=== PATIENT | female | born 1960 | race African-American/Black ===

== ENCOUNTER 2018-10-04 12:03 | Inpatient (IN) | payer OTHER ==
[2018-10-04 13:30] VITALS: BMI 24.4
--- NOTE | 2018-10-04 14:36 | HP ---
CIWA Score - CIWA Score Nausea/Vomitin Muscle Tremors: 2 Anxiety: 2 Agitation: 2 Paroxysmal Sweats: 1-Minimal Palms Moist Orientation: 0-Oriented Tacttile Disturbances: 1-Very Mild Itch/Numbness Auditory Disturbances: 1-Very Mild Visual Disturbances: 0-None Headache: 2-Mild CIWA-Ar Total Score: 13 CIWA Score Nausea/Vomitin Muscle Tremors: 2 Anxiety: 2 Agitation: 2 Paroxysmal Sweats: 1-Minimal Palms Moist Orientation: 0-Oriented Tacttile Disturbances: 1-Very Mild Itch/Numbness Auditory Disturbances: 1-Very Mild Visual Disturbances: 0-None Headache: 2-Mild CIWA-Ar Total Score: 13 - Admission Criteria Patient presents the following: CIWA greater than 12, Acute intervention needed for co-occurring med or psych disorder Admission Criteria Met: Admission criteria met Admission ROS BHS - HPI Chief Complaint: i need help to stop drinking alcohol,and cocaine Allergies/Adverse Reactions: Allergies Allergy/AdvReac Type Severity Reaction Status Date / Time No Known Allergies Allergy Verified 10/04/18 14:18 History of Present Illness: this 57 years old female with alcohol and cocaine dependence seeking detox, withdrawal symptom,last detox 2017 did not recall facility syncope alcohol related type 2 dm,asthma nicotine dependence bipolar disorder asthma fx of right knee 15 years ago longest period of sobriety 1 year Exam Limitations: No Limitations - Ebola screening Have you traveled outside of the country in the last 21 days: No Have you had contact with anyone from an Ebola affected area: No Have you been sick,other than usual withdrawal symptoms: No - Review of Systems Constitutional: Loss of Appetite, Malaise, Night Sweats, Changes in sleep, Weakness, Unintentional Wgt. Loss EENT: reports: Nose Congestion Respiratory: reports: No Symptoms reported Cardiac: reports: Palpitations GI: reports: Nausea, Poor Appetite, Abdominal cramping : reports: No Symptoms Reported Musculoskeletal: reports: Back Pain, Muscle Pain Integumentary: reports: Dryness Neuro: reports: Headache, Tremors Endocrine: reports: No Symptoms Reported Hematology: reports: No Symptoms Reported Psychiatric: reports: No Sypmtoms Reported, Judgement Intact, Mood/Affect Appropiate, Orientated x3 Patient History - Patient Medical History Hx Anemia: No Hx Asthma: Yes (Pt is on MDI.) Hx Chronic Obstructive Pulmonary Disease (COPD): No Hx Cancer: No Hx Cardiac Disorders: No Hx Hypertension: No Hx Hypercholesterolemia: No Hx Pacemaker: No HX Cerebrovascular Accident: No Hx Seizures: No Hx Dementia: No Hx Diabetes: Yes (type 2 dm on metformin) Hx Gastrointestinal Disorders: No Hx Liver Disease: No Hx Genitourinary Disorders: No Hx Sexually Transmitted Disorders: No Hx Renal Disease (ESRD): No Hx Thyroid Disease: No Hx Human Immunodeficiency Virus (HIV): No (last 08/17 negative) Hx Hepatitis C: No Hx Depression: Yes Hx Suicide Attempt: Yes (Tried to overdose 10 yrs ago.) Hx Bipolar Disorder: Yes Hx Schizophrenia: No Other Medical History: no suicidal,nohomicidal - Patient Surgical History Past Surgical History: Yes Hx Orthopedic Surgery: Yes (R knee sx for fx 15 yrs ago.) - PPD History Previous Implant?: Yes Documented Results: Negative w/o proof Implanted On Prior [facility] Admission?: No PPD to be Administered?: Yes - Reproductive History Patient is a Female of Child Bearing Age (11 -55 yrs old): No Patient : No - Smoking Cessation Smoking history: Current every day smoker Have you smoked in the past 12 months: Yes Aproximately how many cigarettes per day: 20 Hx Chewing Tobacco Use: No Initiated information on smoking cessation: Yes 'Breaking Loose' booklet given: 10/04/18 - Substance & Tx. History Hx Alcohol Use: Yes Hx Substance Use: Yes Substance Use Type: Alcohol, Cocaine Hx Substance Use Treatment: Yes (2017 didnot recall the facility) - Substances Abused Alcohol Route: Oral Frequency: Daily Amount used: 1 PINT VODKA Age of first use: 19 Date of Last Use: 10/03/18 Crack Route: Smoking Frequency: Daily Amount used: $100 Age of first use: 27 Date of Last Use: 10/03/18 Family Disease History - Family Disease History Family History: Denies Admission Physical Exam BHS - Vital Signs Vital Signs: Vital Signs - 24 hr 10/04/18 13:28 Temperature 98.7 F Pulse Rate 94 H Respiratory 20 Rate Blood Pressure 140/60 - Physical General Appearance: Yes: Moderate Distress, Tremorous, Irritable, Sweating, Anxious HEENTM: Yes: Normal ENT Inspection, ZACH, Pharynx Normal Respiratory: Yes: Lungs Clear, Normal Breath Sounds, No Respiratory Distress Neck: Yes: Within Normal Limits, Supple, Trachea in good position Breast: Yes: Breast Exam Deferred Cardiology: Yes: Within Normal Limits, Regular Rhythm, Regular Rate, S1, S2 Abdominal: Yes: Within Normal Limits, Normal Bowel Sounds, Non Tender, Soft Genitourinary: Yes: Within Normal Limits Back: Yes: Muscle Spasm Musculoskeletal: Yes: Back pain, Muscle Pain Extremities: Yes: Normal Range of Motion, Tremors, Other (painin the right knee s/p surgery) Neurological: Yes: special education paraprofessional II-XII NML intact, Fully Oriented, Alert, Motor Strength 5/5 Integumentary: Yes: Dry Lymphatic: Yes: Within Normal Limits - Diagnostic (1) Alcohol dependence with uncomplicated withdrawal Current Visit: Yes Status: Acute (2) Cocaine dependence Current Visit: Yes Status: Chronic (3) Syncope Current Visit: Yes Status: Acute (4) DM2 (diabetes mellitus, type 2) Current Visit: Yes Status: Acute (5) History of right knee surgery Current Visit: Yes Status: Acute (6) Bipolar disorder Current Visit: Yes Status: Acute (7) Asthma Current Visit: Yes Status: Acute Cleared for Admission [facility] - Detox or Rehab [facility] Level of Care: Medically Managed Detox Regimen/Protocol: Librium [facility] Breath Alcohol Content Breath Alcohol Content: 0 Urine Pregancy Test - Result Urine Test Results: Negative- NO Line Present Urine Drug Screen - Results Drug Screen Negative: No Urine Drug Screen Results: TUCKER-Cocaine, OXY-Oxycodone
[2018-10-04] MEDS ORDERED: chlordiazePOXIDE HCL 25 MG CAPSULE PO PRN (14:50)
[2018-10-04] MEDS ORDERED: ACETAMINOPHEN 325 MG TABLET (FP) PO PRN (14:50)
[2018-10-04] MEDS ORDERED: IBUPROFEN 400 MG TABLET (FP) PO PRN (14:50)
[2018-10-04] MEDS ORDERED: MAG HYDROX/AL HYDROX/SIMETH 30 ML UNIT-DOSE CUP PO PRN (14:50)
[2018-10-04] MEDS ORDERED: guaiFENesin/D-METHORPHAN HB 10 ML UNIT-DOSE CUPS PO PRN (14:50)
[2018-10-04] MEDS ORDERED: MAGNESIUM CITRATE 300 ML BOTTLE PO PRN (14:50)
[2018-10-04] MEDS ORDERED: P-EPHED 60MG/TRIPROLIDI 2.5MG TABLET PO PRN (14:50)
[2018-10-04] MEDS ORDERED: MENTHOL/PHENOL 1 EACH UD MM PRN (14:50)
[2018-10-04] MEDS ORDERED: LOPERAMIDE HCL 2 MG CAPSULE PO PRN (14:50)
[2018-10-04] MEDS ORDERED: MAGNESIUM HYDROX 2400MG/30ML ORAL SUSPENSION 30 ML CUP PO PRN (14:50)
[2018-10-04] MEDS: metFORMIN HCL 500 MG TABLET (FP) PO SCH (16:43)
[2018-10-04] MEDS: chlordiazePOXIDE HCL 25 MG CAPSULE PO SCH ×2 (16:43→22:08)
[2018-10-04] MEDS: NICOTINE 21 MG/24 HOURS TOPICAL PATCH TD SCH (16:43)
[2018-10-04] MEDS ORDERED: MELATONIN 5 MG TABLETS PO PRN (22:00)
[2018-10-04] MEDS: THIAMINE HCL 100 MG TABLET (FP) PO SCH (22:08)
[2018-10-05] MEDS: metFORMIN HCL 500 MG TABLET (FP) PO SCH ×2 (06:38→17:59)
[2018-10-05] MEDS: chlordiazePOXIDE HCL 25 MG CAPSULE PO SCH ×4 (06:38→22:39)
--- NOTE | 2018-10-05 09:25 | CONSULT ---
[facility] Psychiatric Consult - Data Date of interview: 10/05/18 Admission source: [facility] Identifying data: Patient is a 57 year old single female, without children, unemployed, homeless, and is supported by [facility]. This is one of multiple admissions for patient. Patient admitted to for alcohol and cocaine dependence. Substance Abuse History: Smoking Cessation. Smoking history: Current every day smoker. Have you smoked in the past 12 months: Yes. Aproximately how many cigarettes per day: 20. Hx Chewing Tobacco Use: No. Initiated information on smoking cessation: Yes. 'Breaking Loose' booklet given: 10/04/18. - Substance & Tx. History. Hx Alcohol Use: Yes. Hx Substance Use: Yes. Substance Use Type : Alcohol, Cocaine. Hx Substance Use Treatment: Yes (2017 didnot recall the facility). - Substances Abused. Alcohol. Route: Oral. Frequency: Daily. Amount used: 1 PINT VODKA. Age of first use: 19. Date of Last Use: 10/03/18. Crack. Route: Smoking. Frequency: Daily. Amount used: $100. Age of first use: 27. Date of Last Use: 10/03/18 Medical History: Asthma, diabetes, R knee sx for fx 15 yrs ago. Psychiatric History: Patient reports multiple psychiatric hospitalization, most recently last month at [facility] for depression and suicidal ideation. Patient is also known to [facility]. Patient unable to give a cohesive psychiatric histoy. Patient reports noncompliance to outpatient psychiatric care. Patient reports taking wellbutrin 150mg BID + and Remeron (unknown dose). Pharmacy claims reviewed and noted a prescription for wellbutrin 150mg SR BID + risperdal 1mg BID + Remeron 30mg qhs. Patient reports one suicide attempt in the past. Patient agreeable to restarting psychotropic medications. Physical/Sexual Abuse/Trauma History: denies. Mental Status Exam - Mental Status Exam Alert and Oriented to: Time, Place, Person Cognitive Function: Good Patient Appearance: Well Groomed Mood: Withdrawn, Euthymic Affect: Mood Congruent Patient Behavior: Fatigued Speech Pattern: Appropriate Voice Loudness: Moderately Soft/Quiet Thought Process: Intact, Goal Oriented Thought Disorder: Not Present Hallucinations: Denies Suicidal Ideation: Denies Homicidal Ideation: Denies Insight/Judgement: Poor Sleep: Poorly Appetite: Fair Muscle strength/Tone: Normal Gait/Station: Other (Patient ambulates with a cane.) Psychiatric Findings - Problem List ([place] 1, 2,3) (1) Substance induced mood disorder Current Visit: Yes Status: Acute (2) Alcohol dependence with uncomplicated withdrawal Current Visit: Yes Status: Acute (3) Cocaine dependence Current Visit: Yes Status: Acute (4) Mood disorder Current Visit: Yes Status: Suspected - Initial Treatment Plan Initial Treatment Plan: Psychoeducation provider. Detoxification in progress. Will order wellbutrin 150mg Xl + Risperdal 1mg BID + Mirtzapine 15mg qhs. Benefits and side effects discussed. Verbal consent given.
[2018-10-05] MEDS: PRENATAL VITAMINS W/ FOLIC ACID TABLET (FP) PO SCH (10:40)
[2018-10-05] MEDS: NICOTINE 21 MG/24 HOURS TOPICAL PATCH TD SCH (10:42)
--- NOTE | 2018-10-05 11:20 | PN ---
S CIWA - CIWA Score Nausea/Vomitin-No Nausea/No Vomiting Muscle Tremors: 3 Anxiety: 3 Agitation: 3 Paroxysmal Sweats: 3 Orientation: 0-Oriented Tacttile Disturbances: 0-None Auditory Disturbances: 0-None Visual Disturbances: 0-None Headache: 0-None Present CIWA-Ar Total Score: 12 BHS Progress Note (SOAP) Subjective: shakes sweats tired interrupted sleep irritable Objective: 10/05/18 11:19 Vital Signs Temperature 98.1 F 10/05/18 09:52 Pulse Rate 86 10/05/18 09:52 Respiratory Rate 18 10/05/18 09:52 Blood Pressure 136/72 10/05/18 09:52 O2 Sat by Pulse Oximetry (%) Laboratory Tests 10/04/18 10/04/18 10/05/18 14:29 16:00 06:34 POC Glucometer 132 105 HIV 1&2 Antibody Screen Negative HIV P24 Antigen Negative rest of labs pending aaox3 ambulating no acute distress Assessment: 10/05/18 11:19 withdrawal sx Plan: continue detox increase fluids labs pending
[2018-10-05 11:26] LABS: HEMATOCRIT 37.9 % (32.4-45.2); MCH 26.9 pg (25.7-33.7); MCHC 31.6 g/dl (32.0-36.0); MEAN CELL VOLUME 85.1 fl (80-96); MEAN PLT VOLUME 9.5 fl (7.5-11.1); PLATELET COUNT 265 K/MM3 (134-434); RBC 4.46 M/mm3 (3.60-5.2); RDW 15.9 % (11.6-15.6); WHITE BLOOD COUNT 4.6 K/mm3 (4.0-10.0)
[2018-10-05 11:42] LABS: ALBUMIN 3.4 g/dl (3.4-5.0); ALK PHOS 89 U/L (45-117); ANION GAP 8 MMOL/L (8-16); BILIRUBIN,TOTAL 0.2 mg/dL (0.2-1); BLOOD UREA NITROGEN 14 mg/dL (7-18); CALCIUM 9.1 mg/dL (8.5-10.1); CHLORIDE 104 mmol/L (98-107); CO2 28 mmol/L (21-32); CREATININE 0.7 mg/dL (0.55-1.3); GLUCOSE,RANDOM 106 mg/dL (74-106); POTASSIUM 4.2 mmol/L (3.5-5.1); SGOT/AST 15 U/L (15-37); SGPT/ALT 14 U/L (13-61); SODIUM 139 mmol/L (136-145); TOT PROT 7.1 g/dl (6.4-8.2)
--- NOTE | 2018-10-05 12:10 | EKG ---
Test Reason : Blood Pressure : / mmHG Vent. Rate : 087 BPM Atrial Rate : 087 BPM P-R Int : 188 ms QRS Dur : 082 ms QT Int : 364 ms P-R-T Axes : 049 034 062 degrees QTc Int : 438 ms NORMAL SINUS RHYTHM NORMAL ECG Confirmed by MD HAN GREGORY ([id number]) on 10/05/2018 12:10:14 PM Referred By: Confirmed By:UZMA HAN MD
--- NOTE | 2018-10-05 12:11 | EKG ---
Test Reason : Blood Pressure : / mmHG Vent. Rate : 091 BPM Atrial Rate : 091 BPM P-R Int : 186 ms QRS Dur : 090 ms QT Int : 356 ms P-R-T Axes : 065 038 068 degrees QTc Int : 437 ms NORMAL SINUS RHYTHM SEPTAL INFARCT , AGE UNDETERMINED ABNORMAL ECG NO PREVIOUS ECGS AVAILABLE Confirmed by MD EMELY, UZMA ([id number]) on 10/05/2018 12:10:52 PM Referred By: Confirmed By:UZMA HAN MD
[2018-10-05 20:43] LABS: URINE APPEARANCE CLOUDY; URINE BILIRUBIN NEGATIVE (<2.0 mg/dL); URINE COLOR YELLOW; URINE GLUCOSE (UA) NEGATIVE (NEGATIVE); URINE KETONE NEGATIVE (NEGATIVE); URINE LEUK ESTERASE TRACE (NEGATIVE); URINE NITRITE NEGATIVE (NEGATIVE); URINE PROTEIN NEGATIVE (NEGATIVE)
[2018-10-05 21:00] LABS: CALCIUM OXALATE CRYSTALS FEW /hpf (NONE SEEN); EPI CELLS RARE /HPF (FEW); URINE BACTERIA RARE /hpf (NONE SEEN); URINE MUCUS FEW
[2018-10-05] MEDS: MIRTAZAPINE 15 MG TABLET (FP) PO SCH (22:39)
[2018-10-05] MEDS: risperiDONE 1 MG TABLET (FP) PO SCH (22:39)
[2018-10-05] MEDS: THIAMINE HCL 100 MG TABLET (FP) PO SCH (22:39)
[2018-10-06] MEDS: chlordiazePOXIDE HCL 25 MG CAPSULE PO SCH ×2 (06:47→10:49)
[2018-10-06] MEDS: metFORMIN HCL 500 MG TABLET (FP) PO SCH ×2 (07:23→17:59)
[2018-10-06] MEDS: NICOTINE 21 MG/24 HOURS TOPICAL PATCH TD SCH (10:42)
[2018-10-06] MEDS: PRENATAL VITAMINS W/ FOLIC ACID TABLET (FP) PO SCH (10:42)
[2018-10-06] MEDS: risperiDONE 1 MG TABLET (FP) PO SCH ×2 (10:42→22:20)
--- NOTE | 2018-10-06 16:20 | PN ---
[facility] CIWA - CIWA Score Nausea/Vomitin-No Nausea/No Vomiting Muscle Tremors: 3 Anxiety: 1-Mildly Anxious Agitation: 2 Paroxysmal Sweats: 1-Minimal Palms Moist Orientation: 0-Oriented Tacttile Disturbances: 1-Very Mild Itch/Numbness Auditory Disturbances: 0-None Visual Disturbances: 0-None Headache: 1-Very Mild CIWA-Ar Total Score: 9 S Progress Note (SOAP) Subjective: tremor sweat anxiety restlessness ambulate with cane Objective: 10/06/18 16:19 Vital Signs Temperature 97.7 F 10/06/18 14:00 Pulse Rate 112 H 10/06/18 14:00 Respiratory Rate 16 10/06/18 14:00 Blood Pressure 135/76 10/06/18 14:00 O2 Sat by Pulse Oximetry (%) Laboratory Last Values WBC 4.6 K/mm3 (4.0-10.0) 10/05/18 06:00 RBC 4.46 M/mm3 (3.60-5.2) 10/05/18 06:00 Hgb 12.0 GM/dL (10.7-15.3) 10/05/18 06:00 Hct 37.9 % (32.4-45.2) 10/05/18 06:00 MCV 85.1 fl (80-96) 10/05/18 06:00 MCH 26.9 pg (25.7-33.7) 10/05/18 06:00 MCHC 31.6 g/dl (32.0-36.0) L 10/05/18 06:00 RDW 15.9 % (11.6-15.6) H 10/05/18 06:00 Plt Count 265 K/MM3 (134-434) 10/05/18 06:00 MPV 9.5 fl (7.5-11.1) 10/05/18 06:00 Sodium 139 mmol/L (136-145) 10/05/18 06:00 Potassium 4.2 mmol/L (3.5-5.1) 10/05/18 06:00 Chloride 104 mmol/L (98-107) 10/05/18 06:00 Carbon Dioxide 28 mmol/L (21-32) 10/05/18 06:00 Anion Gap 8 MMOL/L (8-16) 10/05/18 06:00 BUN 14 mg/dL (7-18) 10/05/18 06:00 Creatinine 0.7 mg/dL (0.55-1.3) 10/05/18 06:00 Creat Clearance w eGFR > 60 (>60) 10/05/18 06:00 POC Glucometer 85 UNITS (80-120) 10/06/18 06:49 Random Glucose 106 mg/dL (74-106) 10/05/18 06:00 Calcium 9.1 mg/dL (8.5-10.1) 10/05/18 06:00 Total Bilirubin 0.2 mg/dL (0.2-1) 10/05/18 06:00 AST 15 U/L (15-37) 10/05/18 06:00 ALT 14 U/L (13-61) 10/05/18 06:00 Alkaline Phosphatase 89 U/L (45-117) 10/05/18 06:00 Total Protein 7.1 g/dl (6.4-8.2) 10/05/18 06:00 Albumin 3.4 g/dl (3.4-5.0) 10/05/18 06:00 Urine Color Yellow 10/05/18 19:00 Urine Appearance Cloudy 10/05/18 19:00 Urine pH 7.0 (5.0-8.0) 10/05/18 19:00 Ur Specific [place] 1.017 (1.010-1.035) 10/05/18 19:00 Urine Protein Negative (NEGATIVE) 10/05/18 19:00 Urine Glucose (UA) Negative (NEGATIVE) 10/05/18 19:00 Urine Ketones Negative (NEGATIVE) 10/05/18 19:00 Urine Blood Negative (NEGATIVE) 10/05/18 19:00 Urine Nitrite Negative (NEGATIVE) 10/05/18 19:00 Urine Bilirubin Negative (<2.0 mg/dL) 10/05/18 19:00 Urine Urobilinogen 2.0 mg/dL (0.2-1.0) H 10/05/18 19:00 Ur Leukocyte Esterase Trace (NEGATIVE) 10/05/18 19:00 Urine WBC (Auto) 22 /hpf (3-5) 10/05/18 19:00 Urine RBC (Auto) None /hpf (0-3) 10/05/18 19:00 Ur Epithelial Cells Rare /HPF (FEW) 10/05/18 19:00 Calcium Oxalate Crystal Few /hpf (NONE SEEN) 10/05/18 19:00 Urine Bacteria Rare /hpf (NONE SEEN) 10/05/18 19:00 Urine Mucus Few 10/05/18 19:00 RPR Titer Nonreactive (NONREACTIVE) 10/05/18 06:00 HIV 1&2 Antibody Screen Negative 10/04/18 16:00 HIV P24 Antigen Negative 10/04/18 16:00 lab noted Assessment: 10/06/18 16:19 withdrawal sx Plan: continue detox
[2018-10-06] MEDS: chlordiazePOXIDE 5 MG CAPSULE PO SCH ×2 (18:01→22:20)
[2018-10-06] MEDS: THIAMINE HCL 100 MG TABLET (FP) PO SCH (22:20)
[2018-10-06] MEDS: MIRTAZAPINE 15 MG TABLET (FP) PO SCH (22:20)
[2018-10-07] MEDS: chlordiazePOXIDE 5 MG CAPSULE PO SCH ×2 (06:42→10:48)
[2018-10-07] MEDS: metFORMIN HCL 500 MG TABLET (FP) PO SCH ×2 (06:43→17:23)
[2018-10-07] MEDS: PRENATAL VITAMINS W/ FOLIC ACID TABLET (FP) PO SCH (10:47)
[2018-10-07] MEDS: NICOTINE 21 MG/24 HOURS TOPICAL PATCH TD SCH (10:48)
[2018-10-07] MEDS: risperiDONE 1 MG TABLET (FP) PO SCH ×2 (10:48→22:49)
--- NOTE | 2018-10-07 16:38 | PN ---
BHS Progress Note (SOAP) Subjective: feeling better no tremor less sweat sleep better at night discuss aftercare with counselor Objective: 10/07/18 16:41 Vital Signs Temperature 98.2 F 10/07/18 13:46 Pulse Rate 111 H 10/07/18 13:46 Respiratory Rate 17 10/07/18 13:46 Blood Pressure 132/73 10/07/18 13:46 O2 Sat by Pulse Oximetry (%) Laboratory Last Values WBC 4.6 K/mm3 (4.0-10.0) 10/05/18 06:00 RBC 4.46 M/mm3 (3.60-5.2) 10/05/18 06:00 Hgb 12.0 GM/dL (10.7-15.3) 10/05/18 06:00 Hct 37.9 % (32.4-45.2) 10/05/18 06:00 MCV 85.1 fl (80-96) 10/05/18 06:00 MCH 26.9 pg (25.7-33.7) 10/05/18 06:00 MCHC 31.6 g/dl (32.0-36.0) L 10/05/18 06:00 RDW 15.9 % (11.6-15.6) H 10/05/18 06:00 Plt Count 265 K/MM3 (134-434) 10/05/18 06:00 MPV 9.5 fl (7.5-11.1) 10/05/18 06:00 Sodium 139 mmol/L (136-145) 10/05/18 06:00 Potassium 4.2 mmol/L (3.5-5.1) 10/05/18 06:00 Chloride 104 mmol/L (98-107) 10/05/18 06:00 Carbon Dioxide 28 mmol/L (21-32) 10/05/18 06:00 Anion Gap 8 MMOL/L (8-16) 10/05/18 06:00 BUN 14 mg/dL (7-18) 10/05/18 06:00 Creatinine 0.7 mg/dL (0.55-1.3) 10/05/18 06:00 Creat Clearance w eGFR > 60 (>60) 10/05/18 06:00 POC Glucometer 113 UNITS (80-120) 10/07/18 06:40 Random Glucose 106 mg/dL (74-106) 10/05/18 06:00 Calcium 9.1 mg/dL (8.5-10.1) 10/05/18 06:00 Total Bilirubin 0.2 mg/dL (0.2-1) 10/05/18 06:00 AST 15 U/L (15-37) 10/05/18 06:00 ALT 14 U/L (13-61) 10/05/18 06:00 Alkaline Phosphatase 89 U/L (45-117) 10/05/18 06:00 Total Protein 7.1 g/dl (6.4-8.2) 10/05/18 06:00 Albumin 3.4 g/dl (3.4-5.0) 10/05/18 06:00 Urine Color Yellow 10/05/18 19:00 Urine Appearance Cloudy 10/05/18 19:00 Urine pH 7.0 (5.0-8.0) 10/05/18 19:00 Ur Specific [place] 1.017 (1.010-1.035) 10/05/18 19:00 Urine Protein Negative (NEGATIVE) 10/05/18 19:00 Urine Glucose (UA) Negative (NEGATIVE) 10/05/18 19:00 Urine Ketones Negative (NEGATIVE) 10/05/18 19:00 Urine Blood Negative (NEGATIVE) 10/05/18 19:00 Urine Nitrite Negative (NEGATIVE) 10/05/18 19:00 Urine Bilirubin Negative (<2.0 mg/dL) 10/05/18 19:00 Urine Urobilinogen 2.0 mg/dL (0.2-1.0) H 10/05/18 19:00 Ur Leukocyte Esterase Trace (NEGATIVE) 10/05/18 19:00 Urine WBC (Auto) 22 /hpf (3-5) 10/05/18 19:00 Urine RBC (Auto) None /hpf (0-3) 10/05/18 19:00 Ur Epithelial Cells Rare /HPF (FEW) 10/05/18 19:00 Calcium Oxalate Crystal Few /hpf (NONE SEEN) 10/05/18 19:00 Urine Bacteria Rare /hpf (NONE SEEN) 10/05/18 19:00 Urine Mucus Few 10/05/18 19:00 RPR Titer Nonreactive (NONREACTIVE) 10/05/18 06:00 HIV 1&2 Antibody Screen Negative 10/04/18 16:00 HIV P24 Antigen Negative 10/04/18 16:00 lab noted Assessment: 10/07/18 16:42 mild withdrawal sx Plan: medically supervised detox
[2018-10-07] MEDS: chlordiazePOXIDE HCL 10 MG CAPSULE PO SCH ×2 (17:23→22:49)
[2018-10-07] MEDS: THIAMINE HCL 100 MG TABLET (FP) PO SCH (22:49)
[2018-10-07] MEDS: MIRTAZAPINE 15 MG TABLET (FP) PO SCH (22:49)
[2018-10-08] MEDS: metFORMIN HCL 500 MG TABLET (FP) PO SCH (06:39)
[2018-10-08] MEDS: chlordiazePOXIDE HCL 10 MG CAPSULE PO SCH ×2 (06:39→10:59)
--- NOTE | 2018-10-08 09:23 | DS ---
[facility] Detox Discharge Summary Admission Date: 10/04/18 Discharge Date: 10/08/18 - History Present History: Alcohol Dependence - Physical Exam Results Vital Signs: Vital Signs Temperature 97.9 F 10/08/18 06:00 Pulse Rate 93 H 10/08/18 06:00 Respiratory Rate 18 10/08/18 06:00 Blood Pressure 98/63 10/08/18 06:00 O2 Sat by Pulse Oximetry (%) - Treatment Hospital Course: Detox Protocol Followed, Detoxed Safely, Responded well, Discharged Condition Good, Rehab Referral Accepted - Medication Discharge Medications: Ambulatory Orders Bupropion HCl [Wellbutrin Sr] 150 mg PO BID 10/04/18 Mirtazapine 15 mg PO HS 10/05/18 Risperidone [Risperdal] 1 mg PO BID 10/05/18 Metformin HCl [Glucophage] 500 mg PO BID #30 tablet 10/07/18 - Diagnosis (1) Alcohol dependence with uncomplicated withdrawal Current Visit: Yes Status: Chronic (2) Asthma Current Visit: Yes Status: Chronic Qualifiers: Asthma severity: mild Asthma persistence: intermittent (3) Bipolar disorder Current Visit: Yes Status: Acute (4) DM2 (diabetes mellitus, type 2) Current Visit: Yes Status: Acute (5) History of right knee surgery Current Visit: Yes Status: Acute (6) Substance induced mood disorder Current Visit: Yes Status: Acute (7) Syncope Current Visit: Yes Status: Acute (8) Cocaine dependence Current Visit: Yes Status: Chronic Qualifiers: Substance use status: uncomplicated Qualified Code(s): F14.20 - Cocaine dependence, uncomplicated (9) Mood disorder Current Visit: Yes Status: Suspected - AMA Did Patient Leave Against Medical Advice: No ([facility])
[2018-10-08 10:03] VITALS: BP 117/66; PULSE 107; TEMP 99.5
[2018-10-08] MEDS: risperiDONE 1 MG TABLET (FP) PO SCH (10:58)
[2018-10-08] MEDS: PRENATAL VITAMINS W/ FOLIC ACID TABLET (FP) PO SCH (10:58)
[2018-10-08] MEDS: NICOTINE 21 MG/24 HOURS TOPICAL PATCH TD SCH (10:59)
== END 2018-10-08 11:59 | disposition other institution (70) | DRG 774 ==
LOC: YASAS 12:03 → Y6N 14:37
PROC: HZ2ZZZZ Detoxification Services for Substance Abuse Treatment (ICD-10-PCS; principal; 2018-10-04)
DX: F10.230 Alcohol dependence with withdrawal, uncomplicated (principal); F14.20 Cocaine dependence, uncomplicated; F19.24 Other psychoactive substance dependence with psychoactive substance-induced mood disorder; F39 Unspecified mood [affective] disorder; F31.9 Bipolar disorder, unspecified; J45.20 Mild intermittent asthma, uncomplicated; E11.9 Type 2 diabetes mellitus without complications; Z79.84 Long term (current) use of oral hypoglycemic drugs; R55 Syncope and collapse; Z98.890 Other specified postprocedural states; Z91.5 Personal history of self-harm
CPT/HCPCS: 36415; 80053; 81003; 81015; 82962; 85027; 86593; 87389; 93005; 93010; J2794

== ENCOUNTER 2018-10-08 12:17 | Inpatient (IN) | payer OTHER ==
[2018-10-08 13:21] VITALS: BMI 24.4
[2018-10-08] MEDS ORDERED: ACETAMINOPHEN 325 MG TABLET (FP) PO PRN (14:26)
[2018-10-08] MEDS ORDERED: P-EPHED 60MG/TRIPROLIDI 2.5MG TABLET PO PRN (14:26)
[2018-10-08] MEDS ORDERED: MAGNESIUM HYDROX 2400MG/30ML ORAL SUSPENSION 30 ML CUP PO PRN (14:26)
[2018-10-08] MEDS ORDERED: LOPERAMIDE HCL 2 MG CAPSULE PO PRN (14:26)
[2018-10-08] MEDS ORDERED: MAGNESIUM CITRATE 300 ML BOTTLE PO PRN (14:26)
[2018-10-08] MEDS ORDERED: MAG HYDROX/AL HYDROX/SIMETH 30 ML UNIT-DOSE CUP PO PRN (14:26)
[2018-10-08] MEDS ORDERED: MENTHOL/PHENOL 1 EACH UD MM PRN (14:26)
[2018-10-08] MEDS ORDERED: IBUPROFEN 400 MG TABLET (FP) PO PRN (14:26)
[2018-10-08] MEDS ORDERED: guaiFENesin/D-METHORPHAN HB 10 ML UNIT-DOSE CUPS PO PRN (14:26)
--- NOTE | 2018-10-08 14:26 | HP ---
[facility] Rehab Assess/Revision - Admission History Admitted to Rehab [facility] - Vital signs Vital Signs: Vital Signs Period Temp Pulse Resp BP Sys/Coon Pulse Ox Last 24 Hr 97.2 F-97.2 F 105-105 18-18 109-109/78-78 - Findings Detox History & Physical reviewed: Yes Concur with findings: Yes
--- NOTE | 2018-10-08 14:59 | HP ---
Psychiatrist Admission - Data Date of interview: 10/08/18 Admission source: [address] [place] [address] Identifying data: This is the first admission to [address] [place] [address] rehsbilitao for this 57 years AA single childless female,homeless,supported by [facility]. Medical History: DM,BA,R knee surgery (metal plate insertion). Psychiatric History: First contact with psychiatrist was at 16 yo when she was admitted to [facility] due to severe depression,suicidal thoughts.Pt was dx with Depression,then with Bipolar disorder.She was placred on psychitropics medications adn d/c after a few daysl.Patient reports about 10 psychiatric hospitalizations,most recent was to [facility] last month for the same reason.Patient sees psychiatrist at [facility] .Current medications:Wellbutrin 150 mg po bid,Remeron 30 mg po hs and Risperdal 1 mg po bid.Reports one suicidal attempt in 2010(DOD). Physical/Sexual Abuse/Trauma History: denies Vital Signs: Vital Signs - 24 hr 10/08/18 10/08/18 12:58 13:21 Temperature 97.2 F L 97.2 F L Pulse Rate 105 H 105 H Respiratory 18 18 Rate Blood Pressure 109/78 109/78 Allergies/Adverse Reactions: Allergies Allergy/AdvReac Type Severity Reaction Status Date / Time No Known Allergies Allergy Verified 10/04/18 14:18 Date of last physical exam: 10/08/18 Concur with the findings of this exam: Yes - Substance Abuse/Tx History Hx Alcohol Use: Yes (reports drinking since 19 yo,about 1 pint ov vodka daily) Hx Substance Use: Yes (crack/cocaine since 27 yo,spending $100 daily) Substance Use Type: Alcohol, Cocaine Hx Substance Use Treatment: Yes (completed last inpatient rehab a few months ago ) Mental Status Exam - Mental Status Exam Alert and Oriented to: Time, Place, Person Cognitive Function: Grossly Intact Patient Appearance: Unkempt Mood: Sad Affect: Mood Congruent, Constricted Patient Behavior: Cooperative Speech Pattern: Clear Voice Loudness: Normal Thought Process: Goal Oriented Thought Disorder: Not Present Hallucinations: Denies Suicidal Ideation: Denies Homicidal Ideation: Denies Insight/Judgement: Fair Sleep: Fair Appetite: Fair Muscle strength/Tone: Normal Gait/Station: Normal Psychiatric Findings - Problem List ([place] 1, 2,3) (1) Bipolar disorder Current Visit: Yes Status: Chronic (2) DM2 (diabetes mellitus, type 2) Current Visit: Yes Status: Acute (3) History of right knee surgery Current Visit: No Status: Acute (4) Asthma Current Visit: No Status: Chronic (5) Cocaine dependence Current Visit: No Status: Chronic Qualifiers: (6) Alcohol dependence Current Visit: Yes Status: Chronic - Initial Treatment Plan Initial Treatment Plan: Remeron 30 mg po hs,Risperdal 1 mg po bid,Wellbutrin 150 mg po bid.
[2018-10-08] MEDS: buPROPion HCL 75 MG TABLET PO SCH (17:02)
[2018-10-08] MEDS: metFORMIN HCL 500 MG TABLET (FP) PO SCH (17:02)
[2018-10-08] MEDS ORDERED: MELATONIN 5 MG TABLETS PO PRN (22:00)
[2018-10-08] MEDS: risperiDONE 1 MG TABLET (FP) PO SCH (22:46)
[2018-10-08] MEDS: MIRTAZAPINE 30 MG TABLET (FP) PO SCH (22:46)
[2018-10-08] MEDS: THIAMINE HCL 100 MG TABLET (FP) PO SCH (22:46)
[2018-10-09] MEDS: metFORMIN HCL 500 MG TABLET (FP) PO SCH ×2 (06:56→17:35)
[2018-10-09] MEDS: buPROPion HCL 75 MG TABLET PO SCH ×2 (10:19→17:35)
[2018-10-09] MEDS: risperiDONE 1 MG TABLET (FP) PO SCH ×2 (10:20→21:49)
[2018-10-09] MEDS: PRENATAL VITAMINS W/ FOLIC ACID TABLET (FP) PO SCH (10:20)
[2018-10-09] MEDS: MIRTAZAPINE 30 MG TABLET (FP) PO SCH (21:49)
[2018-10-09] MEDS: THIAMINE HCL 100 MG TABLET (FP) PO SCH (21:49)
[2018-10-10] MEDS: metFORMIN HCL 500 MG TABLET (FP) PO SCH ×2 (06:42→17:06)
--- NOTE | 2018-10-10 07:49 | PN ---
[facility] Progress Note Note: MD'S NOTE: INFORMED AT ABOUT 7:00AM THAT THE PT. FELL ON THE FLOOR IN HER ROOM DENIES: ANY PAIN, INJURY OR HITTING THE HEAD C/O HERPES LESIONS ON THE LIPS AND GENITALIA OBJ: THE PT. IS RODRIGUEZ X 3, NOT IN DISTRESS AND SHE IS AMBULATORY. L/E: NO VISIBLE INJURIES OR FRACTURES NOTED CLINICALLY HERPES LESIONS NOTED ON CORNERS OF THE LIPS IMPRESSION: ACCIDENTAL FALL WITHOUT ANY INJURIES HERPES SIMPLEX PLANS: FALL PROTOCOL #2 ZOVIRAX 200 MGS. FIVE TIMES A DAY FOR 7-10 DAYS OBSERVATION WILL F/U: NEEDED PROVIDER: CHARLIE CASTAÑEDA MD
[2018-10-10] MEDS: buPROPion HCL 75 MG TABLET PO SCH ×2 (10:05→17:06)
[2018-10-10] MEDS: risperiDONE 1 MG TABLET (FP) PO SCH ×2 (10:05→21:39)
[2018-10-10] MEDS: PRENATAL VITAMINS W/ FOLIC ACID TABLET (FP) PO SCH (10:05)
[2018-10-10] MEDS: ACYCLOVIR 200 MG CAPSULE PO SCH ×4 (10:41→21:40)
[2018-10-10] MEDS: MIRTAZAPINE 30 MG TABLET (FP) PO SCH (21:39)
[2018-10-10] MEDS: THIAMINE HCL 100 MG TABLET (FP) PO SCH (21:39)
[2018-10-11] MEDS: metFORMIN HCL 500 MG TABLET (FP) PO SCH ×2 (06:39→17:26)
[2018-10-11] MEDS: ACYCLOVIR 200 MG CAPSULE PO SCH ×5 (06:39→21:55)
[2018-10-11] MEDS: risperiDONE 1 MG TABLET (FP) PO SCH ×2 (10:23→21:55)
[2018-10-11] MEDS: buPROPion HCL 75 MG TABLET PO SCH ×2 (10:23→17:26)
[2018-10-11] MEDS: PRENATAL VITAMINS W/ FOLIC ACID TABLET (FP) PO SCH (10:23)
[2018-10-11] MEDS: THIAMINE HCL 100 MG TABLET (FP) PO SCH (21:55)
[2018-10-11] MEDS: MIRTAZAPINE 30 MG TABLET (FP) PO SCH (21:55)
[2018-10-12] MEDS: metFORMIN HCL 500 MG TABLET (FP) PO SCH ×2 (06:45→17:03)
[2018-10-12] MEDS: ACYCLOVIR 200 MG CAPSULE PO SCH ×5 (06:45→21:32)
[2018-10-12] MEDS: buPROPion HCL 75 MG TABLET PO SCH ×2 (10:21→17:03)
[2018-10-12] MEDS: risperiDONE 1 MG TABLET (FP) PO SCH ×2 (10:22→21:32)
[2018-10-12] MEDS: PRENATAL VITAMINS W/ FOLIC ACID TABLET (FP) PO SCH (10:22)
--- NOTE | 2018-10-12 15:29 | HP ---
[facility] Rehab Assess/Revision - Vital signs Vital Signs: Vital Signs Period Temp Pulse Resp BP Sys/Coon Pulse Ox Last 24 Hr 98.2 F 101 16-18 111/78 Inpatient Rehab Admission - Initial Determination Are CD services needed?: Yes Free of communicable disease: Yes Not in need of hospitalization: Yes - Rehab Admission Criteria Previous failed treatment: Yes Poor recovery environment: Yes Comorbidities: Yes
[2018-10-12] MEDS ORDERED: PT OWN MED DRAWER 7, Y5N ONE (16:50)
[2018-10-12] MEDS: THIAMINE HCL 100 MG TABLET (FP) PO SCH (21:32)
[2018-10-12] MEDS: MIRTAZAPINE 30 MG TABLET (FP) PO SCH (21:32)
[2018-10-13] MEDS ORDERED: PT OWN MED DRAWER 7, Y5N ONE ×4 (02:46→16:35)
[2018-10-13] MEDS: metFORMIN HCL 500 MG TABLET (FP) PO SCH ×2 (06:46→16:35)
[2018-10-13] MEDS: ACYCLOVIR 200 MG CAPSULE PO SCH ×5 (06:46→21:41)
[2018-10-13] MEDS: buPROPion HCL 75 MG TABLET PO SCH ×2 (09:51→21:40)
[2018-10-13] MEDS: PRENATAL VITAMINS W/ FOLIC ACID TABLET (FP) PO SCH (09:51)
[2018-10-13] MEDS: risperiDONE 1 MG TABLET (FP) PO SCH ×2 (09:51→21:40)
[2018-10-13] MEDS ORDERED: COLLOIDAL OATMEAL 1 BAR EACH TP PRN (09:55)
--- NOTE | 2018-10-13 10:33 | PN ---
[facility] Progress Note Note: PT C/O YELLOWISH DISCHARGE WITH TING OF GREEN CREAMY AND FOUL ODOR. PT REPORTS SHE WAS TREATED WITH VAGINAL SUPPOSITORY 2-3 WEEKS AGO AT [facility] BUT DID NOT COMPLETE THE DOSE. TOOK IT FOR 2-3 DAYS AND WAS SUPPOSED TO TAKE FOR 10 DAYS. DENIES ITCHINESS. PT WAS IN DETOX [address] [place] [address] FROM 10/04/18 TO 10/08/18. Vital Signs - 24 hr 10/13/18 10/13/18 10/13/18 00:30 03:30 06:59 Temperature 97.3 F L Pulse Rate 94 H Respiratory 18 Rate Blood Pressure 114/79 Laboratory Tests 10/08/18 10/09/18 10/09/18 17:01 06:55 17:34 POC Glucometer 101 109 119 10/10/18 10/10/18 10/11/18 06:41 17:05 06:39 POC Glucometer 99 109 98 10/11/18 10/12/18 10/12/18 17:27 06:44 17:02 POC Glucometer 115 105 99 10/13/18 06:46 POC Glucometer 122 R/O UTI PLAN:UA; UC TODAY FOLLOW UP WITH RESULT.
[2018-10-13 17:25] LABS: URINE APPEARANCE CLEAR; URINE BILIRUBIN NEGATIVE (<2.0 mg/dL); URINE COLOR YELLOW; URINE GLUCOSE (UA) NEGATIVE (NEGATIVE); URINE KETONE NEGATIVE (NEGATIVE); URINE LEUK ESTERASE TRACE (NEGATIVE); URINE NITRITE NEGATIVE (NEGATIVE); URINE PROTEIN NEGATIVE (NEGATIVE); URINE UROBILINOGEN NEGATIVE mg/dL (0.2-1.0)
[2018-10-13 17:44] LABS: EPI CELLS RARE /HPF (FEW); URINE HYALINE CAST 1 /lpf; URINE MUCUS RARE
[2018-10-13] MEDS: THIAMINE HCL 100 MG TABLET (FP) PO SCH (21:40)
[2018-10-13] MEDS: MIRTAZAPINE 30 MG TABLET (FP) PO SCH (21:40)
[2018-10-14] MEDS: ACYCLOVIR 200 MG CAPSULE PO SCH ×5 (07:00→21:41)
[2018-10-14] MEDS: metFORMIN HCL 500 MG TABLET (FP) PO SCH ×2 (07:08→16:40)
[2018-10-14] MEDS: risperiDONE 1 MG TABLET (FP) PO SCH ×2 (09:07→21:40)
[2018-10-14] MEDS: PRENATAL VITAMINS W/ FOLIC ACID TABLET (FP) PO SCH (09:07)
[2018-10-14] MEDS: buPROPion HCL 75 MG TABLET PO SCH ×2 (09:07→17:00)
--- NOTE | 2018-10-14 14:18 | PN ---
S Progress Note Note: Microbiology 10/13/18 13:10 Urine - Urine Clean Catch Urine Culture - Final Diphtheroid/Corynebacterium 50,000 - 60,000 CFU/ml No further workup indicated. Pt reports asymptomatic.
[2018-10-14] MEDS ORDERED: PT OWN MED DRAWER 7, Y5N ONE (17:01)
[2018-10-14] MEDS: MIRTAZAPINE 30 MG TABLET (FP) PO SCH (21:40)
[2018-10-14] MEDS: THIAMINE HCL 100 MG TABLET (FP) PO SCH (21:40)
[2018-10-15] MEDS: ACYCLOVIR 200 MG CAPSULE PO SCH ×5 (08:08→21:45)
[2018-10-15] MEDS: metFORMIN HCL 500 MG TABLET (FP) PO SCH ×2 (08:08→16:55)
[2018-10-15] MEDS: PRENATAL VITAMINS W/ FOLIC ACID TABLET (FP) PO SCH (10:30)
[2018-10-15] MEDS: risperiDONE 1 MG TABLET (FP) PO SCH ×2 (10:30→21:46)
[2018-10-15] MEDS: buPROPion HCL 75 MG TABLET PO SCH ×2 (10:30→18:30)
[2018-10-15] MEDS ORDERED: PT OWN MED DRAWER 7, Y5N ONE ×3 (10:31→16:52)
[2018-10-15] MEDS: THIAMINE HCL 100 MG TABLET (FP) PO SCH (21:45)
[2018-10-15] MEDS: MIRTAZAPINE 30 MG TABLET (FP) PO SCH (21:46)
[2018-10-16] MEDS: metFORMIN HCL 500 MG TABLET (FP) PO SCH ×2 (07:02→17:03)
[2018-10-16] MEDS: ACYCLOVIR 200 MG CAPSULE PO SCH ×5 (07:02→21:56)
[2018-10-16] MEDS: buPROPion HCL 75 MG TABLET PO SCH ×2 (10:31→17:03)
[2018-10-16] MEDS: risperiDONE 1 MG TABLET (FP) PO SCH ×2 (10:32→21:56)
[2018-10-16] MEDS: PRENATAL VITAMINS W/ FOLIC ACID TABLET (FP) PO SCH (10:32)
[2018-10-16] MEDS ORDERED: PT OWN MED DRAWER 7, Y5N ONE (16:40)
[2018-10-16] MEDS: MIRTAZAPINE 30 MG TABLET (FP) PO SCH (21:56)
[2018-10-16] MEDS: THIAMINE HCL 100 MG TABLET (FP) PO SCH (21:56)
[2018-10-17] MEDS: ACYCLOVIR 200 MG CAPSULE PO SCH (06:57)
[2018-10-17] MEDS: metFORMIN HCL 500 MG TABLET (FP) PO SCH ×2 (06:57→16:53)
[2018-10-17] MEDS: risperiDONE 1 MG TABLET (FP) PO SCH ×2 (10:21→21:42)
[2018-10-17] MEDS: buPROPion HCL 75 MG TABLET PO SCH ×2 (10:21→17:03)
[2018-10-17] MEDS: PRENATAL VITAMINS W/ FOLIC ACID TABLET (FP) PO SCH (10:21)
[2018-10-17] MEDS ORDERED: PT OWN MED DRAWER 7, Y5N ONE ×2 (16:35→23:58)
[2018-10-17] MEDS: MIRTAZAPINE 30 MG TABLET (FP) PO SCH (21:42)
[2018-10-17] MEDS: THIAMINE HCL 100 MG TABLET (FP) PO SCH (21:42)
[2018-10-17] MEDS ORDERED: ACYCLOVIR 200 MG CAPSULE PO SCH (22:15)
[2018-10-18] MEDS ORDERED: PT OWN MED DRAWER 7, Y5N ONE ×4 (03:12→17:04)
[2018-10-18] MEDS: metFORMIN HCL 500 MG TABLET (FP) PO SCH ×2 (06:36→17:04)
[2018-10-18] MEDS: ACYCLOVIR 200 MG CAPSULE PO SCH ×5 (06:36→21:44)
[2018-10-18] MEDS: risperiDONE 1 MG TABLET (FP) PO SCH ×2 (10:15→21:44)
[2018-10-18] MEDS: PRENATAL VITAMINS W/ FOLIC ACID TABLET (FP) PO SCH (10:15)
[2018-10-18] MEDS: buPROPion HCL 75 MG TABLET PO SCH ×2 (10:15→17:04)
--- NOTE | 2018-10-18 11:12 | PN ---
S Progress Note Note: PT REPORTS BLOOD IN TISSUE BUT NOT IN STOOL . REPORTS SHE WAS STRAING AND ALSO HAS A HX OF HEMORRHOID. Vital Signs 10/18/18 10/18/18 03:30 07:01 Temperature 98.1 F Pulse Rate 93 H Respiratory 18 16 Rate Blood Pressure 104/69 NAD PLAN:ANUSOL HC 2.5 % DIRECTED
[2018-10-18] MEDS: HYDROCORTISONE 2.5% TOPICAL CREAM 30 GM TUBE TP SCH ×2 (12:44→21:45)
[2018-10-18] MEDS: THIAMINE HCL 100 MG TABLET (FP) PO SCH (21:44)
[2018-10-18] MEDS: MIRTAZAPINE 30 MG TABLET (FP) PO SCH (21:44)
[2018-10-19] MEDS ORDERED: PT OWN MED DRAWER 7, Y5N ONE ×2 (05:51→11:21)
[2018-10-19] MEDS: metFORMIN HCL 500 MG TABLET (FP) PO SCH ×2 (07:02→16:57)
[2018-10-19] MEDS: ACYCLOVIR 200 MG CAPSULE PO SCH ×5 (07:02→21:38)
[2018-10-19] MEDS: risperiDONE 1 MG TABLET (FP) PO SCH ×2 (10:19→21:37)
[2018-10-19] MEDS: PRENATAL VITAMINS W/ FOLIC ACID TABLET (FP) PO SCH (10:19)
[2018-10-19] MEDS: HYDROCORTISONE 2.5% TOPICAL CREAM 30 GM TUBE TP SCH ×2 (10:19→21:38)
[2018-10-19] MEDS: buPROPion HCL 75 MG TABLET PO SCH ×2 (10:19→18:30)
[2018-10-19] MEDS ORDERED: COLLOIDAL OATMEAL 1 BAR EACH TP PRN (15:26)
[2018-10-19] MEDS: MIRTAZAPINE 30 MG TABLET (FP) PO SCH (21:37)
[2018-10-19] MEDS: THIAMINE HCL 100 MG TABLET (FP) PO SCH (21:37)
[2018-10-20] MEDS: metFORMIN HCL 500 MG TABLET (FP) PO SCH (06:43)
[2018-10-20] MEDS: ACYCLOVIR 200 MG CAPSULE PO SCH ×2 (06:43→09:36)
[2018-10-20 07:13] VITALS: BP 108/69; PULSE 91; TEMP 97.9
[2018-10-20] MEDS: risperiDONE 1 MG TABLET (FP) PO SCH (09:37)
[2018-10-20] MEDS: PRENATAL VITAMINS W/ FOLIC ACID TABLET (FP) PO SCH (09:37)
[2018-10-20] MEDS: buPROPion HCL 75 MG TABLET PO SCH (09:37)
[2018-10-20] MEDS: HYDROCORTISONE 2.5% TOPICAL CREAM 30 GM TUBE TP SCH (09:38)
--- NOTE | 2018-10-20 09:39 | PN ---
[facility] Progress Note Note: Called by nursing staff to enter discharge order for patient completing the program today. She is referred for outpatient treatment at [facility] at [address] [place] [address]. Her medications(Risperdal, wellbutrin XL, Mirtazapine) are electronically transmitted to [facility] at [address] [place] [address]. As per nursing staff, she is stable for discharge today. Refer to staff's discharge summary for further information.
== END 2018-10-20 09:45 | disposition home or self-care (01) | DRG 772 ==
LOC: YASAS 12:17 → Y3E 12:19
PROVIDERS: ADMIT Psychiatry & Neurology Psychiatry; ATTEND Psychiatry & Neurology Psychiatry
PROC: HZ42ZZZ Group Counseling for Substance Abuse Treatment, Cognitive-Behavioral (ICD-10-PCS; principal; 2018-10-08)
DX: F10.20 Alcohol dependence, uncomplicated (principal); F14.20 Cocaine dependence, uncomplicated; F31.9 Bipolar disorder, unspecified; J45.909 Unspecified asthma, uncomplicated; E11.9 Type 2 diabetes mellitus without complications; Z79.84 Long term (current) use of oral hypoglycemic drugs; B00.1 Herpesviral vesicular dermatitis; A60.09 Herpesviral infection of other urogenital tract; Z98.890 Other specified postprocedural states; Z91.81 History of falling
CPT/HCPCS: 81003; 81015; 82962; 87086; J2794

== ENCOUNTER 2019-08-24 11:56 | Inpatient (IN) | payer OTHER ==
[2019-08-24 13:16] VITALS: BMI 24.5
--- NOTE | 2019-08-24 14:16 | HP ---
CIWA Score Nausea/Vomitin-Mild Nausea/No Vomiting Muscle Tremors: 3 Anxiety: 4-Mod. Anxious/Guarded Agitation: 3 Paroxysmal Sweats: No Perspiration Orientation: 1-Uncertain about Date Tacttile Disturbances: 0-None Auditory Disturbances: 0-None Visual Disturbances: 0-None Headache: 1-Very Mild CIWA-Ar Total Score: 13 - Admission Criteria OASAS Guidelines: Admission for Medically Managed Detox: Requires at least one of the followin. CIWA greater than 12 2. Seizures within the past 24 hours 3. Delirium tremens within the past 24 hours 4. Hallucinations within the past 24 hours 5. Acute intervention needed for co occurring medical disorder 6. Acute intervention needed for co occurring psychiatric disorder 7. Severe withdrawal that cannot be handled at a lower level of care (continued vomiting, continued diarrhea, abnormal vital signs) requiring intravenous medication and/or fluids 8. Patient presents the following: CIWA greater than 12 Admission Criteria Met: Admission criteria met Admission ROS S - [facility] Chief Complaint: Wero Machado is a 58 year old female presenting for cocaine and alcohol detox. Allergies/Adverse Reactions: Allergies Allergy/AdvReac Type Severity Reaction Status Date / Time No Known Allergies Allergy Verified 08/24/19 13:04 History of Present Illness: Wero Machado is a 58 year old female presenting for cocaine and alcohol detox. Alcohol: Drinks 1 pint a day. has been drinking "for a long time". Started drinking when she was in her mid 20s. Last drink was yesterday. Denies seizures, blackouts, falls and head hits. Longest period of sobriety: 11 months. Reason for relapse uncertain. has poor appetite when she drinks. Cocaine: 200$ per day. Smoking. Denies IVDU. Last use was yesterday. Has been to detox and rehab in the past. Most recent at this facility last September. After detox, plans are to return to the [place] [facility]. Denies wanting to go to rehab. Has friend that she is in contact with that can assist her. Medical History: DM, HLD, asthma, COPD, depression, lung CA (surgery, lobectomy) Surgical: lobectomy, neck surgery Social: [facility]. Unemployed. Uses disability to pay for habit. No family contacts. Smokin/2 PPD PCP: Dr. Enrique ([facility]) - Ebola screening Have you traveled outside of the country in the last 21 days: No Have you had contact with anyone from an Ebola affected area: No Do you have a fever: No - Review of Systems Constitutional: Chills, Changes in sleep EENT: reports: No Symptoms Reported Respiratory: reports: Cough Cardiac: reports: No Symptoms Reported GI: reports: No Symptoms Reported : reports: No Symptoms Reported Musculoskeletal: reports: Neck Pain Integumentary: reports: No Symptoms Reported Neuro: reports: No Symptoms reported Endocrine: reports: No Symptoms Reported Hematology: reports: No Symptoms Reported Psychiatric: reports: No Sypmtoms Reported, Agitated, Anxious Patient History - Patient Medical History Hx Anemia: No Hx Asthma: Yes Hx Chronic Obstructive Pulmonary Disease (COPD): No Hx Cancer: Yes (lung CA s/p lobectomy) Hx Cardiac Disorders: No Hx Hypertension: No Hx Hypercholesterolemia: Yes Hx Pacemaker: No HX Cerebrovascular Accident: No Hx Seizures: No Hx Dementia: No Hx Diabetes: Yes Hx Gastrointestinal Disorders: No Hx Liver Disease: No Hx Genitourinary Disorders: No Hx Sexually Transmitted Disorders: No Hx Renal Disease (ESRD): No Hx Thyroid Disease: No Hx Human Immunodeficiency Virus (HIV): No (last 08/17 negative) Hx Hepatitis C: No Hx Depression: Yes Hx Suicide Attempt: Yes (OD on pills in 2010) Hx Bipolar Disorder: Yes Hx Schizophrenia: No - Patient Surgical History Past Surgical History: Yes Hx Lung Surgery: Yes (lobectomy August 2017) Hx Orthopedic Surgery: Yes (R knee sx for fx 15 yrs ago.And left knee sx 20yrs ago) - PPD History Previous Implant?: Yes Documented Results: Negative w/o proof Implanted On Prior R Admission?: Yes Date: 10/06/18 Results: 0mm PPD to be Administered?: No - Reproductive History Patient is a Female of Child Bearing Age (11 -55 yrs old): No - Smoking Cessation Smoking history: Current every day smoker Have you smoked in the past 12 months: Yes Aproximately how many cigarettes per day: 20 Hx Chewing Tobacco Use: No Initiated information on smoking cessation: Yes 'Breaking Loose' booklet given: 08/24/19 - Substance & Tx. History Hx Alcohol Use: Yes Hx Substance Use: Yes Substance Use Type: Alcohol, Cocaine Hx Substance Use Treatment: Yes - Substances abused Cocaine Substance route: Smoking Frequency: Daily Amount used: $200 Age of first use: 27 Date of last use: 08/23/19 Alcohol Substance route: Oral Frequency: Daily Amount used: 1 [place] Age of first use: 19 Date of last use: 08/23/19 Admission Physical Exam [facility] - Vital Signs Vital Signs: Vital Signs - 24 hr 08/24/19 13:04 Temperature 98.2 F Pulse Rate 96 H Respiratory 18 Rate Blood Pressure 127/87 - Physical General Appearance: Yes: Appropriately Dressed, Disheveled, Mild Distress HEENTM: Yes: Hearing grossly Normal, Normocephalic, Normal Voice, ZACH Respiratory: Yes: Chest Non-Tender, Lungs Clear, Normal Breath Sounds, No Respiratory Distress, No Accessory Muscle Use Neck: Yes: No masses,lesions,Nodules, Trachea in good position Breast: Yes: Breast Exam Deferred Cardiology: Yes: Regular Rhythm, Regular Rate, S1, S2 Abdominal: Yes: Normal Bowel Sounds, Non Tender, Soft, Distended Genitourinary: Yes: Within Normal Limits Back: Yes: Normal Inspection Musculoskeletal: Yes: full range of Motion, Gait Steady Extremities: Yes: Normal Capillary Refill, Normal Inspection, Normal Range of Motion, Non-Tender Neurological: Yes: automotive starter repairer II-XII NML intact, Fully Oriented, Alert, Motor Strength 5/5, Normal Mood/Affect Integumentary: Yes: Dry, Cold - Diagnostic (1) Substance induced mood disorder Current Visit: No Status: Acute (2) Alcohol dependence with uncomplicated withdrawal Current Visit: No Status: Chronic (3) Asthma Current Visit: No Status: Chronic (4) Bipolar disorder Current Visit: No Status: Chronic (5) Cocaine dependence Current Visit: No Status: Chronic Qualifiers: (6) DM2 (diabetes mellitus, type 2) Current Visit: No Status: Chronic (7) History of right knee surgery Current Visit: No Status: Resolved (8) History of lung cancer Current Visit: Yes Status: Acute Cleared for Admission [facility] - Detox or Rehab [facility] Level of Care: Medically Managed Detox Regimen/Protocol: Librium Breathalyzer - Breathalyzer Breathalyzer: 0 Urine Drug Screen - Test Device Lot number: [id number] Expiration date: 04/29/21 - Control Is test valid?: Yes - Results Drug screen NEGATIVE: Yes Urine drug screen results: [facility]-Cocaine Inpatient Rehab Admission - Rehab Decision to Admit Inpatient rehab admission?: No
--- NOTE | 2019-08-24 14:37 | PN ---
Teaching Attending Note Name of Resident: Guanako Boothe ATTENDING PHYSICIAN STATEMENT I saw and evaluated the patient. I reviewed the resident's note and discussed the case with the resident. I agree with the resident's findings and plan as documented. SUBJECTIVE: 58 yo with h/o lung lobectomy for lung cancer. Here for alcohol use disorder and cocaine use ($200/day). smokes 1/2 PPD alcohol-daily use OBJECTIVE: Vital Signs - 24 hr 08/24/19 13:04 Temperature 98.2 F Pulse Rate 96 H Respiratory 18 Rate Blood Pressure 127/87 tremulous alert and oriented ASSESSMENT AND PLAN: alcohol use disorder- librium detox protocol
[2019-08-24] MEDS ORDERED: ACETAMINOPHEN 325 MG TABLET (FP) PO PRN ×2 (14:42)
[2019-08-24] MEDS ORDERED: MAGNESIUM HYDROX 2400MG/30ML ORAL SUSPENSION 30 ML CUP PO PRN (14:42)
[2019-08-24] MEDS ORDERED: BISMUTH SUBSALICYLATE 262 MG/15 ML BTL PO PRN (14:42)
[2019-08-24] MEDS ORDERED: hydrOXYzine PAMOATE 25 MG CAPSULE (FP) PO PRN (14:42)
[2019-08-24] MEDS ORDERED: MENTHOL/PHENOL 1 EACH UD MM PRN (14:42)
[2019-08-24] MEDS ORDERED: MAG HYDROX/AL HYDROX/SIMETH 30 ML UNIT-DOSE CUP PO PRN (14:42)
[2019-08-24] MEDS ORDERED: MELATONIN 5 MG TABLETS PO PRN (14:42)
[2019-08-24] MEDS ORDERED: chlordiazePOXIDE HCL 10 MG CAPSULE PO PRN (14:42)
[2019-08-24] MEDS ORDERED: MAGNESIUM CITRATE 300 ML BOTTLE PO PRN (14:42)
[2019-08-24] MEDS ORDERED: IBUPROFEN 400 MG TABLET (FP) PO PRN (14:42)
[2019-08-24] MEDS ORDERED: ALBUTEROL SO4 8 GM HFA INHALER IH PRN (14:56)
[2019-08-24 17:12] LABS: HEMATOCRIT 32.9 % (32.4-45.2); HEMOGLOBIN 10.3 GM/dL (10.7-15.3); MCH 24.8 pg (25.7-33.7); MCHC 31.4 g/dl (32.0-36.0); MEAN CELL VOLUME 78.9 fl (80-96); RBC 4.17 M/mm3 (3.60-5.2); RDW 18.8 % (11.6-15.6); WHITE BLOOD COUNT 5.8 K/mm3 (4.0-10.0)
[2019-08-24 17:25] LABS: BILIRUBIN,TOTAL 0.3 mg/dL (0.2-1); BLOOD UREA NITROGEN 5.8 mg/dL (7-18); CALCIUM 8.8 mg/dL (8.5-10.1); CREATININE 0.5 mg/dL (0.55-1.3); POTASSIUM 3.5 mmol/L (3.5-5.1); TOT PROT 7.1 g/dl (6.4-8.2)
[2019-08-24 17:37] LABS: MEAN PLT VOLUME 8.9 fl (7.5-11.1)
[2019-08-24 17:38] LABS: PLATELET COUNT 278 K/MM3 (134-434)
[2019-08-24] MEDS: metFORMIN HCL 500 MG TABLET (FP) PO SCH (17:44)
[2019-08-24] MEDS ORDERED: BUDESONIDE/FORMETEROL FUMARATE 80/4.5 mcg INHALER IH SCH (22:00)
[2019-08-24] MEDS ORDERED: PATIENT'S OWN MEDICATION (NON-FORMULARY) (Mometasone/Formoterol [Dulera 100 Mcg/5 Mcg Inha IH SCH (22:00)
[2019-08-24] MEDS: chlordiazePOXIDE HCL 25 MG CAPSULE PO SCH (22:33)
[2019-08-24] MEDS: ATORVASTATIN CA 20 MG TABLET (FP) PO SCH (22:33)
[2019-08-24] MEDS: BUDESONIDE/FORMETEROL FUMARATE 80/4.5 mcg INHALER IH SCH (22:34)
[2019-08-24] MEDS: THIAMINE HCL 100 MG TABLET (FP) PO SCH (22:35)
[2019-08-25] MEDS: chlordiazePOXIDE HCL 25 MG CAPSULE PO SCH ×3 (06:54→23:03)
[2019-08-25] MEDS: metFORMIN HCL 500 MG TABLET (FP) PO SCH ×2 (07:54→17:18)
[2019-08-25] MEDS: RANITIDINE HCL 150 MG TABLET (FP) PO SCH (10:25)
[2019-08-25] MEDS: PRENATAL VITAMINS W/ FOLIC ACID TABLET (FP) PO SCH (10:25)
[2019-08-25] MEDS: NICOTINE 14 MG/24 HOURS TOPICAL PATCH TD SCH (10:25)
[2019-08-25] MEDS: MONTELUKAST NA 10 MG TABLET PO SCH (10:25)
[2019-08-25] MEDS: BUDESONIDE/FORMETEROL FUMARATE 80/4.5 mcg INHALER IH SCH ×2 (10:25→23:04)
--- NOTE | 2019-08-25 12:50 | PN ---
[facility] CIWA - CIWA Score Nausea/Vomitin-No Nausea/No Vomiting Muscle Tremors: 3 Anxiety: 2 Agitation: 3 Paroxysmal Sweats: 2 Orientation: 0-Oriented Tacttile Disturbances: 0-None Auditory Disturbances: 0-None Visual Disturbances: 0-None Headache: 0-None Present CIWA-Ar Total Score: 10 S Progress Note (SOAP) Subjective: anxiety sweats interrupted sleep body aches Objective: 08/25/19 12:49 Vital Signs Temperature 97.1 F L 08/25/19 09:49 Pulse Rate 99 H 08/25/19 09:49 Respiratory Rate 18 08/25/19 09:49 Blood Pressure 118/58 L 08/25/19 09:49 O2 Sat by Pulse Oximetry (%) Laboratory Tests 08/24/19 08/24/19 08/24/19 14:50 14:50 15:03 WBC 5.8 RBC 4.17 Hgb 10.3 L Hct 32.9 MCV 78.9 L MCH 24.8 L MCHC 31.4 L RDW 18.8 H Plt Count 278 MPV 8.9 Sodium 141 Potassium 3.5 Chloride 106 Carbon Dioxide 28 Anion Gap 7 L BUN 5.8 L Creatinine 0.5 L Est GFR (CKD-EPI)AfAm 122.78 Est GFR (CKD-EPI)NonAf 105.94 POC Glucometer 143 Random Glucose 144 H Calcium 8.8 Total Bilirubin 0.3 AST 11 L ALT 11 L Alkaline Phosphatase 101 Total Protein 7.1 Albumin 3.0 L RPR Titer HIV 1&2 Antibody Screen HIV P24 Antigen 08/24/19 08/25/19 08/25/19 16:26 06:56 08:00 WBC RBC Hgb Hct MCV MCH MCHC RDW Plt Count MPV Sodium Potassium Chloride Carbon Dioxide Anion Gap BUN Creatinine Est GFR (CKD-EPI)AfAm Est GFR (CKD-EPI)NonAf POC Glucometer 128 127 Random Glucose Calcium Total Bilirubin AST ALT Alkaline Phosphatase Total Protein Albumin RPR Titer HIV 1&2 Antibody Screen Negative HIV P24 Antigen Negative 08/25/19 08:00 WBC RBC Hgb Hct MCV MCH MCHC RDW Plt Count MPV Sodium Potassium Chloride Carbon Dioxide Anion Gap BUN Creatinine Est GFR (CKD-EPI)AfAm Est GFR (CKD-EPI)NonAf POC Glucometer Random Glucose Calcium Total Bilirubin AST ALT Alkaline Phosphatase Total Protein Albumin RPR Titer Nonreactive HIV 1&2 Antibody Screen HIV P24 Antigen labs noted aaox3 ambulating no acute distress Assessment: 08/25/19 12:50 withdrawals Plan: continue detox increase fluids
--- NOTE | 2019-08-25 17:06 | CONSULT ---
[facility] Psychiatric Consult - Data Date of interview: 08/25/19 Admission source: [facility] Identifying data: Gardening Instructor approched patient for psychiatric consultation. Patient refused to be seen. Stated to video game script writer, " Not right now" and returned to sleep. Psychiatric consultation refused.
[2019-08-25] MEDS: METHOCARBAMOL 500 MG TABLET PO PRN (17:18)
[2019-08-25] MEDS: ATORVASTATIN CA 20 MG TABLET (FP) PO SCH (23:04)
[2019-08-25] MEDS: THIAMINE HCL 100 MG TABLET (FP) PO SCH (23:04)
[2019-08-26] MEDS: metFORMIN HCL 500 MG TABLET (FP) PO SCH ×2 (06:58→16:53)
[2019-08-26] MEDS: METHOCARBAMOL 500 MG TABLET PO PRN (06:58)
[2019-08-26] MEDS: chlordiazePOXIDE 5 MG CAPSULE PO SCH ×3 (07:19→23:19)
[2019-08-26] MEDS: PRENATAL VITAMINS W/ FOLIC ACID TABLET (FP) PO SCH (10:43)
[2019-08-26] MEDS: BUDESONIDE/FORMETEROL FUMARATE 80/4.5 mcg INHALER IH SCH ×2 (10:43→23:20)
[2019-08-26] MEDS: RANITIDINE HCL 150 MG TABLET (FP) PO SCH (10:43)
[2019-08-26] MEDS: NICOTINE 14 MG/24 HOURS TOPICAL PATCH TD SCH (10:43)
[2019-08-26] MEDS: MONTELUKAST NA 10 MG TABLET PO SCH (10:43)
--- NOTE | 2019-08-26 12:03 | PN ---
S CIWA - CIWA Score Nausea/Vomitin-No Nausea/No Vomiting Muscle Tremors: 3 Anxiety: 2 Agitation: 2 Paroxysmal Sweats: 2 Orientation: 0-Oriented Tacttile Disturbances: 0-None Auditory Disturbances: 0-None Visual Disturbances: 0-None Headache: 0-None Present CIWA-Ar Total Score: 9 [facility] Progress Note (SOAP) Subjective: body aches sweats shakes Objective: 08/26/19 12:00 Vital Signs Temperature 97.4 F L 08/26/19 09:36 Pulse Rate 97 H 08/26/19 09:36 Respiratory Rate 18 08/26/19 09:36 Blood Pressure 126/63 08/26/19 09:36 O2 Sat by Pulse Oximetry (%) Laboratory Tests 08/24/19 08/24/19 08/24/19 14:50 14:50 15:03 WBC 5.8 RBC 4.17 Hgb 10.3 L Hct 32.9 MCV 78.9 L MCH 24.8 L MCHC 31.4 L RDW 18.8 H Plt Count 278 MPV 8.9 Sodium 141 Potassium 3.5 Chloride 106 Carbon Dioxide 28 Anion Gap 7 L BUN 5.8 L Creatinine 0.5 L Est GFR (CKD-EPI)AfAm 122.78 Est GFR (CKD-EPI)NonAf 105.94 POC Glucometer 143 Random Glucose 144 H Calcium 8.8 Total Bilirubin 0.3 AST 11 L ALT 11 L Alkaline Phosphatase 101 Total Protein 7.1 Albumin 3.0 L RPR Titer HIV 1&2 Antibody Screen HIV P24 Antigen 08/24/19 08/25/19 08/25/19 16:26 06:56 08:00 WBC RBC Hgb Hct MCV MCH MCHC RDW Plt Count MPV Sodium Potassium Chloride Carbon Dioxide Anion Gap BUN Creatinine Est GFR (CKD-EPI)AfAm Est GFR (CKD-EPI)NonAf POC Glucometer 128 127 Random Glucose Calcium Total Bilirubin AST ALT Alkaline Phosphatase Total Protein Albumin RPR Titer HIV 1&2 Antibody Screen Negative HIV P24 Antigen Negative 08/25/19 08/25/19 08/26/19 08:00 17:00 06:55 WBC RBC Hgb Hct MCV MCH MCHC RDW Plt Count MPV Sodium Potassium Chloride Carbon Dioxide Anion Gap BUN Creatinine Est GFR (CKD-EPI)AfAm Est GFR (CKD-EPI)NonAf POC Glucometer 117 112 Random Glucose Calcium Total Bilirubin AST ALT Alkaline Phosphatase Total Protein Albumin RPR Titer Nonreactive HIV 1&2 Antibody Screen HIV P24 Antigen labs noted aaox3 ambulating no acute distress Assessment: 08/26/19 12:04 withdrawal sx Plan: continue detox increase fluids
[2019-08-26] MEDS: ATORVASTATIN CA 20 MG TABLET (FP) PO SCH (23:20)
[2019-08-26] MEDS: THIAMINE HCL 100 MG TABLET (FP) PO SCH (23:21)
[2019-08-27] MEDS ORDERED: chlordiazePOXIDE HCL 10 MG CAPSULE PO PRN
[2019-08-27] MEDS: chlordiazePOXIDE HCL 10 MG CAPSULE PO SCH ×3 (06:11→21:29)
[2019-08-27] MEDS: metFORMIN HCL 500 MG TABLET (FP) PO SCH ×2 (07:13→16:59)
[2019-08-27] MEDS: METHOCARBAMOL 500 MG TABLET PO PRN (07:13)
[2019-08-27] MEDS: NICOTINE 14 MG/24 HOURS TOPICAL PATCH TD SCH (10:28)
[2019-08-27] MEDS: PRENATAL VITAMINS W/ FOLIC ACID TABLET (FP) PO SCH (10:28)
[2019-08-27] MEDS: BUDESONIDE/FORMETEROL FUMARATE 80/4.5 mcg INHALER IH SCH ×2 (10:28→21:29)
[2019-08-27] MEDS: MONTELUKAST NA 10 MG TABLET PO SCH (10:28)
[2019-08-27] MEDS: RANITIDINE HCL 150 MG TABLET (FP) PO SCH (10:29)
--- NOTE | 2019-08-27 13:58 | PN ---
S CIWA - CIWA Score Nausea/Vomitin-No Nausea/No Vomiting Muscle Tremors: None Anxiety: 2 Agitation: 0-Normal Activity Paroxysmal Sweats: 2 Orientation: 0-Oriented Tacttile Disturbances: 0-None Auditory Disturbances: 0-None Visual Disturbances: 0-None Headache: 0-None Present CIWA-Ar Total Score: 4 S Progress Note (SOAP) Subjective: c/o sweats and anxiety. Objective: 08/27/19 13:55 Vital Signs 08/27/19 08/27/19 07:29 09:53 Temperature 98.2 F 98.2 F Pulse Rate 89 85 Respiratory 18 16 Rate Blood Pressure 115/68 125/73 Lab Results WBC 5.8 K/mm3 (4.0-10.0) 08/24/19 14:50 RBC 4.17 M/mm3 (3.60-5.2) 08/24/19 14:50 Hgb 10.3 GM/dL (10.7-15.3) L 08/24/19 14:50 Hct 32.9 % (32.4-45.2) 08/24/19 14:50 MCV 78.9 fl (80-96) L 08/24/19 14:50 MCHC 31.4 g/dl (32.0-36.0) L 08/24/19 14:50 RDW 18.8 % (11.6-15.6) H 08/24/19 14:50 Plt Count 278 K/MM3 (134-434) 08/24/19 14:50 Sodium 141 mmol/L (136-145) 08/24/19 14:50 Potassium 3.5 mmol/L (3.5-5.1) 08/24/19 14:50 Chloride 106 mmol/L (98-107) 08/24/19 14:50 Carbon Dioxide 28 mmol/L (21-32) 08/24/19 14:50 Anion Gap 7 MMOL/L (8-16) L 08/24/19 14:50 BUN 5.8 mg/dL (7-18) L 08/24/19 14:50 Creatinine 0.5 mg/dL (0.55-1.3) L 08/24/19 14:50 Random Glucose 144 mg/dL (74-106) H 08/24/19 14:50 Calcium 8.8 mg/dL (8.5-10.1) 08/24/19 14:50 Labs noted. Assessment: 08/27/19 13:56 Pt is alert and oriented x3 and in no acute respiratory distress. Full ROM, ambulating in the unit. Withdrawal symptoms. For d/c tomorrow, Pt states she just got her meds from [facility]. Plan: continue detox. D/C in AM.
[2019-08-27] MEDS: THIAMINE HCL 100 MG TABLET (FP) PO SCH (21:30)
[2019-08-27] MEDS: ATORVASTATIN CA 20 MG TABLET (FP) PO SCH (21:30)
[2019-08-28] MEDS ORDERED: chlordiazePOXIDE HCL 10 MG CAPSULE PO ONE (05:00)
[2019-08-28] MEDS: metFORMIN HCL 500 MG TABLET (FP) PO SCH (06:22)
[2019-08-28 12:04] VITALS: BP 135/73; PULSE 73; TEMP 98.6
--- NOTE | 2019-08-28 15:16 | DS ---
[facility] Detox Discharge Summary Admission Date: 08/24/19 Discharge Date: 08/28/19 - History Present History: Alcohol Dependence, Cocaine Dependence Additional Comments: Patient completed detox successfully and discharged safely. Patient instructed to follow up with PCP within 1 week. Pertinent Past History: DM HLD Asthma COPD History of lung cancer (treated, in remission) Nicotine dependence - Physical Exam Results Vital Signs: Vital Signs Temperature 98.6 F 08/28/19 12:03 Pulse Rate 73 08/28/19 12:03 Respiratory Rate 18 08/28/19 12:03 Blood Pressure 135/73 08/28/19 12:03 O2 Sat by Pulse Oximetry (%) Pertinent Admission Physical Exam Findings: Withdrawal sxs Laboratory Tests 08/24/19 08/24/19 08/24/19 14:50 14:50 15:03 WBC 5.8 RBC 4.17 Hgb 10.3 L Hct 32.9 MCV 78.9 L MCH 24.8 L MCHC 31.4 L RDW 18.8 H Plt Count 278 MPV 8.9 Sodium 141 Potassium 3.5 Chloride 106 Carbon Dioxide 28 Anion Gap 7 L BUN 5.8 L Creatinine 0.5 L Est GFR (CKD-EPI)AfAm 122.78 Est GFR (CKD-EPI)NonAf 105.94 POC Glucometer 143 Random Glucose 144 H Calcium 8.8 Total Bilirubin 0.3 AST 11 L ALT 11 L Alkaline Phosphatase 101 Total Protein 7.1 Albumin 3.0 L RPR Titer HIV 1&2 Antibody Screen HIV P24 Antigen 08/24/19 08/25/19 08/25/19 16:26 06:56 08:00 WBC RBC Hgb Hct MCV MCH MCHC RDW Plt Count MPV Sodium Potassium Chloride Carbon Dioxide Anion Gap BUN Creatinine Est GFR (CKD-EPI)AfAm Est GFR (CKD-EPI)NonAf POC Glucometer 128 127 Random Glucose Calcium Total Bilirubin AST ALT Alkaline Phosphatase Total Protein Albumin RPR Titer HIV 1&2 Antibody Screen Negative HIV P24 Antigen Negative 08/25/19 08/25/19 08/26/19 08:00 17:00 06:55 WBC RBC Hgb Hct MCV MCH MCHC RDW Plt Count MPV Sodium Potassium Chloride Carbon Dioxide Anion Gap BUN Creatinine Est GFR (CKD-EPI)AfAm Est GFR (CKD-EPI)NonAf POC Glucometer 117 112 Random Glucose Calcium Total Bilirubin AST ALT Alkaline Phosphatase Total Protein Albumin RPR Titer Nonreactive HIV 1&2 Antibody Screen HIV P24 Antigen 08/26/19 08/27/19 08/27/19 16:35 07:09 16:53 WBC RBC Hgb Hct MCV MCH MCHC RDW Plt Count MPV Sodium Potassium Chloride Carbon Dioxide Anion Gap BUN Creatinine Est GFR (CKD-EPI)AfAm Est GFR (CKD-EPI)NonAf POC Glucometer 118 109 116 Random Glucose Calcium Total Bilirubin AST ALT Alkaline Phosphatase Total Protein Albumin RPR Titer HIV 1&2 Antibody Screen HIV P24 Antigen 08/28/19 06:16 WBC RBC Hgb Hct MCV MCH MCHC RDW Plt Count MPV Sodium Potassium Chloride Carbon Dioxide Anion Gap BUN Creatinine Est GFR (CKD-EPI)AfAm Est GFR (CKD-EPI)NonAf POC Glucometer 105 Random Glucose Calcium Total Bilirubin AST ALT Alkaline Phosphatase Total Protein Albumin RPR Titer HIV 1&2 Antibody Screen HIV P24 Antigen Labs reviewed - Treatment Hospital Course: Detox Protocol Followed, Detoxed Safely, Responded well, Discharged Condition Good - Medication Discharge Medications: Ambulatory Orders Mirtazapine 15 mg PO HS 10/05/18 Budesonide/Formeterol Fumarate [SYMBICORT 80/4.5mcg -] 1 inh PO BID #1 inhaler 10/20/18 Bupropion HCl [Wellbutrin Sr] 150 mg PO BID #60 tab.sr.12h 10/20/18 Metformin HCl [Glucophage] 500 mg PO BID #30 tablet 10/20/18 Tiotropium [place] [Spiriva Respimat] 4 gm IH DAILY #1 inhaler 10/20/18 Albuterol Sulfate Inhaler - [Ventolin HFA Inhaler -] 2 inh PO Q4H PRN 08/24/19 Atorvastatin Ca [Lipitor] 20 mg PO HS 08/24/19 Famotidine [Pepcid] 40 mg PO DAILY 08/24/19 Mometasone/Formoterol [Dulera 100 Mcg/5 Mcg Inhaler] 1 inh IH BID 08/24/19 Montelukast Sodium [Singulair] 10 mg PO DAILY 08/24/19 Oxycodone HCl 30 mg PO Q4H 08/24/19 Risperidone 1 mg PO BID 08/24/19 - Diagnosis (1) HLD (hyperlipidemia) Status: Chronic (2) COPD (chronic obstructive pulmonary disease) Status: Chronic (3) Depression Status: Chronic (4) Nicotine dependence Status: Chronic (5) Alcohol dependence with uncomplicated withdrawal Status: Acute (6) Asthma Status: Chronic (7) Cocaine dependence Status: Chronic Qualifiers: (8) DM2 (diabetes mellitus, type 2) Status: Chronic (9) History of lung cancer Status: Chronic - AMA Did Patient Leave Against Medical Advice: No (Follow up with PCP within 1 week)
== END 2019-08-28 09:37 | disposition home or self-care (01) | DRG 774 ==
LOC: YASAS 11:56 → Y6N 15:06
PROVIDERS: ADMIT Surgery; ATTEND Surgery
PROC: HZ2ZZZZ Detoxification Services for Substance Abuse Treatment (ICD-10-PCS; principal; 2019-08-24)
DX: F10.230 Alcohol dependence with withdrawal, uncomplicated (principal); F14.20 Cocaine dependence, uncomplicated; F17.210 Nicotine dependence, cigarettes, uncomplicated; F31.9 Bipolar disorder, unspecified; F19.24 Other psychoactive substance dependence with psychoactive substance-induced mood disorder; E78.5 Hyperlipidemia, unspecified; E11.9 Type 2 diabetes mellitus without complications; J44.9 Chronic obstructive pulmonary disease, unspecified; Z85.118 Personal history of other malignant neoplasm of bronchus and lung; Z90.2 Acquired absence of lung [part of]; Z79.84 Long term (current) use of oral hypoglycemic drugs; Z91.5 Personal history of self-harm
CPT/HCPCS: 36415; 80053; 82962; 85027; 86593; 87389

== ENCOUNTER 2019-10-04 19:06 | Inpatient (IN) | payer OTHER ==
[2019-10-05 00:02] VITALS: BMI 23.8
--- NOTE | 2019-10-05 01:59 | HP ---
CIWA Score Nausea/Vomitin-Mild Nausea/No Vomiting Muscle Tremors: 4-Moderate,w/Arms Extend Anxiety: 3 Agitation: 3 Paroxysmal Sweats: 2 Orientation: 1-Uncertain about Date Tacttile Disturbances: 0-None Auditory Disturbances: 0-None Visual Disturbances: 0-None Headache: 2-Mild CIWA-Ar Total Score: 16 - Admission Criteria OASAS Guidelines: Admission for Medically Managed Detox: Requires at least one of the followin. CIWA greater than 12 2. Seizures within the past 24 hours 3. Delirium tremens within the past 24 hours 4. Hallucinations within the past 24 hours 5. Acute intervention needed for co occurring medical disorder 6. Acute intervention needed for co occurring psychiatric disorder 7. Severe withdrawal that cannot be handled at a lower level of care (continued vomiting, continued diarrhea, abnormal vital signs) requiring intravenous medication and/or fluids 8. Admitting History and Physical - Smoking History Smoking history: Current every day smoker Have you smoked in the past 12 months: Yes Aproximately how many cigarettes per day: 20 - Alcohol/Substance Use Hx Alcohol Use: Yes Admission ROS [facility] - [facility] Chief Complaint: Seeking admission to detox from alcohol Allergies/Adverse Reactions: Allergies Allergy/AdvReac Type Severity Reaction Status Date / Time No Known Allergies Allergy Verified 10/04/19 23:46 History of Present Illness: 58 years old female with a long history of alcohol is seeking admission to detox. Patient has been in detox multiple time and reports 11 months on sobriety. Exam Limitations: No Limitations - Ebola screening Have you traveled outside of the country in the last 21 days: No (N) Have you had contact with anyone from an Ebola affected area: No Do you have a fever: No - Review of Systems Constitutional: Chills, Malaise, Night Sweats, Changes in sleep EENT: reports: No Symptoms Reported, Sinus Pressure Respiratory: reports: No Symptoms reported Cardiac: reports: No Symptoms Reported GI: reports: Poor Fluid Intake, Vomiting, Abdominal cramping : reports: No Symptoms Reported Musculoskeletal: reports: No Symptoms Reported Integumentary: reports: Dryness, Flushing Neuro: reports: Tremors Endocrine: reports: No Symptoms Reported Hematology: reports: No Symptoms Reported Psychiatric: reports: No Sypmtoms Reported, Orientated x3, Anxious Other Systems: Reviewed and Negative Patient History - Patient Medical History Hx Anemia: No Hx Asthma: Yes Hx Chronic Obstructive Pulmonary Disease (COPD): Yes Hx Cancer: Yes (lung CA s/p lobectomy) Hx Cardiac Disorders: No Hx Hypertension: No Hx Hypercholesterolemia: Yes Hx Pacemaker: No HX Cerebrovascular Accident: No Hx Seizures: No Hx Dementia: No Hx Diabetes: Yes (TYPE 2 ) Hx Gastrointestinal Disorders: No Hx Liver Disease: No Hx Genitourinary Disorders: No Hx Sexually Transmitted Disorders: No Hx Renal Disease (ESRD): No Hx Thyroid Disease: No Hx Human Immunodeficiency Virus (HIV): No (last 08/17 negative) Hx Hepatitis C: No Hx Depression: Yes Hx Suicide Attempt: No Hx Bipolar Disorder: Yes Hx Schizophrenia: No - Patient Surgical History Past Surgical History: Yes Hx Lung Surgery: Yes (lobectomy August 2017) Hx Orthopedic Surgery: Yes (R knee sx for fx 15 yrs ago.And left knee sx 20yrs ago) - PPD History Previous Implant?: Yes Documented Results: Negative w/proof Implanted On Prior R Admission?: Yes Date: 08/26/19 Results: 0mm PPD to be Administered?: No - Reproductive History Patient is a Female of Child Bearing Age (11 -55 yrs old): Yes LMP comment: 12 YEARS AGO - Smoking Cessation Smoking history: Current every day smoker Have you smoked in the past 12 months: Yes Aproximately how many cigarettes per day: 20 Hx Chewing Tobacco Use: No Initiated information on smoking cessation: Yes 'Breaking Loose' booklet given: 10/05/19 - Substance & Tx. History Hx Alcohol Use: Yes Hx Substance Use: Yes Substance Use Type: Alcohol, Cocaine Hx Substance Use Treatment: Yes ([facility]) - Substances abused Cocaine Substance route: Smoking Frequency: Daily Amount used: $200 Age of first use: 27 Date of last use: 10/02/19 Alcohol Substance route: Oral Frequency: Daily Amount used: 1 [place] Age of first use: 19 Date of last use: 10/02/19 Admission Physical Exam BHS - Vital Signs Vital Signs: Vital Signs - 24 hr 10/04/19 23:43 Temperature 97.9 F Pulse Rate 88 Respiratory 16 Rate Blood Pressure 114/77 - Physical General Appearance: Yes: Moderate Distress, Tremorous, Sweating, Anxious HEENTM: Yes: Nasal Congestion Respiratory: Yes: Lungs Clear, Normal Breath Sounds, No Respiratory Distress Neck: Yes: Supple Breast: Yes: Breast Exam Deferred Cardiology: Yes: Regular Rhythm, Regular Rate Abdominal: Yes: Normal Bowel Sounds, Soft Genitourinary: Yes: Within Normal Limits Back: Yes: Normal Inspection Musculoskeletal: Yes: Back pain, Muscle Pain Extremities: Yes: Tremors Neurological: Yes: Within Normal Limits, Alert, Normal Mood/Affect Integumentary: Yes: Warm Lymphatic: Yes: Within Normal Limits - Diagnostic (1) History of lung cancer Current Visit: No Status: Chronic (2) Alcohol dependence with uncomplicated withdrawal Current Visit: Yes Status: Acute (3) Asthma Current Visit: No Status: Chronic Qualifiers: Asthma severity: mild Asthma persistence: intermittent (4) COPD (chronic obstructive pulmonary disease) Current Visit: Yes Status: Chronic Qualifiers: Chronic bronchitis type: unspecified (5) Cocaine dependence Current Visit: Yes Status: Chronic Qualifiers: Substance use status: uncomplicated Qualified Code(s): F14.20 - Cocaine dependence, uncomplicated (6) DM2 (diabetes mellitus, type 2) Current Visit: Yes Status: Chronic (7) Depression Current Visit: Yes Status: Chronic Qualifiers: Depression Type: unspecified Qualified Code(s): F32.9 - Major depressive disorder, single episode, unspecified (8) HLD (hyperlipidemia) Current Visit: Yes Status: Chronic Qualifiers: Hyperlipidemia type: unspecified Qualified Code(s): E78.5 - Hyperlipidemia , unspecified (9) Nicotine dependence Current Visit: Yes Status: Chronic Qualifiers: Nicotine product type: cigarettes Substance use status: uncomplicated Qualified Code(s): F17.210 - Nicotine dependence, cigarettes, uncomplicated Cleared for Admission S - Detox or Rehab [facility] Level of Care: Medically Managed Detox Regimen/Protocol: Librium Claeared for Rehab Admission: No Breathalyzer - Breathalyzer Breathalyzer: 0 Urine Drug Screen - Test Device Lot number: [id number] Expiration date: 04/29/21 - Control Is test valid?: Yes - Results Drug screen NEGATIVE: Yes Urine drug screen results: [facility]-Cocaine Inpatient Rehab Admission - Rehab Decision to Admit Inpatient rehab admission?: No
[2019-10-05] MEDS ORDERED: MENTHOL/PHENOL 1 EACH UD MM PRN (02:17)
[2019-10-05] MEDS ORDERED: hydrOXYzine PAMOATE 25 MG CAPSULE (FP) PO PRN (02:17)
[2019-10-05] MEDS ORDERED: ACETAMINOPHEN 325 MG TABLET (FP) PO PRN ×2 (02:17)
[2019-10-05] MEDS ORDERED: MAGNESIUM HYDROX 2400MG/30ML ORAL SUSPENSION 30 ML CUP PO PRN (02:17)
[2019-10-05] MEDS ORDERED: chlordiazePOXIDE HCL 25 MG CAPSULE PO PRN (02:17)
[2019-10-05] MEDS ORDERED: MAG HYDROX/AL HYDROX/SIMETH 30 ML UNIT-DOSE CUP PO PRN (02:17)
[2019-10-05] MEDS ORDERED: MAGNESIUM CITRATE 300 ML BOTTLE PO PRN (02:17)
[2019-10-05] MEDS ORDERED: MELATONIN 5 MG TABLETS PO PRN (02:17)
[2019-10-05] MEDS ORDERED: NICOTINE POLACRILEX 2 MG GUM BUC PRN (02:17)
[2019-10-05] MEDS ORDERED: BISMUTH SUBSALICYLATE 524 MG/30 ML UD PO PRN (02:17)
[2019-10-05] MEDS ORDERED: IBUPROFEN 400 MG TABLET (FP) PO PRN (02:17)
[2019-10-05] MEDS ORDERED: ALBUTEROL SO4 8 GM HFA INHALER IH PRN (02:19)
[2019-10-05] MEDS: chlordiazePOXIDE HCL 25 MG CAPSULE PO SCH ×4 (07:23→22:34)
[2019-10-05] MEDS: metFORMIN HCL 500 MG TABLET (FP) PO SCH ×2 (07:40→17:09)
[2019-10-05] MEDS ORDERED: PATIENT'S OWN MEDICATION (NON-FORMULARY) (Mometasone/Formoterol [Dulera 100 Mcg/5 Mcg Inha IH SCH (10:00)
[2019-10-05] MEDS ORDERED: PATIENT'S OWN MEDICATION (NON-FORMULARY) (Famotidine [Pepcid] 40 MG) PO SCH (10:00)
[2019-10-05] MEDS: MONTELUKAST NA 10 MG TABLET PO SCH (10:39)
[2019-10-05] MEDS: PRENATAL VITAMINS W/ FOLIC ACID TABLET (FP) PO SCH (10:39)
[2019-10-05] MEDS: BUDESONIDE/FORMETEROL FUMARATE 80/4.5 mcg INHALER IH SCH ×2 (10:39→22:37)
[2019-10-05] MEDS: NICOTINE 14 MG/24 HOURS TOPICAL PATCH TD SCH (10:39)
[2019-10-05] MEDS: FAMOTIDINE 40 MG TABLET PO SCH (10:56)
--- NOTE | 2019-10-05 11:29 | CONSULT ---
[facility] Psychiatric Consult - Data Date of interview: 10/05/19 (Self-referred) Admission source: Self-referred Identifying data: Ms Machado is a 58 years old single Black female, unemployed receiving SSI, homeless seeking detox treatment for alcohol and cocaine Substance Abuse History: Reports history of alcohol and cocaine use. Refer to addiction counselor's summary for further information Medical History: Significant for bronchial asthma/COPD, dyslipdemia, type 2 diabetes mellitus, history of surgeries(lobectomy for lung cancer in August 2017, fracure right knee 15 years ago, fracture left knee 20 years ago). Smokes cigarettes 1 ppd Psychiatric History: Patient was moderately sedated, irritable and consequenly a poor informant. She acknowledges that her first psychiatric contact occured at age 16 when she was admitted to [facility] due to severe depression, suicidal thoughts. She was diagnosed with MDD which was later revised to Bipolar disorder and was started on psychotropic medications . Reportedly she has had multiple psychiatric hospitalizations at [place] and most recently in August 2018 at [facility] for depression and suicidal ideations. Reports that she has not seen a psychiatrist for a long time as well as being off medications for a long time. She used to receive outpatient psychiatric treatment at [facility] and prescribed Wellbutrin, Remeron, Risperdal. Reportedly she has one previous suicidal attempt in 2010 via overdose. At present, denies experiencing psychotic, manic or depressive symptoms, S/H ideations. However, reports feeling anxious, irritable and sleeping poorly Physical/Sexual Abuse/Trauma History: This topic was not addressed due patient level of cooperation Mental Status Exam - Mental Status Exam Alert and Oriented to: Time, Place, Person Cognitive Function: Fair Patient Appearance: Well Groomed Mood: Anxious, Irritable Affect: Appropriate Patient Behavior: Sedated (but able to answer questions) Speech Pattern: Clear Voice Loudness: Normal Thought Process: Intact, Goal Oriented Thought Disorder: Not Present Hallucinations: Denies Suicidal Ideation: Denies Homicidal Ideation: Denies Insight/Judgement: Poor Sleep: Poorly Appetite: Fair Muscle strength/Tone: Normal Gait/Station: Normal Psychiatric Findings - Problem List ([place] 1, 2,3) (1) Bipolar disorder Current Visit: No Status: Chronic (2) Substance induced mood disorder Current Visit: No Status: Acute (3) Substance-induced sleep disorder Current Visit: Yes Status: Acute (4) Alcohol dependence with uncomplicated withdrawal Current Visit: Yes Status: Acute (5) Cocaine dependence Current Visit: Yes Status: Acute Qualifiers: Substance use status: uncomplicated Qualified Code(s): F14.20 - Cocaine dependence, uncomplicated (6) Nicotine dependence Current Visit: Yes Status: Chronic Qualifiers: Nicotine product type: cigarettes Substance use status: uncomplicated Qualified Code(s): F17.210 - Nicotine dependence, cigarettes, uncomplicated (7) Asthma Current Visit: No Status: Chronic Qualifiers: Asthma severity: mild Asthma persistence: intermittent (8) COPD (chronic obstructive pulmonary disease) Current Visit: Yes Status: Chronic Qualifiers: Chronic bronchitis type: unspecified (9) DM2 (diabetes mellitus, type 2) Current Visit: Yes Status: Chronic (10) HLD (hyperlipidemia) Current Visit: Yes Status: Chronic Qualifiers: Hyperlipidemia type: unspecified Qualified Code(s): E78.5 - Hyperlipidemia , unspecified (11) GERD (gastroesophageal reflux disease) Current Visit: Yes Status: Chronic (12) History of right knee surgery Current Visit: No Status: Resolved - Initial Treatment Plan Initial Treatment Plan: Continue inpatient detoxification
--- NOTE | 2019-10-05 14:53 | PN ---
S CIWA - CIWA Score Nausea/Vomitin-Mild Nausea/No Vomiting Muscle Tremors: 2 Anxiety: 2 Agitation: 2 Paroxysmal Sweats: No Perspiration Orientation: 0-Oriented Tacttile Disturbances: 1-Very Mild Itch/Numbness Auditory Disturbances: 0-None Visual Disturbances: 0-None Headache: 1-Very Mild CIWA-Ar Total Score: 9 BHS Progress Note (SOAP) Subjective: alert,irritable,anxious,interrupted sleep,tremor Objective: 10/05/19 14:52 Vital Signs Temperature 97.9 F 10/05/19 13:30 Pulse Rate 74 10/05/19 13:30 Respiratory Rate 18 10/05/19 13:30 Blood Pressure 106/59 L 10/05/19 13:30 O2 Sat by Pulse Oximetry (%) Laboratory Last Values POC Glucometer 130 UNITS (80-120) 10/05/19 07:39 labs pending Assessment: 10/05/19 14:52 withdrawal symptom Plan: continue detox librium regimen
[2019-10-05] MEDS: ATORVASTATIN CA 20 MG TABLET (FP) PO SCH (22:37)
[2019-10-05] MEDS: THIAMINE HCL 100 MG TABLET (FP) PO SCH (22:37)
[2019-10-06] MEDS: metFORMIN HCL 500 MG TABLET (FP) PO SCH ×2 (06:48→17:39)
[2019-10-06] MEDS: chlordiazePOXIDE HCL 25 MG CAPSULE PO SCH ×4 (06:48→22:51)
[2019-10-06 09:42] LABS: HEMATOCRIT 34.4 % (32.4-45.2); MCH 26.2 pg (25.7-33.7); MEAN CELL VOLUME 82.1 fl (80-96); PLATELET COUNT 241 K/MM3 (134-434); RBC 4.19 M/mm3 (3.60-5.2); RDW 19.3 % (11.6-15.6); WHITE BLOOD COUNT 3.7 K/mm3 (4.0-10.0)
[2019-10-06 10:11] LABS: ALBUMIN 3.1 g/dl (3.4-5.0); BILIRUBIN,TOTAL 0.2 mg/dL (0.2-1); CALCIUM 9.2 mg/dL (8.5-10.1); CREATININE 0.7 mg/dL (0.55-1.3); POTASSIUM 4.3 mmol/L (3.5-5.1); TOT PROT 6.8 g/dl (6.4-8.2)
[2019-10-06] MEDS: PRENATAL VITAMINS W/ FOLIC ACID TABLET (FP) PO SCH (10:12)
[2019-10-06] MEDS: BUDESONIDE/FORMETEROL FUMARATE 80/4.5 mcg INHALER IH SCH ×2 (10:12→22:49)
[2019-10-06] MEDS: MONTELUKAST NA 10 MG TABLET PO SCH (10:12)
[2019-10-06] MEDS: NICOTINE 14 MG/24 HOURS TOPICAL PATCH TD SCH (10:13)
[2019-10-06] MEDS: FAMOTIDINE 40 MG TABLET PO SCH (10:13)
--- NOTE | 2019-10-06 11:50 | PN ---
S CIWA - CIWA Score Nausea/Vomitin-No Nausea/No Vomiting Muscle Tremors: 2 Anxiety: 2 Agitation: 2 Paroxysmal Sweats: 2 Orientation: 0-Oriented Tacttile Disturbances: 0-None Auditory Disturbances: 0-None Visual Disturbances: 0-None Headache: 0-None Present CIWA-Ar Total Score: 8 BHS Progress Note (SOAP) Subjective: body aches sweats shakes irritable i dont need an ekg Objective: 10/06/19 11:48 Vital Signs Temperature 98.1 F 10/06/19 10:29 Pulse Rate 90 10/06/19 10:29 Respiratory Rate 18 10/06/19 10:29 Blood Pressure 132/55 L 10/06/19 10:29 O2 Sat by Pulse Oximetry (%) Laboratory Tests 10/05/19 10/05/19 10/06/19 07:39 16:26 08:00 WBC 3.7 L RBC 4.19 Hgb 11.0 Hct 34.4 MCV 82.1 MCH 26.2 MCHC 32.0 RDW 19.3 H Plt Count 241 MPV 9.0 Sodium Potassium Chloride Carbon Dioxide Anion Gap BUN Creatinine Est GFR (CKD-EPI)AfAm Est GFR (CKD-EPI)NonAf POC Glucometer 130 108 Random Glucose Calcium Total Bilirubin AST ALT Alkaline Phosphatase Total Protein Albumin 10/06/19 08:00 WBC RBC Hgb Hct MCV MCH MCHC RDW Plt Count MPV Sodium 141 Potassium 4.3 Chloride 109 H Carbon Dioxide 26 Anion Gap 6 L BUN 12.0 Creatinine 0.7 Est GFR (CKD-EPI)AfAm 109.91 Est GFR (CKD-EPI)NonAf 94.84 POC Glucometer Random Glucose 106 Calcium 9.2 Total Bilirubin 0.2 AST 13 L ALT 11 L Alkaline Phosphatase 86 Total Protein 6.8 Albumin 3.1 L labs noted aaox3 ambulating no acute distress Assessment: 10/06/19 11:48 withdrawal sx Plan: continue detox increase fluids d/c ekg order
[2019-10-06] MEDS: ATORVASTATIN CA 20 MG TABLET (FP) PO SCH (22:50)
[2019-10-06] MEDS: THIAMINE HCL 100 MG TABLET (FP) PO SCH (22:50)
[2019-10-07] MEDS ORDERED: chlordiazePOXIDE HCL 10 MG CAPSULE PO PRN
[2019-10-07] MEDS: chlordiazePOXIDE HCL 10 MG CAPSULE PO SCH ×4 (06:02→22:57)
[2019-10-07] MEDS: metFORMIN HCL 500 MG TABLET (FP) PO SCH ×2 (06:02→17:33)
[2019-10-07] MEDS: NICOTINE 14 MG/24 HOURS TOPICAL PATCH TD SCH (10:43)
[2019-10-07] MEDS: FAMOTIDINE 40 MG TABLET PO SCH (10:43)
[2019-10-07] MEDS: BUDESONIDE/FORMETEROL FUMARATE 80/4.5 mcg INHALER IH SCH ×2 (10:44→22:57)
[2019-10-07] MEDS: PRENATAL VITAMINS W/ FOLIC ACID TABLET (FP) PO SCH (10:44)
[2019-10-07] MEDS: MONTELUKAST NA 10 MG TABLET PO SCH (10:44)
[2019-10-07] MEDS ORDERED: ONDANSETRON *ODT* 4 MG TABLET SL PRN (13:58)
--- NOTE | 2019-10-07 13:58 | PN ---
S CIWA - CIWA Score Nausea/Vomitin-Mild Nausea/No Vomiting Muscle Tremors: 2 Anxiety: 1-Mildly Anxious Agitation: 1-Slight > Activity Paroxysmal Sweats: 1-Minimal Palms Moist Orientation: 0-Oriented Tacttile Disturbances: 0-None Auditory Disturbances: 0-None Visual Disturbances: 0-None Headache: 0-None Present CIWA-Ar Total Score: 6 BHS Progress Note (SOAP) Subjective: nausea sweats irritable Objective: 10/07/19 13:58 Vital Signs Temperature 98.2 F 10/07/19 09:56 Pulse Rate 94 H 10/07/19 09:56 Respiratory Rate 18 10/07/19 09:56 Blood Pressure 109/64 10/07/19 09:56 O2 Sat by Pulse Oximetry (%) Laboratory Tests 10/05/19 10/05/19 10/06/19 07:39 16:26 08:00 WBC 3.7 L RBC 4.19 Hgb 11.0 Hct 34.4 MCV 82.1 MCH 26.2 MCHC 32.0 RDW 19.3 H Plt Count 241 MPV 9.0 Sodium Potassium Chloride Carbon Dioxide Anion Gap BUN Creatinine Est GFR (CKD-EPI)AfAm Est GFR (CKD-EPI)NonAf POC Glucometer 130 108 Random Glucose Calcium Total Bilirubin AST ALT Alkaline Phosphatase Total Protein Albumin RPR Titer 10/06/19 10/06/19 10/06/19 08:00 08:00 16:40 WBC RBC Hgb Hct MCV MCH MCHC RDW Plt Count MPV Sodium 141 Potassium 4.3 Chloride 109 H Carbon Dioxide 26 Anion Gap 6 L BUN 12.0 Creatinine 0.7 Est GFR (CKD-EPI)AfAm 109.91 Est GFR (CKD-EPI)NonAf 94.84 POC Glucometer 133 Random Glucose 106 Calcium 9.2 Total Bilirubin 0.2 AST 13 L ALT 11 L Alkaline Phosphatase 86 Total Protein 6.8 Albumin 3.1 L RPR Titer Nonreactive 10/07/19 06:11 WBC RBC Hgb Hct MCV MCH MCHC RDW Plt Count MPV Sodium Potassium Chloride Carbon Dioxide Anion Gap BUN Creatinine Est GFR (CKD-EPI)AfAm Est GFR (CKD-EPI)NonAf POC Glucometer 154 Random Glucose Calcium Total Bilirubin AST ALT Alkaline Phosphatase Total Protein Albumin RPR Titer labs noted aaox3 ambulating no acute distress Assessment: 10/07/19 13:58 withdrawals Plan: continue detox amelia farah prn
--- NOTE | 2019-10-07 18:13 | PN ---
Progress Note (short form) - Note Progress Note: Received call from nursing staff, patient fell while in the bathroom. At baseline, patient says she usually ambulates with a cane at home. She was not using her cane while going to the bathroom. Pt fell but did not fall to the floor; fell onto handrail in the bathroom onto her R side. Did not hit her head. No LOC. PE: VS stable -General: AOx3. Lying in bed. No acute distress. Mild discomfort 2/2 fall on R side -MSK: R sided midaxillary tenderness to palpation. Full ROM all extr. Able to lift b/l arms above 90 degrees. No paraspinal tenderness. Full ROM of hips. -Neuro: CN2-12 intact. Sensation intact. A/P: -Implementing fall precautions -Stressed importance of ambulating using her cane. Cane present at bedside -C/w librium detox
[2019-10-07] MEDS: METHOCARBAMOL 500 MG TABLET PO PRN (18:20)
[2019-10-07] MEDS: THIAMINE HCL 100 MG TABLET (FP) PO SCH (22:57)
[2019-10-07] MEDS: ATORVASTATIN CA 20 MG TABLET (FP) PO SCH (22:57)
[2019-10-08] MEDS: chlordiazePOXIDE HCL 10 MG CAPSULE PO SCH ×2 (06:15→18:00)
[2019-10-08] MEDS: metFORMIN HCL 500 MG TABLET (FP) PO SCH ×2 (06:15→18:00)
[2019-10-08] MEDS: BUDESONIDE/FORMETEROL FUMARATE 80/4.5 mcg INHALER IH SCH ×2 (10:53→23:02)
[2019-10-08] MEDS: MONTELUKAST NA 10 MG TABLET PO SCH (10:53)
[2019-10-08] MEDS: NICOTINE 14 MG/24 HOURS TOPICAL PATCH TD SCH (10:53)
[2019-10-08] MEDS: PRENATAL VITAMINS W/ FOLIC ACID TABLET (FP) PO SCH (10:53)
[2019-10-08] MEDS: FAMOTIDINE 40 MG TABLET PO SCH (10:53)
[2019-10-08] MEDS: METHOCARBAMOL 500 MG TABLET PO PRN (13:03)
--- NOTE | 2019-10-08 13:31 | PN ---
[facility] CIWA - CIWA Score Nausea/Vomitin-No Nausea/No Vomiting Muscle Tremors: 1-None Visible, but [place] Anxiety: 1-Mildly Anxious Agitation: 0-Normal Activity Paroxysmal Sweats: No Perspiration Orientation: 0-Oriented Tacttile Disturbances: 0-None Auditory Disturbances: 0-None Visual Disturbances: 0-None Headache: 0-None Present CIWA-Ar Total Score: 2 BHS Progress Note (SOAP) Subjective: tired mild anxiety Objective: 10/08/19 13:29 Vital Signs Temperature 98.4 F 10/08/19 09:56 Pulse Rate 18 L 10/08/19 09:56 Respiratory Rate 94 H 10/08/19 09:56 Blood Pressure 145/88 10/08/19 09:56 O2 Sat by Pulse Oximetry (%) aaox3 lying in bed no acute distress Assessment: 10/08/19 13:30 mild withdrawals Plan: pt will complete today dose tomorrow last librium taper d/c. increase fluids d/c in am
[2019-10-08] MEDS: ATORVASTATIN CA 20 MG TABLET (FP) PO SCH (23:02)
[2019-10-08] MEDS: THIAMINE HCL 100 MG TABLET (FP) PO SCH (23:02)
[2019-10-09] MEDS ORDERED: chlordiazePOXIDE HCL 10 MG CAPSULE PO ONE (05:00)
[2019-10-09] MEDS: metFORMIN HCL 500 MG TABLET (FP) PO SCH (06:55)
[2019-10-09 09:53] VITALS: BP 112/71; PULSE 106; TEMP 97.5
[2019-10-09] MEDS: BUDESONIDE/FORMETEROL FUMARATE 80/4.5 mcg INHALER IH SCH (10:38)
[2019-10-09] MEDS: PRENATAL VITAMINS W/ FOLIC ACID TABLET (FP) PO SCH (10:39)
[2019-10-09] MEDS: FAMOTIDINE 40 MG TABLET PO SCH (10:39)
[2019-10-09] MEDS: NICOTINE 14 MG/24 HOURS TOPICAL PATCH TD SCH (10:39)
[2019-10-09] MEDS: MONTELUKAST NA 10 MG TABLET PO SCH (10:40)
--- NOTE | 2019-10-09 18:22 | DS ---
[facility] Detox Discharge Summary Admission Date: 10/05/19 Discharge Date: 10/09/19 - History Present History: Alcohol Dependence, Cocaine Dependence Additional Comments: Pt completed detox successfully and discharged safely [facility]. Pt in stable condition. Pertinent Past History: Nicotine dependence Asthma DMT2 History of lung cancer, s/p lobectomy - Physical Exam Results Vital Signs: Vital Signs Temperature 97.5 F L 10/09/19 09:52 Pulse Rate 106 H 10/09/19 09:52 Respiratory Rate 20 10/09/19 09:52 Blood Pressure 112/71 10/09/19 09:52 O2 Sat by Pulse Oximetry (%) Pertinent Admission Physical Exam Findings: Withdrawal sxs Laboratory Tests 10/05/19 10/05/19 10/06/19 07:39 16:26 08:00 WBC 3.7 L RBC 4.19 Hgb 11.0 Hct 34.4 MCV 82.1 MCH 26.2 MCHC 32.0 RDW 19.3 H Plt Count 241 MPV 9.0 Sodium Potassium Chloride Carbon Dioxide Anion Gap BUN Creatinine Est GFR (CKD-EPI)AfAm Est GFR (CKD-EPI)NonAf POC Glucometer 130 108 Random Glucose Calcium Total Bilirubin AST ALT Alkaline Phosphatase Total Protein Albumin RPR Titer 10/06/19 10/06/19 10/06/19 08:00 08:00 16:40 WBC RBC Hgb Hct MCV MCH MCHC RDW Plt Count MPV Sodium 141 Potassium 4.3 Chloride 109 H Carbon Dioxide 26 Anion Gap 6 L BUN 12.0 Creatinine 0.7 Est GFR (CKD-EPI)AfAm 109.91 Est GFR (CKD-EPI)NonAf 94.84 POC Glucometer 133 Random Glucose 106 Calcium 9.2 Total Bilirubin 0.2 AST 13 L ALT 11 L Alkaline Phosphatase 86 Total Protein 6.8 Albumin 3.1 L RPR Titer Nonreactive 10/07/19 10/07/19 10/08/19 06:11 16:32 06:13 WBC RBC Hgb Hct MCV MCH MCHC RDW Plt Count MPV Sodium Potassium Chloride Carbon Dioxide Anion Gap BUN Creatinine Est GFR (CKD-EPI)AfAm Est GFR (CKD-EPI)NonAf POC Glucometer 154 94 110 Random Glucose Calcium Total Bilirubin AST ALT Alkaline Phosphatase Total Protein Albumin RPR Titer 10/08/19 10/09/19 16:36 06:53 WBC RBC Hgb Hct MCV MCH MCHC RDW Plt Count MPV Sodium Potassium Chloride Carbon Dioxide Anion Gap BUN Creatinine Est GFR (CKD-EPI)AfAm Est GFR (CKD-EPI)NonAf POC Glucometer 154 122 Random Glucose Calcium Total Bilirubin AST ALT Alkaline Phosphatase Total Protein Albumin RPR Titer Labs reviewed - Treatment Hospital Course: Detox Protocol Followed, Detoxed Safely, Responded well, Discharged Condition Good, Rehab Referral Accepted - Medication Discharge Medications: Ambulatory Orders Mirtazapine 30 mg PO HS 10/05/18 Budesonide/Formeterol Fumarate [SYMBICORT 80/4.5mcg -] 1 inh PO BID #1 inhaler 10/20/18 Metformin HCl [Glucophage] 500 mg PO BID #30 tablet 10/20/18 Albuterol Sulfate Inhaler - [Ventolin HFA Inhaler -] 2 inh PO Q4H PRN 08/24/19 Atorvastatin Ca [Lipitor] 20 mg PO HS 08/24/19 Famotidine [Pepcid] 40 mg PO DAILY 08/24/19 Mometasone/Formoterol [Dulera 100 Mcg/5 Mcg Inhaler] 1 inh IH BID 08/24/19 Montelukast Sodium [Singulair] 10 mg PO DAILY 08/24/19 Oxycodone HCl 30 mg PO Q4H 08/24/19 Risperidone 1 mg PO BID 08/24/19 Bupropion HCl [Wellbutrin Sr] 150 mg PO DAILY 10/09/19 - Diagnosis (1) Alcohol dependence with uncomplicated withdrawal Status: Chronic (2) Cocaine dependence Status: Chronic Qualifiers: Substance use status: uncomplicated Qualified Code(s): F14.20 - Cocaine dependence, uncomplicated (3) Asthma Status: Chronic Qualifiers: Asthma severity: mild Asthma persistence: intermittent (4) Bipolar disorder Status: Chronic (5) DM2 (diabetes mellitus, type 2) Status: Chronic (6) History of lung cancer Status: Resolved (7) Nicotine dependence Status: Chronic Qualifiers: Nicotine product type: cigarettes Substance use status: uncomplicated Qualified Code(s): F17.210 - Nicotine dependence, cigarettes, uncomplicated - AMA Did Patient Leave Against Medical Advice: No (Pt accepted admission to [facility])
== END 2019-10-09 12:20 | disposition other institution (70) | DRG 774 ==
LOC: YASAS 19:06 → Y6N 10-05 02:30
PROVIDERS: ADMIT Allergy & Immunology; ATTEND Allergy & Immunology
PROC: HZ2ZZZZ Detoxification Services for Substance Abuse Treatment (ICD-10-PCS; principal; 2019-10-05)
DX: F10.230 Alcohol dependence with withdrawal, uncomplicated (principal); F14.20 Cocaine dependence, uncomplicated; F17.210 Nicotine dependence, cigarettes, uncomplicated; F19.282 Other psychoactive substance dependence with psychoactive substance-induced sleep disorder; F19.24 Other psychoactive substance dependence with psychoactive substance-induced mood disorder; F31.9 Bipolar disorder, unspecified; E11.9 Type 2 diabetes mellitus without complications; Z79.84 Long term (current) use of oral hypoglycemic drugs; J44.9 Chronic obstructive pulmonary disease, unspecified; J45.20 Mild intermittent asthma, uncomplicated; K21.9 Gastro-esophageal reflux disease without esophagitis; E78.5 Hyperlipidemia, unspecified; Z85.118 Personal history of other malignant neoplasm of bronchus and lung; Z90.2 Acquired absence of lung [part of]; Z98.890 Other specified postprocedural states; Z99.89 Dependence on other enabling machines and devices
CPT/HCPCS: 36415; 80053; 82962; 85027; 86593

== ENCOUNTER 2019-10-09 12:22 | Inpatient (IN) | payer OTHER ==
[2019-10-09] MEDS ORDERED: NICOTINE POLACRILEX 2 MG GUM BUC PRN (12:50)
[2019-10-09] MEDS ORDERED: P-EPHED 60MG/TRIPROLIDI 2.5MG TABLET PO PRN (12:50)
[2019-10-09] MEDS ORDERED: guaiFENesin 200 MG/10 ML 10 ML UNIT-DOSE CUPS PO PRN (12:50)
[2019-10-09] MEDS ORDERED: MENTHOL/PHENOL 1 EACH UD MM PRN (12:50)
[2019-10-09] MEDS ORDERED: MAG HYDROX/AL HYDROX/SIMETH 30 ML UNIT-DOSE CUP PO PRN (12:50)
[2019-10-09] MEDS ORDERED: LOPERAMIDE HCL 2 MG CAPSULE PO PRN (12:50)
[2019-10-09] MEDS ORDERED: MAGNESIUM CITRATE 300 ML BOTTLE PO PRN (12:50)
[2019-10-09] MEDS ORDERED: MAGNESIUM HYDROX 2400MG/30ML ORAL SUSPENSION 30 ML CUP PO PRN (12:50)
[2019-10-09] MEDS ORDERED: hydrOXYzine PAMOATE 25 MG CAPSULE (FP) PO PRN (12:50)
--- NOTE | 2019-10-09 12:50 | HP ---
[facility] Rehab Assess/Revision - Admission History Admitted to Rehab from: [facility] Date of Admission to Rehab: 10/09/2019 - Findings Detox History & Physical reviewed: Yes Concur with findings: Yes Inpatient Rehab Admission - Rehab Decision to Admit Inpatient rehab admission?: Yes - Initial Determination Are CD services needed?: No Free of communicable disease: Yes Not in need of hospitalization: No - Rehab Admission Criteria Previous failed treatment: Yes Poor recovery environment: Yes Comorbidities: Yes Lacks judgement: Yes Patient is meeting Inpatient Rehab admission criteria:: Yes
[2019-10-09] MEDS ORDERED: ALBUTEROL SO4 8 GM HFA INHALER IH PRN (12:52)
[2019-10-09] MEDS ORDERED: METHOCARBAMOL 500 MG TABLET PO PRN (12:55)
[2019-10-09] MEDS: INSULIN SLIDING SCALE (NOVOLOG) 1 VIAL SQ SCH (16:51)
[2019-10-09] MEDS: metFORMIN HCL 500 MG TABLET (FP) PO SCH (16:52)
[2019-10-09] MEDS: THIAMINE HCL 100 MG TABLET (FP) PO SCH (21:45)
[2019-10-09] MEDS: ATORVASTATIN CA 20 MG TABLET (FP) PO SCH (21:46)
[2019-10-09] MEDS ORDERED: PT OWN MED DRAWER 7, Y5N ONE (21:47)
[2019-10-09] MEDS: BUDESONIDE/FORMETEROL FUMARATE 80/4.5 mcg INHALER IH SCH (21:48)
[2019-10-09] MEDS ORDERED: MELATONIN 5 MG TABLETS PO PRN (22:00)
[2019-10-10] MEDS: metFORMIN HCL 500 MG TABLET (FP) PO SCH ×2 (06:45→16:56)
[2019-10-10] MEDS: INSULIN SLIDING SCALE (NOVOLOG) 1 VIAL SQ SCH ×2 (06:46→16:56)
[2019-10-10] MEDS ORDERED: PT OWN MED DRAWER 7, Y5N ONE (09:04)
[2019-10-10] MEDS: FAMOTIDINE 20 MG TABLET PO SCH (09:40)
[2019-10-10] MEDS: PRENATAL VITAMINS W/ FOLIC ACID TABLET (FP) PO SCH (09:40)
[2019-10-10] MEDS: BUDESONIDE/FORMETEROL FUMARATE 80/4.5 mcg INHALER IH SCH ×2 (09:40→21:15)
--- NOTE | 2019-10-10 17:13 | CONSULT ---
[facility] Psychiatric Consult - Data Date of interview: 10/10/19 Admission source: Transfer from [address] [place] [address]. Identifying data: Revisit to [facility] for this 58 y/o AA female initially kept at [facility] overnight on 10/04/19, transferred to [facility] (10/05/19) where she completed detoxification treatment (LITA issues : alcohol, nicotine, cocaine ) prior to this admission to [address] for rehabilitative care. Patient is single, no children, homeless (lives at [facility]), unemployed and supported on SSI benefits. Substance Abuse History: Discussed in this session. Details are concordant with current [facility] report as follows : Smoking history: Current every day smoker. Have you smoked in the past 12 months: Yes. Aproximately how many cigarettes per day: 20. Hx Chewing Tobacco Use: No. Initiated information on smoking cessation: Yes. 'Breaking Loose' booklet given: 10/05/19. - Substance & Tx. History. Hx Alcohol Use: Yes. Hx Substance Use: Yes. Substance Use Type: Alcohol, Cocaine. Hx Substance Use Treatment: Yes ([facility]). - Substances abused. Cocaine. Substance route: Smoking. Frequency: Daily. Amount used : $200. Age of first use: 27. Date of last use: 10/02/19. Alcohol. Substance route: Oral. Frequency: Daily. Amount used: 1 P[place]OD[place]. Age of first use: 19. Date of last use: 10/02/19 Medical History: Medical profile is remarkable for COPD, bronchial asthma, dyslipidemia, type 2 diabetes mellitus and history of multiple surgical interventions : right lobectomy (lung cancer) in August 2017 + orthosurgery ( fractures of right knee and left knee) 15 years and 20 years ago (respectively). Psychiatric History: Onset of psychiatric disturbances : age 16 (depression + suicidal ideation). Patient was, at first, diagnosed with MDD (later revised to Bipolar Disorder). Ms Machado endorses a history of multiple psychiatric hospitalizations ([facility] + [facility]). Patient reports total and enduring non-adherence to psychotropic medications and OPD care. Admits to prior maintenance with bupropion + mirtazapine + risperdal. " I was using drugs in the streets. I have not taken those medications for a while." [facility]. She declares an antecedent of one suicide attempt (2013) via overdose with medications. Physical/Sexual Abuse/Trauma History: No information. Patient declines discussion of this domain. Additional Comment: Urine drug screen results: TUCKER-Cocaine. Noted. Mental Status Exam - Mental Status Exam Alert and Oriented to: Time, Place, Person Cognitive Function: Good Patient Appearance: Disheveled (thin habitus) Mood: Withdrawn, Apprehensive, Hopeful Affect: Mood Congruent, Constricted Patient Behavior: Fatigued, Appropriate, Cooperative Speech Pattern: Clear, Appropriate Voice Loudness: Normal Thought Process: Intact, Goal Oriented Thought Disorder: Not Present Hallucinations: Denies Suicidal Ideation: Denies Homicidal Ideation: Denies Insight/Judgement: Fair Sleep: Poorly, Difficulty falling asleep Appetite: Fair, Weight loss Gait/Station: Normal Psychiatric Findings - Problem List ([place] 1, 2,3) (1) Alcohol dependence Current Visit: Yes Status: Chronic (2) Cocaine dependence Current Visit: Yes Status: Chronic Qualifiers: Substance use status: uncomplicated Qualified Code(s): F14.20 - Cocaine dependence, uncomplicated (3) Nicotine dependence Current Visit: Yes Status: Chronic Qualifiers: Nicotine product type: cigarettes Substance use status: uncomplicated Qualified Code(s): F17.210 - Nicotine dependence, cigarettes, uncomplicated (4) Substance induced mood disorder Current Visit: Yes Status: Chronic (5) History of depression Current Visit: Yes Status: Chronic (6) Insomnia Current Visit: Yes Status: Chronic (7) Non-compliance Current Visit: Yes Status: Chronic - Initial Treatment Plan Initial Treatment Plan: Records ([facility]) are revisited. Sleep hygiene. Support. AA meetings. Motivational counseling. MAT services discussed with the patient. Groups. Resumed : mirtazapine 7.5 mg po hs. Side effects/benefits discussed with patient. Ms Machado is in agreement with plan of care. Verbal consent given to MD. Bruce. Psychiatry-Liaison will follow on request.
[2019-10-10] MEDS: THIAMINE HCL 100 MG TABLET (FP) PO SCH (21:13)
[2019-10-10] MEDS: ATORVASTATIN CA 20 MG TABLET (FP) PO SCH (21:13)
[2019-10-10] MEDS: MIRTAZAPINE 15 MG TABLET (FP) PO SCH (21:14)
[2019-10-10] MEDS: MONTELUKAST NA 10 MG TABLET PO SCH (21:14)
[2019-10-11] MEDS: INSULIN SLIDING SCALE (NOVOLOG) 1 VIAL SQ SCH ×2 (07:48→17:35)
[2019-10-11] MEDS: metFORMIN HCL 500 MG TABLET (FP) PO SCH ×2 (07:49→17:34)
--- NOTE | 2019-10-11 09:59 | PN ---
[facility] Progress Note (SOAP) Subjective: Nurse reported that patient reported fall episode while in the bathroom. Pt was seen this morning in bed. Alert o x3. NAD. Pt stated she fell on her right knee and braced herself with her right hand while in the shower common area and not while taking a shower in the stall. Pt denied hitting left leg/hand or head. Pt Denies LOC. Reports slight pain to right knee. Pt used cane for ambulation. Objective: 10/11/19 09:59 Vital Signs - 24 hr 10/11/19 10/11/19 10/11/19 00:30 03:30 07:46 Temperature 98.5 F Pulse Rate 93 H Respiratory 16 16 18 Rate Blood Pressure 111/72 10/11/19 09:25 Temperature 98.5 F Pulse Rate 17 L Respiratory 93 H Rate Blood Pressure 111/72 P/E: General:Alert o x3,NAD Head:Normocephalic, Atruamatic Cardiac:s1 s2, rrr Lungs:cta,saba. Abdomen:soft,+bs,nt,nd Extremities/skin:no pedal edema, no swelling or redness to right knee. Right LE with vertical surgical scar from knee down to martinez area. Left LE no truama noted. Assessment: 10/11/19 10:02 Acute Episode-unwitnessed Hx falls Plan: Fall precaution and protocol #1--Pt had an unwitnessed fall fall precautions Analgesic balm to right knee as directed. NICOLE bandage apply to right knee as needed. D/w pt we will transfer her to [facility] for evaluation and clearance. Pt hesitated and stated "I'm fine, nothing happened to me. Only my knee". However, technical writer explained to patient the hospital protocol and patient is willing to get evaluated and cleared. Report given to Dr. Cervantes at the [facility]. Reminded patient to always use her cane for ambulation.
[2019-10-11] MEDS: BUDESONIDE/FORMETEROL FUMARATE 80/4.5 mcg INHALER IH SCH ×2 (10:34→21:56)
[2019-10-11] MEDS: PRENATAL VITAMINS W/ FOLIC ACID TABLET (FP) PO SCH (10:35)
[2019-10-11] MEDS: FAMOTIDINE 20 MG TABLET PO SCH (10:35)
[2019-10-11] MEDS: ACETAMINOPHEN 325 MG TABLET (FP) PO PRN (10:35)
[2019-10-11] MEDS: METHYL SALICYLATE/MENTHOL OINT 30 GM TUBE TP SCH ×2 (10:55→21:56)
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
[2019-10-11] MEDS: ATORVASTATIN CA 20 MG TABLET (FP) PO SCH (21:54)
[2019-10-11] MEDS: MIRTAZAPINE 15 MG TABLET (FP) PO SCH (21:54)
[2019-10-11] MEDS: MONTELUKAST NA 10 MG TABLET PO SCH (21:55)
[2019-10-11] MEDS: THIAMINE HCL 100 MG TABLET (FP) PO SCH (21:58)
[2019-10-11] MEDS ORDERED: PT OWN MED DRAWER 7, Y5N ONE (21:58)
[2019-10-12] MEDS: INSULIN SLIDING SCALE (NOVOLOG) 1 VIAL SQ SCH ×2 (07:05→16:53)
[2019-10-12] MEDS: metFORMIN HCL 500 MG TABLET (FP) PO SCH ×2 (07:05→16:53)
--- NOTE | 2019-10-12 08:31 | PN ---
[facility] Progress Note Note: Pt seen sitting on his bed and lacing her sneakers. In no acute distress and appears stronger today. S/P fall and returned from the [facility] ER yesterday after evaluation. Alert o x 3. Vital Signs - 24 hr 10/11/19 10/11/19 10/11/19 09:25 09:46 12:51 Temperature 98.5 F 97.3 F L 97.6 F Pulse Rate 17 L 86 82 Respiratory 93 H 18 20 Rate Blood Pressure 111/72 100/66 100/72 10/11/19 10/11/19 10/11/19 17:45 17:46 19:45 Temperature 97.8 F 97.8 F 98 F Pulse Rate 82 82 84 Respiratory 20 20 20 Rate Blood Pressure 130/72 130/72 118/74 10/11/19 10/11/19 10/12/19 19:46 23:46 00:30 Temperature 98 F 97.6 F Pulse Rate 84 82 Respiratory 20 20 16 Rate Blood Pressure 118/74 100/72 10/12/19 10/12/19 10/12/19 03:30 03:40 03:46 Temperature 98.5 F 98.5 F Pulse Rate 80 80 Respiratory 16 18 18 Rate Blood Pressure 106/71 106/71 A/P Post fall Maintain safety. Reminded to use cane for ambulation.
[2019-10-12] MEDS: FAMOTIDINE 20 MG TABLET PO SCH (09:48)
[2019-10-12] MEDS: PRENATAL VITAMINS W/ FOLIC ACID TABLET (FP) PO SCH (09:48)
[2019-10-12] MEDS: BUDESONIDE/FORMETEROL FUMARATE 80/4.5 mcg INHALER IH SCH ×2 (09:48→21:46)
[2019-10-12] MEDS: METHYL SALICYLATE/MENTHOL OINT 30 GM TUBE TP SCH ×2 (09:49→21:47)
[2019-10-12] MEDS: ATORVASTATIN CA 20 MG TABLET (FP) PO SCH (21:46)
[2019-10-12] MEDS: THIAMINE HCL 100 MG TABLET (FP) PO SCH (21:46)
[2019-10-12] MEDS: MONTELUKAST NA 10 MG TABLET PO SCH (21:46)
[2019-10-12] MEDS: MIRTAZAPINE 15 MG TABLET (FP) PO SCH (21:47)
[2019-10-13] MEDS: metFORMIN HCL 500 MG TABLET (FP) PO SCH ×2 (06:57→17:11)
[2019-10-13] MEDS: INSULIN SLIDING SCALE (NOVOLOG) 1 VIAL SQ SCH ×2 (06:57→17:12)
[2019-10-13] MEDS: PRENATAL VITAMINS W/ FOLIC ACID TABLET (FP) PO SCH (09:28)
[2019-10-13] MEDS: FAMOTIDINE 20 MG TABLET PO SCH (09:28)
[2019-10-13] MEDS: METHYL SALICYLATE/MENTHOL OINT 30 GM TUBE TP SCH ×2 (09:28→21:32)
[2019-10-13] MEDS: BUDESONIDE/FORMETEROL FUMARATE 80/4.5 mcg INHALER IH SCH ×2 (09:29→21:32)
--- NOTE | 2019-10-13 14:06 | PREP.REFER ---
HIV PrEP/PEP - PrEP HIV Risk Assessment When was your last HIV test?: 08/25/19 HIV Test offered: Accepted (Patient had HIV test upon admission, it was negative 08/25/19) Are you concerned about any sexual encounters past 6 months?: Yes (Patient reports that she sometimes has sex w/o condom for drugs.) Have you had a STI in the last 6 months?: No Have you shared needles or other equipment?: Yes Are you interested in daily medication to help prevent HIV?: No Recommendation: Consider PrEP referral Comment: Patient refusing PrEP referral at this time. States she does not need it because she only has unprotected sex when she needs drugs and has decided to stop using drugs. Informed patient that if she changed her mind, or felt that she may need to have unprotected sex for other necessities, to consider PrEP. Explained the actions and safety of PrEP. - PEP HIV Risk Assessment Are you concerned about sexual encounters in past 72 hours?: No Recommendation: None at this time
[2019-10-13] MEDS: THIAMINE HCL 100 MG TABLET (FP) PO SCH (21:31)
[2019-10-13] MEDS: MONTELUKAST NA 10 MG TABLET PO SCH (21:31)
[2019-10-13] MEDS: ATORVASTATIN CA 20 MG TABLET (FP) PO SCH (21:31)
[2019-10-13] MEDS: MIRTAZAPINE 15 MG TABLET (FP) PO SCH (21:32)
[2019-10-14] MEDS: metFORMIN HCL 500 MG TABLET (FP) PO SCH ×2 (07:18→17:12)
[2019-10-14] MEDS: INSULIN SLIDING SCALE (NOVOLOG) 1 VIAL SQ SCH ×2 (08:34→17:30)
[2019-10-14] MEDS: PRENATAL VITAMINS W/ FOLIC ACID TABLET (FP) PO SCH (10:17)
[2019-10-14] MEDS: FAMOTIDINE 20 MG TABLET PO SCH (10:17)
[2019-10-14] MEDS: METHYL SALICYLATE/MENTHOL OINT 30 GM TUBE TP SCH ×2 (10:17→22:00)
[2019-10-14] MEDS: BUDESONIDE/FORMETEROL FUMARATE 80/4.5 mcg INHALER IH SCH ×2 (10:17→22:01)
[2019-10-14] MEDS: ATORVASTATIN CA 20 MG TABLET (FP) PO SCH (22:00)
[2019-10-14] MEDS: MIRTAZAPINE 15 MG TABLET (FP) PO SCH (22:01)
[2019-10-14] MEDS: MONTELUKAST NA 10 MG TABLET PO SCH (22:01)
[2019-10-14] MEDS: THIAMINE HCL 100 MG TABLET (FP) PO SCH (22:01)
[2019-10-15] MEDS: INSULIN SLIDING SCALE (NOVOLOG) 1 VIAL SQ SCH ×2 (06:38→17:25)
[2019-10-15] MEDS: metFORMIN HCL 500 MG TABLET (FP) PO SCH ×2 (06:38→17:28)
[2019-10-15] MEDS ORDERED: PT OWN MED DRAWER 7, Y5N ONE (08:57)
[2019-10-15] MEDS: FAMOTIDINE 20 MG TABLET PO SCH (10:36)
[2019-10-15] MEDS: PRENATAL VITAMINS W/ FOLIC ACID TABLET (FP) PO SCH (10:36)
[2019-10-15] MEDS: METHYL SALICYLATE/MENTHOL OINT 30 GM TUBE TP SCH ×2 (10:37→21:27)
[2019-10-15] MEDS: BUDESONIDE/FORMETEROL FUMARATE 80/4.5 mcg INHALER IH SCH ×2 (10:37→21:27)
[2019-10-15] MEDS: MIRTAZAPINE 15 MG TABLET (FP) PO SCH (21:25)
[2019-10-15] MEDS: ATORVASTATIN CA 20 MG TABLET (FP) PO SCH (21:25)
[2019-10-15] MEDS: THIAMINE HCL 100 MG TABLET (FP) PO SCH (21:25)
[2019-10-15] MEDS: MONTELUKAST NA 10 MG TABLET PO SCH (21:25)
[2019-10-16] MEDS: metFORMIN HCL 500 MG TABLET (FP) PO SCH ×2 (07:29→16:39)
[2019-10-16] MEDS: INSULIN SLIDING SCALE (NOVOLOG) 1 VIAL SQ SCH ×2 (07:29→16:39)
[2019-10-16] MEDS: FAMOTIDINE 20 MG TABLET PO SCH (09:29)
[2019-10-16] MEDS: PRENATAL VITAMINS W/ FOLIC ACID TABLET (FP) PO SCH (09:29)
[2019-10-16] MEDS: METHYL SALICYLATE/MENTHOL OINT 30 GM TUBE TP SCH ×2 (09:30→21:19)
[2019-10-16] MEDS: BUDESONIDE/FORMETEROL FUMARATE 80/4.5 mcg INHALER IH SCH ×2 (09:30→21:19)
[2019-10-16] MEDS: THIAMINE HCL 100 MG TABLET (FP) PO SCH (21:19)
[2019-10-16] MEDS: ATORVASTATIN CA 20 MG TABLET (FP) PO SCH (21:20)
[2019-10-16] MEDS: MONTELUKAST NA 10 MG TABLET PO SCH (21:20)
[2019-10-16] MEDS: MIRTAZAPINE 15 MG TABLET (FP) PO SCH (21:20)
[2019-10-17] MEDS: metFORMIN HCL 500 MG TABLET (FP) PO SCH ×2 (07:37→16:44)
[2019-10-17] MEDS: INSULIN SLIDING SCALE (NOVOLOG) 1 VIAL SQ SCH ×2 (07:37→17:16)
[2019-10-17] MEDS: BUDESONIDE/FORMETEROL FUMARATE 80/4.5 mcg INHALER IH SCH ×2 (10:19→21:26)
[2019-10-17] MEDS: PRENATAL VITAMINS W/ FOLIC ACID TABLET (FP) PO SCH (10:19)
[2019-10-17] MEDS: FAMOTIDINE 20 MG TABLET PO SCH (10:19)
[2019-10-17] MEDS: METHYL SALICYLATE/MENTHOL OINT 30 GM TUBE TP SCH ×2 (10:19→21:25)
--- NOTE | 2019-10-17 16:17 | PN ---
Psychiatric Progress Note Vital Signs: Vital Signs Period Temp Pulse Resp BP Sys/Coon Pulse Ox Last 24 Hr 98.0 F 82 18-18 99/67 Date of Session: 10/17/19 Chief Complaint:: " I need more remeron. I need to get back on risperdal." HPI: Day [address] Patient is addressing LITA issues (alcohol + cocaine) co-morbid with mood disorder and chronic insomnia. Ms Machado insisted for follow-up with psychiatrist to discuss optimization of mirtazapine and addition of risperidone to the regimen. ROS: Doing well. Patient is ambulatory. Without cane. Alert, fully oriented and goal-directed. Somatic complaint : insomnia. Current Medications: Active Medications Generic Name Dose Route Start Last Admin Trade Name Freq PRN Reason Stop Dose Admin Acetaminophen 650 mg 10/09/19 12:50 10/11/19 10:35 Tylenol - PO 650 mg Q4H PRN Administration FEVER Al Hydroxide/Mg Hydroxide 30 ml 10/09/19 12:50 10/12/19 16:54 Mylanta Oral Suspension - PO 30 ml Q6H PRN Administration DYSPEPSIA Albuterol Sulfate 2 puff 10/09/19 12:52 Ventolin Hfa Inhaler - IH Q4H PRN SHORT OF BREATH/WHEEZING Atorvastatin Calcium 20 mg 10/09/19 22:00 10/16/19 21:20 Lipitor - PO 20 mg HS REGAN Administration Budesonide/Formoterol Fumarate 1 puff 10/09/19 22:00 10/17/19 10:19 Symbicort 80/4.5mcg - IH 1 inh BID REGAN Administration Eucalyptus/Menthol/Phenol/Sorbitol 1 each 10/09/19 12:50 Cepastat Lozenge - MM Q4H PRN SORE THROAT Famotidine 40 mg 10/10/19 10:00 10/17/19 10:19 Pepcid - PO 40 mg DAILY REGAN Administration Guaifenesin 10 ml 10/09/19 12:50 Robitussin - PO Q6H PRN COUGH Hydroxyzine Pamoate 25 mg 10/09/19 12:50 Vistaril - PO Q4H PRN AGITATION Insulin Aspart 1 vial 10/09/19 16:30 10/17/19 07:37 Novolog Vial Sliding Scale - SQ Not Given BIDAC REGAN Protocol Loperamide HCl 4 mg 10/09/19 12:50 Imodium - PO Q6H PRN DIARRHEA Magnesium Citrate 300 ml 10/09/19 12:50 Citroma - PO Q48H PRN CONSTIPATION Magnesium Hydroxide 30 ml 10/09/19 12:50 Milk Of Magnesia - PO DAILY PRN CONSTIPATION Melatonin 5 mg 10/09/19 22:00 10/13/19 21:31 Melatonin PO 5 mg HS PRN Administration INSOMNIA Metformin HCl 500 mg 10/09/19 16:30 10/17/19 07:37 Glucophage - PO 500 mg BID@0700,1630 REGAN Administration Methocarbamol 500 mg 10/09/19 12:55 Robaxin - PO Q6H PRN MUSCLE SPASMS Methyl Salicylate 1 applic 10/11/19 10:45 10/17/19 10:19 Jeffery-Chavira - TP Not Given BID REGAN Mirtazapine 7.5 mg 10/10/19 22:00 10/16/19 21:20 Remeron - PO 7.5 mg HS REGAN Administration Montelukast Sodium 10 mg 10/10/19 22:00 10/16/19 21:20 Singulair - PO 10 mg HS REGAN Administration Nicotine Polacrilex 2 mg 10/09/19 12:50 Nicorette Gum - BUC Q2H PRN NICOTINE REPLACEMENT RX Multivit/Folic Acid/Iron 1 tab 10/10/19 10:00 10/17/19 10:19 Vitamins (Sjr) - PO 1 tab DAILY REGAN Administration Pseudoephedrine/Triprolidine 1 combo 10/09/19 12:50 Actifed - PO TID PRN NASAL CONGESTION Thiamine HCl 100 mg 10/09/19 22:00 10/16/19 21:19 Vitamin B1 - PO 100 mg HS REGAN Administration Medication(s) Change(s): Yes. Remeron is increased to 15 mg po hs and risperdal 1 mg (0.5 mg po bid) added to the regimen. Side effects/benefits of both molecules are discussed with the patient. She is made aware of the additional risk of abnormal involuntary movements (akathisia, dystonias, tardive dyskinesia ), neuroleptic malignant syndrome, galactorrhea, gynecomastia and cardiovascular adverse events. Ms Machado is in agreement with this plan of care. Contact made, via telephone, with pharmacist at [facility] ([phone]) : confirmed refills for risperdal 1 mg/day + remeron 15 mg/hs on 09/26/19. Current Side Effect: No Lab tests ordered: No Lab tests reviewed: Yes Provider note:: Chart reviewed. Multidisciplinary progress notes are appreciated. Met with the patient in the presence of water tender, assistant director of nursing Miah Flores (with patient's authorization). Ms Machado is observed as neatly groomed, pleasant, cooperative, well-mannered, energetic and ambulatory. She reports feeling much better. Patient endorses good appetite, improved self- confidence and the desire to " try my best to stay sober ". Mild, transient dysphoric symptoms are reported. No suicidal or homicidal ideation. Patient denies experiencing perceptual disturbances. Feels hopeful. Motivated for adherence to medications. Ms Machado indicates that she used to be on BROWNING (long- acting injectable) abilify as recently as july 2019. " I don't want to get back on that medication. That injection is painful. Give me my risperdal ". Mental status is stable. See MSE report. Remarkable progress. Benign hospital course. Psychiatric Treatment Plan - Problem List (1) Insomnia Current Visit: Yes Comment: . (2) Alcohol dependence Current Visit: Yes Comment: . (3) Cocaine dependence Current Visit: Yes Qualifiers: Substance use status: uncomplicated Qualified Code(s): F14.20 - Cocaine dependence, uncomplicated Comment: . (4) Nicotine dependence Current Visit: Yes Qualifiers: Nicotine product type: cigarettes Substance use status: uncomplicated Qualified Code(s): F17.210 - Nicotine dependence, cigarettes, uncomplicated Comment: . (5) Substance induced mood disorder Current Visit: Yes (6) History of depression Current Visit: Yes Comment: . (7) History of bipolar disorder Current Visit: Yes Comment: .
[2019-10-17] MEDS: ATORVASTATIN CA 20 MG TABLET (FP) PO SCH (21:23)
[2019-10-17] MEDS: THIAMINE HCL 100 MG TABLET (FP) PO SCH (21:23)
[2019-10-17] MEDS: MONTELUKAST NA 10 MG TABLET PO SCH (21:23)
[2019-10-17] MEDS: MIRTAZAPINE 15 MG TABLET (FP) PO SCH (21:24)
[2019-10-17] MEDS: risperiDONE 0.5 MG TABLET (FP) PO SCH (21:25)
[2019-10-18] MEDS: metFORMIN HCL 500 MG TABLET (FP) PO SCH ×2 (07:09→17:02)
[2019-10-18] MEDS: INSULIN SLIDING SCALE (NOVOLOG) 1 VIAL SQ SCH ×2 (07:10→17:02)
[2019-10-18] MEDS ORDERED: PT OWN MED DRAWER 7, Y5N ONE (09:08)
[2019-10-18] MEDS: METHYL SALICYLATE/MENTHOL OINT 30 GM TUBE TP SCH ×2 (10:18→21:15)
[2019-10-18] MEDS: FAMOTIDINE 20 MG TABLET PO SCH (10:18)
[2019-10-18] MEDS: risperiDONE 0.5 MG TABLET (FP) PO SCH ×2 (10:19→21:13)
[2019-10-18] MEDS: PRENATAL VITAMINS W/ FOLIC ACID TABLET (FP) PO SCH (10:19)
[2019-10-18] MEDS: BUDESONIDE/FORMETEROL FUMARATE 80/4.5 mcg INHALER IH SCH ×2 (10:19→21:14)
[2019-10-18] MEDS: THIAMINE HCL 100 MG TABLET (FP) PO SCH (21:13)
[2019-10-18] MEDS: MIRTAZAPINE 15 MG TABLET (FP) PO SCH (21:13)
[2019-10-18] MEDS: MONTELUKAST NA 10 MG TABLET PO SCH (21:13)
[2019-10-18] MEDS: ATORVASTATIN CA 20 MG TABLET (FP) PO SCH (21:13)
[2019-10-19] MEDS: metFORMIN HCL 500 MG TABLET (FP) PO SCH ×2 (06:46→17:38)
[2019-10-19] MEDS: INSULIN SLIDING SCALE (NOVOLOG) 1 VIAL SQ SCH ×2 (06:47→17:38)
[2019-10-19] MEDS: risperiDONE 0.5 MG TABLET (FP) PO SCH ×2 (10:18→21:12)
[2019-10-19] MEDS: PRENATAL VITAMINS W/ FOLIC ACID TABLET (FP) PO SCH (10:18)
[2019-10-19] MEDS: BUDESONIDE/FORMETEROL FUMARATE 80/4.5 mcg INHALER IH SCH ×2 (10:18→21:13)
[2019-10-19] MEDS: FAMOTIDINE 20 MG TABLET PO SCH (10:19)
[2019-10-19] MEDS: METHYL SALICYLATE/MENTHOL OINT 30 GM TUBE TP SCH ×2 (10:19→21:13)
[2019-10-19] MEDS ORDERED: PT OWN MED DRAWER 7, Y5N ONE ×2 (11:10→22:38)
--- NOTE | 2019-10-19 11:26 | DS ---
[facility] Rehab Discharge Summary - [facility] Rehab Discharge Summary Admission Date: 10/09/19 Discharge Date: 10/20/19 - History Present History: Alcohol dependence, Cocaine dependence Pertinent Past History: 58 years old female with a long history of alcohol use. Patient has been in detox multiple time and reports 11 months of sobriety. - Discharge Physical Exam Vital Signs: Vital Signs Temperature 97.5 F L 10/19/19 07:06 Pulse Rate 84 10/19/19 07:06 Respiratory Rate 18 10/19/19 07:06 Blood Pressure 132/81 10/19/19 07:06 O2 Sat by Pulse Oximetry (%) Pertinent Admission Physical Exam Findings: Physical General Appearance: No apparent distress HEENTM: Normocephalic Respiratory: Lungs Clear, Neck: Supple Cardiology: s1 s2 Abdominal: +Bowel Sounds, Soft Musculoskeletal: Neurological: CN 2-12 intact - Treatment Discharge Condition: Outpatient referral accepted (Medically stable for discharge. Patient will go to the [facility].) Hospital Course: patient attended groups, had 1:1 meetings with her counselor, was seen by the psychiatric service. She was adherent to her treatment plan and medication regimen. Patient fell while in rehab, she was transported to the [facility] ER and evaluated, no injury was found. She returned to rehab and was place on Fall [facility]. She was offered a referral for PrEP. - Medication Discharge Medications: Ambulatory Orders Mirtazapine 30 mg PO HS 10/05/18 Oxycodone HCl 30 mg PO Q4H 08/24/19 Risperidone 1 mg PO BID 08/24/19 Bupropion HCl [Wellbutrin Sr] 150 mg PO DAILY 10/09/19 Albuterol Sulfate Inhaler - [Ventolin HFA Inhaler -] 2 inh PO Q4H PRN #1 inhaler 10/19/19 Atorvastatin Ca [Lipitor] 20 mg PO HS #14 tablet 10/19/19 Budesonide/Formeterol Fumarate [SYMBICORT 80/4.5mcg -] 1 inh PO BID #1 inhaler 10/19/19 Famotidine [Pepcid] 40 mg PO DAILY #14 tablet 10/19/19 Metformin HCl [Glucophage] 500 mg PO BID #30 tablet 10/19/19 Mirtazapine [Remeron -] 15 mg PO HS #30 tablet 10/19/19 Mometasone/Formoterol [Dulera 100 Mcg/5 Mcg Inhaler] 1 inh IH BID #1 hfa.aer.ad 10/19/19 Montelukast Sodium [Singulair] 10 mg PO DAILY #14 tablet 10/19/19 Risperidone [Risperdal -] 0.5 mg PO BID #60 tablet 10/19/19 - Discharge Instructions Diet, activity, other medical instructions: Diet: Activity: Other medical instructions: - Diagnosis (1) Alcohol dependence Current Visit: Yes Status: Chronic Qualifiers: Substance use status: uncomplicated Qualified Code(s): F10.20 - Alcohol dependence, uncomplicated (2) Cocaine dependence Current Visit: Yes Status: Chronic Qualifiers: Substance use status: uncomplicated Qualified Code(s): F14.20 - Cocaine dependence, uncomplicated - Follow-up Referral Minutes to complete discharge: 20 - AMA Did Patient Leave Against Medical Advice: No
--- NOTE | 2019-10-19 12:21 | PN ---
[facility] Progress Note Note: Patient is scheduled for discharge tomorrow. Scripts for 30 days supply of medications(remeron 15 mg/hs, Risperdal 0.5 mg/bid) will be electronically transmitted to [facility] at [phone] [place] [address]
[2019-10-19] MEDS: ACETAMINOPHEN 325 MG TABLET (FP) PO PRN (18:05)
[2019-10-19] MEDS: MIRTAZAPINE 15 MG TABLET (FP) PO SCH (21:12)
[2019-10-19] MEDS: ATORVASTATIN CA 20 MG TABLET (FP) PO SCH (21:12)
[2019-10-19] MEDS: MONTELUKAST NA 10 MG TABLET PO SCH (21:12)
[2019-10-19] MEDS: THIAMINE HCL 100 MG TABLET (FP) PO SCH (21:12)
[2019-10-20] MEDS: metFORMIN HCL 500 MG TABLET (FP) PO SCH (06:36)
[2019-10-20] MEDS: INSULIN SLIDING SCALE (NOVOLOG) 1 VIAL SQ SCH (06:36)
[2019-10-20 07:04] VITALS: BP 138/75; PULSE 83; TEMP 97.4
[2019-10-20] MEDS ORDERED: PT OWN MED DRAWER 7, Y5N ONE (08:53)
[2019-10-20] MEDS: METHYL SALICYLATE/MENTHOL OINT 30 GM TUBE TP SCH (09:18)
[2019-10-20] MEDS: PRENATAL VITAMINS W/ FOLIC ACID TABLET (FP) PO SCH (09:18)
[2019-10-20] MEDS: risperiDONE 0.5 MG TABLET (FP) PO SCH (09:18)
[2019-10-20] MEDS: BUDESONIDE/FORMETEROL FUMARATE 80/4.5 mcg INHALER IH SCH (09:18)
[2019-10-20] MEDS: FAMOTIDINE 20 MG TABLET PO SCH (09:18)
== END 2019-10-20 09:38 | disposition home or self-care (01) | DRG 772 ==
LOC: YASAS 12:22 → Y3E 12:23
PROVIDERS: ADMIT Neuromusculoskeletal Medicine & OMM; ATTEND Neuromusculoskeletal Medicine & OMM
PROC: HZ42ZZZ Group Counseling for Substance Abuse Treatment, Cognitive-Behavioral (ICD-10-PCS; principal; 2019-10-09)
DX: F10.20 Alcohol dependence, uncomplicated (principal); F14.20 Cocaine dependence, uncomplicated; F17.210 Nicotine dependence, cigarettes, uncomplicated; F31.9 Bipolar disorder, unspecified; F19.24 Other psychoactive substance dependence with psychoactive substance-induced mood disorder; G47.00 Insomnia, unspecified; J44.9 Chronic obstructive pulmonary disease, unspecified; J45.998 Other asthma; E78.5 Hyperlipidemia, unspecified; E11.9 Type 2 diabetes mellitus without complications; Z79.84 Long term (current) use of oral hypoglycemic drugs; M17.11 Unilateral primary osteoarthritis, right knee; M25.561 Pain in right knee; W18.2XXA Fall in (into) shower or empty bathtub, initial encounter; Y93.89 Activity, other specified; Y92.231 Patient bathroom in hospital as the place of occurrence of the external cause; Y99.8 Other external cause status; Z99.89 Dependence on other enabling machines and devices; Z91.19 Patient's noncompliance with other medical treatment and regimen
CPT/HCPCS: 82962

== ENCOUNTER 2019-10-11 11:34 | Emergency (ER) | payer OTHER ==
[2019-10-11 12:00] VITALS: BMI 23.1
--- NOTE | 2019-10-11 12:36 | PDOC ---
History of Present Illness - General Chief Complaint: Injury Stated Complaint: FALL Time Seen by Provider: 10/11/19 12:20 - History of Present Illness Initial Comments: 10/11/19 12:50 Pt is a 58 y/o F with a PMH of HTN, HLD, COPD, Asthma, Lung cancer (s/p partial R lung resection), arthritis, and slipped herniated disc presents to our ED from [facility] due to a mechanical fall. Pt endorses she was getting into the shower earlier today where she lost her balance and landed on her right knee. Pt states she did not loss consciousness. Denies any chest pain, shortness of breath, blurry vision, or lightheadedness prior to the episode. Describes the pain as 8/10 in severity, nonradiating, and constant. Endorses prior knee surgery to the area. PMH as above SocialHx- Endorses smoking cigarettes 10 cig/day, Smokes Cocaine, drinks 1 pint/ day vodka SurgHx- Right Knee surgery, Partial R lobectomy. Past History - Past Medical History Allergies/Adverse Reactions: Allergies Allergy/AdvReac Type Severity Reaction Status Date / Time No Known Allergies Allergy Verified 10/04/19 23:46 Home Medications: Ambulatory Orders Mirtazapine 30 mg PO HS 10/05/18 Oxycodone HCl 30 mg PO Q4H 08/24/19 Risperidone 1 mg PO BID 08/24/19 Bupropion HCl [Wellbutrin Sr] 150 mg PO DAILY 10/09/19 Albuterol Sulfate Inhaler - [Ventolin HFA Inhaler -] 2 inh PO Q4H PRN #1 inhaler 10/19/19 Atorvastatin Ca [Lipitor] 20 mg PO HS #14 tablet 10/19/19 Budesonide/Formeterol Fumarate [SYMBICORT 80/4.5mcg -] 1 inh PO BID #1 inhaler 10/19/19 Famotidine [Pepcid] 40 mg PO DAILY #14 tablet 10/19/19 Metformin HCl [Glucophage] 500 mg PO BID #30 tablet 10/19/19 Mirtazapine [Remeron -] 15 mg PO HS #30 tablet 10/19/19 Mometasone/Formoterol [Dulera 100 Mcg/5 Mcg Inhaler] 1 inh IH BID #1 hfa.aer.ad 10/19/19 Montelukast Sodium [Singulair] 10 mg PO DAILY #14 tablet 10/19/19 Risperidone [Risperdal -] 0.5 mg PO BID #60 tablet 10/19/19 Anemia: No Asthma: Yes Cancer: Yes (lung CA s/p lobectomy) Cardiac Disorders: No CVA: No COPD: Yes Dementia: No Diabetes: Yes (TYPE 2 ) GI Disorders: No Disorders: No HTN: No Hypercholesterolemia: Yes Kidney Stones: No Liver Disease: No Seizures: No Thyroid Disease: No - Surgical History Lung Surgery: Yes (lobectomy August 2017) Orthopedic Surgery: Yes (R knee sx for fx 15 yrs ago.And left knee sx 20yrs ago) - Reproductive History PID: No - Psycho Social/Smoking Cessation Hx Smoking History: Former smoker Have you smoked in the past 12 months: Yes Number of Cigarettes Smoked Daily: 20 If you are a former smoker, when did you quit?: 09/29/2019 Information on smoking cessation initiated: Yes 'Breaking Loose' booklet given: 10/05/19 Hx Alcohol Use: Yes Drug/Substance Use Hx: Yes (cocaine) Substance Use Type: Alcohol, Cocaine Hx Substance Use Treatment: Yes ([facility]) Review of Systems - Review of Systems Able to Perform ROS?: Yes Is the patient limited [place] proficient: No Constitutional: No: Chills, Fever HEENTM: No: Blurred Vision Respiratory: No: Shortness of Breath Cardiac (ROS): No: Chest Pain, Palpitations ABD/GI: No: Constipated, Diarrhea : No: Burning, Dysuria Neurological: No: Numbness, Paresthesia *Physical Exam - Vital Signs Last Vital Signs Temp Pulse Resp BP Pulse Ox 97.7 F 84 20 120/68 97 10/11/19 11:35 10/11/19 11:35 10/11/19 11:35 10/11/19 11:35 10/11/19 11:35 - Physical Exam HEENT: positive: EOMI. negative: Scleral Icterus (R), Scleral Icterus (L) Neck: positive: Supple Respiratory/Chest: positive: Lungs Clear Cardiovascular: positive: Regular Rhythm, S1, S2 Gastrointestinal/Abdominal: positive: Soft. negative: Distended, Guarding, Rebound, Tenderness Extremity: positive: Tender. negative: Swelling, Calf Tenderness, Erythema, Inflammation (Right knee ) Integumentary: positive: Normal Color, Dry, Warm Neurologic: positive: contracting executive II-XII NML intact, Fully Oriented, Alert Medical Decision Making - Medical Decision Making 10/11/19 12:35 58 y/o F presents to our Emergency Department due to mechanical fall. Will order Knee XRAY, EKG. and reassess. 10/11/19 12:57 10/11/19 14:21 Knee XRAY--. no acute fracture. Will d/c patient back to [facility] . 10/11/19 14:31 EKG nl sinus rhythm, septal infarct undetermined. Vent rate 78 bpm. QTc 435. [place] normal, intervals normal, no ST-T wave abnormalities. Discharge - Discharge Information Problems reviewed: Yes Clinical Impression/Diagnosis: Fall Disposition: HOME - Follow up/Referral - Patient Discharge Instructions Patient Printed Discharge Instructions: How to Prevent Falls Additional Instructions: You presented to the Emergency Department due to a fall. Imaging of your knee did not reveal any acute fracture. Please return to the Emergency Department if you begin to experience worsening knee pain, or any other abnormal symptoms including chest pain, shortness of breath, or fever. You may take Tylenol for the pain. Please follow up with your primary care doctor in 1 week. If you do not have a primary care doctor, you may follow up at our clinic. A referral has been provided for you in your discharge papers. - Post Discharge Activity
--- NOTE | 2019-10-11 13:09 | PDOC ---
Documentation entered by Evita Sanz SCRIBE, acting as scribe for Hiram Rowell MD. Hiram Rowell MD: This documentation has been prepared by the Yvon holm Xhesika, SCRIBE, under my direction and personally reviewed by me in its entirety. I confirm that the documentation accurately reflects all work, treatment, procedures, and medical decision making performed by me. Attending Attestation - Resident Resident Name: Crescencio Estrella - ED Attending Attestation I have performed the following: I have examined & evaluated the patient, The case was reviewed & discussed with the resident, I agree w/resident's findings & plan, Exceptions are as noted - HPI HPI: 10/11/19 12:41 The patient is a 58 year old female with a significant PMH of substance abuse ( heroin), HLD, COPD, DM type 2, asthma, lung ca s/p lobectomy (August 2017) who presents to the emergency department from [facility] for Knee pain s/p mechanical fall. The patient states she was getting in the shower and slipped. Patient denies hitting head, LOC or weakness. The patient denies chest pain, shortness of breath, headache and dizziness. Denies fever, chills, cough, nausea, vomiting, diarrhea and constipation. Denies dysuria, frequency, urgency and hematuria. Allergies: NKDA Past surgical history: lobectomy August 2017, R knee sx for fx 15 yrs ago.And left knee sx 20yrs ago Social history: currently at [facility] for substance abuse (heroin) - Physicial Exam PE: 10/11/19 12:43 GENERAL: The patient is awake, alert, and fully oriented, Nontoxic - in no acute distress. HEAD: Normocephalic, atraumatic. ENT: Normal voice, Moist mucous membranes. NECK: Normal range of motion, supple without lymphadenopathy, JVD, or masses. LUNGS: Breath sounds equal, clear to auscultation bilaterally. No wheezes, no crackles, no rales. HEART: Regular rate and rhythm, normal S1 and S2 without murmur, rub or gallop. ABDOMEN: Soft, nontender, normoactive bowel sounds. No guarding, no rebound. No masses. EXTREMITIES: Moving all 4 extremities spontaneously symmetrically, abrasion noted on the lateral aspect of the right patella with mild tenderness, normal movement on passive ROM of the upper and lower extremities NEUROLOGICAL: No facial asymmetry, Normal speech, normal gait. PSYCH: Normal mood, normal affect. SKIN: Warm, Dry, normal turgor, no rashes or lesions noted. - Medical Decision Making 10/11/19 13:07 58-year-old presenting from [facility] for evaluation of knee pain patient had slipped in the shower landed on her right knee complaining of pain. She denies any LOC, headache, chest pain, back pain, neck pain, head injury, palpitations, fever, chills. The patient's knee exam reveals mild tenderness to the patella with abrasion. Normal pasive range of motion of the hips and knees without discomfort 10/11/19 15:07 xray without focal findings will dc back to rehab Heart Score/ECG Review - ECG Impressions Comment:: 10/11/19 14:28 Twelve-lead EKG was performed and reviewed by me. There is normal sinus rhythm with a normal rate. Rate of 78 The axis is normal. The intervals are normal. There is normal R wave progression There are no ST or T wave abnormalities.
[2019-10-11] MEDS ORDERED: ACETAMINOPHEN 325 MG TABLET (FP) PO ONE (14:27)
[2019-10-11 14:29] VITALS: BP 118/70; PULSE 86; TEMP 97.9
[2019-10-11] MEDS ORDERED: ACETAMINOPHEN 325 MG TABLET (FP) ONE (14:31)
--- NOTE | 2019-10-12 12:17 | EKG ---
Test Reason : Blood Pressure : / mmHG Vent. Rate : 078 BPM Atrial Rate : 078 BPM P-R Int : 196 ms QRS Dur : 082 ms QT Int : 382 ms P-R-T Axes : 064 025 056 degrees QTc Int : 435 ms NORMAL SINUS RHYTHM SEPTAL INFARCT , AGE UNDETERMINED ABNORMAL ECG WHEN COMPARED WITH ECG OF 05-OCT-2018 10:43, SEPTAL INFARCT IS NOW PRESENT Confirmed by RICK WALKER, JAMES ([id number]) on 10/12/2019 12:17:24 PM Referred By: Confirmed By:JAMES CABRERA MD
== END 2019-10-11 16:07 | disposition home or self-care (01) ==
LOC: JER 11:34
DX: S89.81XA Other specified injuries of right lower leg, initial encounter (principal); M25.561 Pain in right knee; W18.2XXA Fall in (into) shower or empty bathtub, initial encounter; Y93.E1 Activity, personal bathing and showering; Y92.231 Patient bathroom in hospital as the place of occurrence of the external cause; Y99.8 Other external cause status; I10 Essential (primary) hypertension; J44.9 Chronic obstructive pulmonary disease, unspecified; J45.998 Other asthma; E78.5 Hyperlipidemia, unspecified; E11.9 Type 2 diabetes mellitus without complications; Z79.84 Long term (current) use of oral hypoglycemic drugs; M12.9 Arthropathy, unspecified; Z85.118 Personal history of other malignant neoplasm of bronchus and lung; Z90.2 Acquired absence of lung [part of]; F11.10 Opioid abuse, uncomplicated; Z87.891 Personal history of nicotine dependence
CPT/HCPCS: 73562-TC-RT-FY; 93005; 93010; 99282-25

== ENCOUNTER 2020-09-05 16:06 | Inpatient (IN) | payer OTHER ==
[2020-09-05 16:59] VITALS: BMI 23.1
[2020-09-05] MEDS ORDERED: IBUPROFEN 400 MG TABLET (FP) PO PRN (18:59)
[2020-09-05] MEDS ORDERED: chlordiazePOXIDE HCL 25 MG CAPSULE PO PRN (18:59)
[2020-09-05] MEDS ORDERED: MAG HYDROX/AL HYDROX/SIMETH 30 ML UNIT-DOSE CUP PO PRN (18:59)
[2020-09-05] MEDS ORDERED: BISMUTH SUBSALICYLATE 524 MG/30 ML UD PO PRN (18:59)
[2020-09-05] MEDS ORDERED: ACETAMINOPHEN 325 MG TABLET (FP) PO PRN ×2 (18:59)
[2020-09-05] MEDS ORDERED: ONDANSETRON *ODT* 4 MG TABLET SL PRN (18:59)
[2020-09-05] MEDS ORDERED: MENTHOL/PHENOL 1 EACH UD MM PRN (18:59)
[2020-09-05] MEDS ORDERED: MAGNESIUM CITRATE 300 ML BOTTLE PO PRN (18:59)
[2020-09-05] MEDS ORDERED: MAGNESIUM HYDROX 2400MG/30ML ORAL SUSPENSION 30 ML CUP PO PRN (18:59)
[2020-09-05] MEDS ORDERED: METHOCARBAMOL 500 MG TABLET PO PRN (18:59)
[2020-09-05] MEDS ORDERED: NICOTINE POLACRILEX 2 MG GUM BUC PRN (18:59)
--- NOTE | 2020-09-05 18:59 | BHS.RME ---
Substance Use & Tx History - Substance Use History Alcohol Substance amount: 1 pint Frequency of use: Daily Substance route: Oral Date of Last Use: 09/05/20 Cocaine-Crack Substance amount: $100 Frequency of use: Daily Substance route: Smoking Date of Last Use: 09/05/20 Physical/Psych/Mental Status - Behavior General Behavior: Decreased activity Eye Contact: Normal - Cooperativeness Cooperativeness: Cooperative - Thinking Thought Processes: Tight, Logical Thought content: Future oriented - Physical Health Problems Is patient presently having any pain?: No Does patient presently have any injuries (include location): No Does patient currently have a fever: No Is patient : No CIWA Nausea/Vomitin-Mild Nausea/No Vomiting Muscle Tremors: 3 Anxiety: 3 Agitation: 2 Paroxysmal Sweats: 3 Orientation: 0-Oriented Tacttile Disturbances: 0-None Auditory Disturbances: 0-None Visual Disturbances: 0-None Headache: 0-None Present CIWA-Ar Total Score: 12
[2020-09-05] MEDS ORDERED: ALBUTEROL SO4 HFA INHALER IH PRN (19:03)
--- NOTE | 2020-09-05 19:21 | HP ---
CIWA Score Nausea/Vomitin-Mild Nausea/No Vomiting Muscle Tremors: 3 Anxiety: 3 Agitation: 2 Paroxysmal Sweats: 3 Orientation: 0-Oriented Tacttile Disturbances: 0-None Auditory Disturbances: 0-None Visual Disturbances: 0-None Headache: 0-None Present CIWA-Ar Total Score: 12 - Admission Criteria OASAS Guidelines: Admission for Medically Managed Detox: Requires at least one of the followin. CIWA greater than 12 2. Seizures within the past 24 hours 3. Delirium tremens within the past 24 hours 4. Hallucinations within the past 24 hours 5. Acute intervention needed for co occurring medical disorder 6. Acute intervention needed for co occurring psychiatric disorder 7. Severe withdrawal that cannot be handled at a lower level of care (continued vomiting, continued diarrhea, abnormal vital signs) requiring intravenous medication and/or fluids 8. Patient presents the following: Acute intervention needed for co-occurring med or psych disorder Admission Criteria Met: Admission criteria met Admitting History and Physical - Admission Chief Complaint: i want detox. History of Present Illness: Patient is a 59 y/o F with a PMH of HTN, HLD, COPD, Asthma, Lung cancer (s/p partial R lung resection), arthritis, slipped herniated disc, alcohol and cocaine use disorder presents to [facility] for alcohol detox. PMH as above SocialHx- Endorses smoking cigarettes 10 cig/day, Smokes Cocaine, drinks 1 pint/day vodka SurgHx- Right Knee surgery, Partial R lobectomy (2017). History Source: Patient Limitations to Obtaining History: No Limitations - Past Medical History Cardiovascular: Yes: HTN Pulmonary: Yes: Asthma, Bronchitis, Cancer (lung ca, sp lobectomy 2017), COPD Gastrointestinal: Yes: Gastritis ...LMP: 12/06/14 (5 years ago ) ...: No Psych: Yes: Bipolar, Depression Endocrine: Yes: Diabetes Mellitus - Past Surgical History Past Surgical History: Yes: Joint Replacement Additional Past Surgical History: lung surgery for lung cancer (2017) - Smoking History Smoking history: Current every day smoker Have you smoked in the past 12 months: Yes Aproximately how many cigarettes per day: 20 If you are a former smoker, when did you quit?: 09/29/2019 - Alcohol/Substance Use Hx Alcohol Use: Yes History of Substance Use: reports: Cocaine - Social History Usual Living Arrangement: Yes: Alone Do you think of yourself as: Straight/Heterosexual ADL: Independent History of Recent Travel: No Admission ROS [facility] - [facility] Allergies/Adverse Reactions: Allergies Allergy/AdvReac Type Severity Reaction Status Date / Time No Known Allergies Allergy Verified 09/05/20 18:58 History of Present Illness: Patient is a 59 y/o F with a PMH of HTN, HLD, COPD, Asthma, Lung cancer (s/p partial R lung resection), arthritis, slipped herniated disc, alcohol and cocaine use disorder presents to [facility] for alcohol detox. PMH as above SocialHx- Endorses smoking cigarettes 10 cig/day, Smokes Cocaine, drinks 1 pint/day vodka SurgHx- Right Knee surgery, Partial R lobectomy (2017). Exam Limitations: No Limitations - Ebola screening Have you traveled outside of the country in the last 21 days: No Have you had contact with anyone from an Ebola affected area: No Have you been sick,other than usual withdrawal symptoms: No Do you have a fever: No - Review of Systems Constitutional: Loss of Appetite, Night Sweats, Weakness EENT: reports: No Symptoms Reported Respiratory: reports: No Symptoms reported Cardiac: reports: No Symptoms Reported GI: reports: No Symptoms Reported : reports: No Symptoms Reported Musculoskeletal: reports: Joint Pain (right knee pain, history of surgery) Integumentary: reports: No Symptoms Reported Neuro: reports: Tremors, Weakness Endocrine: reports: Unexplained Weight Loss Hematology: reports: No Symptoms Reported Psychiatric: reports: Mood/Affect Appropiate, Orientated x3, Anxious Other Systems: Reviewed and Negative Patient History - Patient Medical History Hx Anemia: No Hx Asthma: Yes Hx Chronic Obstructive Pulmonary Disease (COPD): Yes Hx Cancer: Yes (lung CA s/p lobectomy) Hx Cardiac Disorders: No Hx Hypertension: No Hx Hypercholesterolemia: Yes Hx Pacemaker: No HX Cerebrovascular Accident: No Hx Seizures: No Hx Dementia: No Hx Diabetes: Yes (TYPE 2 ) Hx Gastrointestinal Disorders: No Hx Liver Disease: No Hx Genitourinary Disorders: No Hx Sexually Transmitted Disorders: No Hx Renal Disease (ESRD): No Hx Thyroid Disease: No Hx Human Immunodeficiency Virus (HIV): No (last 08/17 negative) Hx Hepatitis C: No Hx Depression: Yes Hx Suicide Attempt: No Hx Bipolar Disorder: Yes Hx Schizophrenia: No - Patient Surgical History Past Surgical History: Yes Hx Lung Surgery: Yes (lobectomy August 2017) Hx Orthopedic Surgery: Yes (R knee sx for fx 15 yrs ago.And left knee sx 20yrs ago) - PPD History Date: 08/26/19 Results: 0mm - Reproductive History Patient is a Female of Child Bearing Age (11 -55 yrs old): No LMP comment: last period was 5 years ago Patient : No - Smoking Cessation Smoking history: Former smoker Have you smoked in the past 12 months: Yes Aproximately how many cigarettes per day: 20 If you are a former smoker, when did you quit?: 09/29/2019 Hx Chewing Tobacco Use: No Initiated information on smoking cessation: Yes 'Breaking Loose' booklet given: 09/05/20 - Substance & Tx. History Hx Alcohol Use: Yes Hx Substance Use: Yes Substance Use Type: Alcohol, Cocaine Hx Substance Use Treatment: Yes (was here for alcohol detox last september) - Substances abused Cocaine Substance route: Smoking Frequency: Daily Amount used: $100 Age of first use: 16 Date of last use: 09/05/20 Alcohol Substance route: Oral Frequency: Daily Amount used: 1 pint Age of first use: 16 Date of last use: 09/05/20 Admission Physical Exam BHS - Vital Signs Vital Signs: Vital Signs - 24 hr 09/05/20 16:58 Temperature 97.2 F L Pulse Rate 99 H Respiratory 16 Rate Blood Pressure 117/79 - Physical General Appearance: Yes: No Apparent Distress, Tremorous, Irritable, Anxious HEENTM: Yes: Within Normal Limits Respiratory: Yes: Within Normal Limits, Chest Non-Tender, Normal Breath Sounds Neck: Yes: Within Normal Limits Breast: Yes: Breast Exam Deferred Cardiology: Yes: Within Normal Limits, Regular Rhythm, Regular Rate, S1, S2 Abdominal: Yes: Within Normal Limits Genitourinary: Yes: Within Normal Limits Back: Yes: Within Normal Limits, Normal Inspection Musculoskeletal: Yes: Within Normal Limits, Joint Stiffness Extremities: Yes: Within Normal Limits, Normal Capillary Refill, Normal Inspection Neurological: Yes: Within Normal Limits, Fully Oriented, Alert, Normal Response Integumentary: Yes: Within Normal Limits, Normal Color, Dry, Warm Lymphatic: Yes: Within Normal Limits - Diagnostic (1) Alcohol dependence with uncomplicated withdrawal Current Visit: No Status: Acute (2) Asthma Current Visit: No Status: Chronic Qualifiers: Asthma severity: mild Asthma persistence: intermittent (3) COPD (chronic obstructive pulmonary disease) Current Visit: No Status: Chronic Qualifiers: Chronic bronchitis type: unspecified (4) Cocaine dependence Current Visit: No Status: Chronic Qualifiers: Substance use status: uncomplicated Qualified Code(s): F14.20 - Cocaine dependence, uncomplicated Comment: . (5) DM2 (diabetes mellitus, type 2) Current Visit: No Status: Chronic (6) GERD (gastroesophageal reflux disease) Current Visit: No Status: Chronic (7) HLD (hyperlipidemia) Current Visit: No Status: Chronic Qualifiers: Hyperlipidemia type: unspecified Qualified Code(s): E78.5 - Hyperlipidemia, unspecified (8) Nicotine dependence Current Visit: No Status: Chronic Qualifiers: Nicotine product type: cigarettes Substance use status: uncomplicated Qualified Code(s): F17.210 - Nicotine dependence, cigarettes, uncomplicated Comment: . (9) History of lung cancer Current Visit: No Status: Resolved (10) History of right knee surgery Current Visit: No Status: Resolved Cleared for Admission S - Detox or Rehab [facility] Level of Care: Medically Managed Detox Regimen/Protocol: Librium Claeared for Rehab Admission: No Breathalyzer - Breathalyzer Breathalyzer: 0 Urine Drug Screen - Test Device Lot number: [id number] Expiration date: 03/07/22 - Control Is test valid?: Yes - Results Drug screen NEGATIVE: No Urine drug screen results: [facility]UCKER-Cocaine Inpatient Rehab Admission - Rehab Decision to Admit Inpatient rehab admission?: No
[2020-09-05] MEDS: MELATONIN 5 MG TABLETS PO SCH (22:52)
[2020-09-05] MEDS: ATORVASTATIN CA 20 MG TABLET (FP) PO SCH (22:52)
[2020-09-05] MEDS: hydrOXYzine PAMOATE 25 MG CAPSULE (FP) PO SCH (22:52)
[2020-09-05] MEDS: BUDESONIDE/FORMETEROL FUMARATE 80/4.5 mcg INHALER IH SCH (22:52)
[2020-09-05] MEDS: THIAMINE HCL 100 MG TABLET (FP) PO SCH (22:52)
[2020-09-05] MEDS: chlordiazePOXIDE HCL 25 MG CAPSULE PO SCH (22:53)
[2020-09-06] MEDS: hydrOXYzine PAMOATE 25 MG CAPSULE (FP) PO SCH ×5 (05:29→22:29)
[2020-09-06] MEDS: chlordiazePOXIDE HCL 25 MG CAPSULE PO SCH ×4 (05:29→22:29)
[2020-09-06] MEDS: metFORMIN HCL 500 MG TABLET (FP) PO SCH ×2 (07:29→16:30)
[2020-09-06] MEDS: FAMOTIDINE 20 MG TABLET PO SCH (10:32)
[2020-09-06] MEDS: PRENATAL VITAMINS W/ FOLIC ACID TABLET (FP) PO SCH (10:32)
[2020-09-06] MEDS: NICOTINE 7 MG/24 HOURS TOPICAL PATCH TD SCH (10:32)
[2020-09-06] MEDS: BUDESONIDE/FORMETEROL FUMARATE 80/4.5 mcg INHALER IH SCH ×2 (10:33→22:30)
[2020-09-06 10:34] LABS: HEMATOCRIT 36.4 % (32.4-45.2); MCH 29.3 pg (25.7-33.7); MCHC 33.1 g/dl (32.0-36.0); MEAN CELL VOLUME 88.7 fl (80-96); MEAN PLT VOLUME 8.6 fl (7.5-11.1); PLATELET COUNT 199 K/MM3 (134-434); RBC 4.11 M/mm3 (3.60-5.2); RDW 16.8 % (11.6-15.6); WHITE BLOOD COUNT 4.2 K/mm3 (4.0-10.0)
[2020-09-06 10:45] LABS: ALBUMIN 2.8 g/dl (3.4-5.0); CALCIUM 8.5 mg/dL (8.5-10.1); CREATININE 0.6 mg/dL (0.55-1.3); POTASSIUM 3.9 mmol/L (3.5-5.1)
[2020-09-06 10:48] LABS: BILIRUBIN,TOTAL 0.5 mg/dL (0.2-1); TOT PROT 6.3 g/dl (6.4-8.2)
--- NOTE | 2020-09-06 13:27 | EKG ---
Test Reason : Blood Pressure : / mmHG Vent. Rate : 096 BPM Atrial Rate : 096 BPM P-R Int : 160 ms QRS Dur : 080 ms QT Int : 360 ms P-R-T Axes : 069 050 068 degrees QTc Int : 454 ms NORMAL SINUS RHYTHM NORMAL ECG WHEN COMPARED WITH ECG OF 11-OCT-2019 13:55, NO SIGNIFICANT CHANGE WAS FOUND Confirmed by YANELY SANTIAGO MD ([id number]) on 09/06/2020 1:27:33 PM Referred By: Confirmed By:YANELY SANTIAGO MD
--- NOTE | 2020-09-06 14:02 | PN ---
S CIWA - CIWA Score Nausea/Vomitin-Mild Nausea/No Vomiting Muscle Tremors: 2 Anxiety: 2 Agitation: 2 Paroxysmal Sweats: 1-Minimal Palms Moist Orientation: 0-Oriented Tacttile Disturbances: 1-Very Mild Itch/Numbness Auditory Disturbances: 0-None Visual Disturbances: 0-None Headache: 2-Mild CIWA-Ar Total Score: 11 S Progress Note (SOAP) Subjective: alert,irritable,anxious,interrupted sleep,tremor,aching pain body and back Objective: 09/06/20 18:03 Vital Signs Temperature 98.0 F 09/06/20 17:08 Pulse Rate 74 09/06/20 17:08 Respiratory Rate 16 09/06/20 17:08 Blood Pressure 110/64 09/06/20 17:08 O2 Sat by Pulse Oximetry (%) 96 09/06/20 12:37 09/06/20 18:03 Laboratory Last Values WBC 4.2 K/mm3 (4.0-10.0) 09/06/20 07:00 RBC 4.11 M/mm3 (3.60-5.2) 09/06/20 07:00 Hgb 12.0 GM/dL (10.7-15.3) 09/06/20 07:00 Hct 36.4 % (32.4-45.2) 09/06/20 07:00 MCV 88.7 fl (80-96) 09/06/20 07:00 MCH 29.3 pg (25.7-33.7) D 09/06/20 07:00 MCHC 33.1 g/dl (32.0-36.0) 09/06/20 07:00 RDW 16.8 % (11.6-15.6) H 09/06/20 07:00 Plt Count 199 K/MM3 (134-434) 09/06/20 07:00 MPV 8.6 fl (7.5-11.1) 09/06/20 07:00 Sodium 140 mmol/L (136-145) 09/06/20 07:00 Potassium 3.9 mmol/L (3.5-5.1) 09/06/20 07:00 Chloride 107 mmol/L (98-107) 09/06/20 07:00 Carbon Dioxide 26 mmol/L (21-32) 09/06/20 07:00 Anion Gap 7 MMOL/L (8-16) L 09/06/20 07:00 BUN 9.0 mg/dL (7-18) 09/06/20 07:00 Creatinine 0.6 mg/dL (0.55-1.3) 09/06/20 07:00 Est GFR (CKD-EPI)AfAm 114.82 09/06/20 07:00 Est GFR (CKD-EPI)NonAf 99.07 09/06/20 07:00 POC Glucometer 106 UNITS (80-120) 09/06/20 16:44 Random Glucose 111 mg/dL (74-106) H 09/06/20 07:00 Calcium 8.5 mg/dL (8.5-10.1) 09/06/20 07:00 Total Bilirubin 0.5 mg/dL (0.2-1) 09/06/20 07:00 AST 11 U/L (15-37) L 09/06/20 07:00 ALT 11 U/L (13-61) L 09/06/20 07:00 Alkaline Phosphatase 84 U/L (45-117) 09/06/20 07:00 Total Protein 6.3 g/dl (6.4-8.2) L 09/06/20 07:00 Albumin 2.8 g/dl (3.4-5.0) L 09/06/20 07:00 Assessment: 09/06/20 18:04 withdrawal symptom Plan: continue detox librium regimen
--- NOTE | 2020-09-06 15:05 | CONSULT ---
[facility] Psychiatric Consult - Data Date of interview: 09/06/20 Admission source: [facility] Identifying data: Black Puller approached patient for psychiatric consultation, Patient stated " I'm too tired today. Not today." Psychiatric consultation refused.
[2020-09-06] MEDS: THIAMINE HCL 100 MG TABLET (FP) PO SCH (22:29)
[2020-09-06] MEDS: ATORVASTATIN CA 20 MG TABLET (FP) PO SCH (22:29)
[2020-09-06] MEDS: MELATONIN 5 MG TABLETS PO SCH (22:30)
[2020-09-07] MEDS: hydrOXYzine PAMOATE 25 MG CAPSULE (FP) PO SCH ×5 (07:17→22:39)
[2020-09-07] MEDS: chlordiazePOXIDE HCL 25 MG CAPSULE PO SCH ×4 (07:17→22:40)
[2020-09-07] MEDS: metFORMIN HCL 500 MG TABLET (FP) PO SCH ×2 (07:18→17:49)
[2020-09-07] MEDS: PRENATAL VITAMINS W/ FOLIC ACID TABLET (FP) PO SCH (10:30)
[2020-09-07] MEDS: FAMOTIDINE 20 MG TABLET PO SCH (10:30)
[2020-09-07] MEDS: NICOTINE 7 MG/24 HOURS TOPICAL PATCH TD SCH (10:31)
[2020-09-07] MEDS: BUDESONIDE/FORMETEROL FUMARATE 80/4.5 mcg INHALER IH SCH ×2 (10:33→22:40)
--- NOTE | 2020-09-07 11:22 | PN ---
[facility] CIWA - CIWA Score Nausea/Vomitin-Mild Nausea/No Vomiting Muscle Tremors: 1-None Visible, but [place] Anxiety: 2 Agitation: 1-Slight > Activity Paroxysmal Sweats: 1-Minimal Palms Moist Orientation: 0-Oriented Tacttile Disturbances: 0-None Auditory Disturbances: 0-None Visual Disturbances: 0-None Headache: 1-Very Mild CIWA-Ar Total Score: 7 S Progress Note (SOAP) Subjective: Pt seen at bedside this morning. Reports improved withdrawal symptoms; no new complaints. Pt reports being "tired" and wanting to rest. Objective: Last Vital Signs Temp Pulse Resp BP Pulse Ox 96.8 F L 100 H 16 110/67 95 09/07/20 08:46 09/07/20 08:46 09/07/20 08:46 09/07/20 08:46 09/06/20 20:50 Gen - NAD, well dev/well nourished, AOx3 CV - RRR, normal s1, s2 Pulm - CTAB, good air entry Mental Status - anxious MSK/ext - gait steady, normal inspection, mild tremor (felt, not seen) Skin - palms moist CBC,CMP WBC 4.2 K/mm3 (4.0-10.0) 09/06/20 07:00 RBC 4.11 M/mm3 (3.60-5.2) 09/06/20 07:00 Hgb 12.0 GM/dL (10.7-15.3) 09/06/20 07:00 Hct 36.4 % (32.4-45.2) 09/06/20 07:00 MCV 88.7 fl (80-96) 09/06/20 07:00 MCH 29.3 pg (25.7-33.7) D 09/06/20 07:00 MCHC 33.1 g/dl (32.0-36.0) 09/06/20 07:00 RDW 16.8 % (11.6-15.6) H 09/06/20 07:00 Plt Count 199 K/MM3 (134-434) 09/06/20 07:00 MPV 8.6 fl (7.5-11.1) 09/06/20 07:00 Sodium 140 mmol/L (136-145) 09/06/20 07:00 Potassium 3.9 mmol/L (3.5-5.1) 09/06/20 07:00 Chloride 107 mmol/L (98-107) 09/06/20 07:00 Carbon Dioxide 26 mmol/L (21-32) 09/06/20 07:00 Anion Gap 7 MMOL/L (8-16) L 09/06/20 07:00 BUN 9.0 mg/dL (7-18) 09/06/20 07:00 Creatinine 0.6 mg/dL (0.55-1.3) 09/06/20 07:00 Est GFR (CKD-EPI)AfAm 114.82 09/06/20 07:00 Est GFR (CKD-EPI)NonAf 99.07 09/06/20 07:00 POC Glucometer 106 UNITS (80-120) 09/06/20 16:44 Random Glucose 111 mg/dL (74-106) H 09/06/20 07:00 Calcium 8.5 mg/dL (8.5-10.1) 09/06/20 07:00 Total Bilirubin 0.5 mg/dL (0.2-1) 09/06/20 07:00 AST 11 U/L (15-37) L 09/06/20 07:00 ALT 11 U/L (13-61) L 09/06/20 07:00 Alkaline Phosphatase 84 U/L (45-117) 09/06/20 07:00 Total Protein 6.3 g/dl (6.4-8.2) L 09/06/20 07:00 Albumin 2.8 g/dl (3.4-5.0) L 09/06/20 07:00 09/07/20 11:20 Assessment: Pt with improving alcohol withdrawal symptoms. 09/07/20 11:21 Plan: Continue librium detox regimen.
[2020-09-07] MEDS: ATORVASTATIN CA 20 MG TABLET (FP) PO SCH (22:39)
[2020-09-07] MEDS: MELATONIN 5 MG TABLETS PO SCH (22:39)
[2020-09-07] MEDS: THIAMINE HCL 100 MG TABLET (FP) PO SCH (22:39)
[2020-09-08] MEDS ORDERED: chlordiazePOXIDE HCL 10 MG CAPSULE PO PRN
[2020-09-08] MEDS: chlordiazePOXIDE HCL 10 MG CAPSULE PO SCH ×4 (05:44→23:35)
[2020-09-08] MEDS: hydrOXYzine PAMOATE 25 MG CAPSULE (FP) PO SCH ×5 (05:45→23:35)
[2020-09-08] MEDS: metFORMIN HCL 500 MG TABLET (FP) PO SCH ×2 (05:48→19:55)
[2020-09-08] MEDS: PRENATAL VITAMINS W/ FOLIC ACID TABLET (FP) PO SCH (10:35)
[2020-09-08] MEDS: FAMOTIDINE 20 MG TABLET PO SCH (10:36)
[2020-09-08] MEDS: NICOTINE 7 MG/24 HOURS TOPICAL PATCH TD SCH (10:36)
[2020-09-08] MEDS: BUDESONIDE/FORMETEROL FUMARATE 80/4.5 mcg INHALER IH SCH ×2 (10:36→23:35)
--- NOTE | 2020-09-08 15:33 | PN ---
S CIWA - CIWA Score Nausea/Vomitin-No Nausea/No Vomiting Muscle Tremors: None Anxiety: 2 Agitation: 1-Slight > Activity Paroxysmal Sweats: 2 Orientation: 0-Oriented Tacttile Disturbances: 0-None Auditory Disturbances: 0-None Visual Disturbances: 0-None Headache: 1-Very Mild CIWA-Ar Total Score: 6 BHS Progress Note (SOAP) Subjective: c/o sweats, anxiety, and headache. Objective: 09/08/20 15:32 Vital Signs 09/08/20 09/08/20 09:20 12:27 Temperature 98.2 F 97.3 F L Pulse Rate 98 H 104 H Respiratory 18 16 Rate Blood Pressure 138/79 145/89 O2 Sat by Pulse 96 Oximetry (%) Laboratory Last Values WBC 4.2 K/mm3 (4.0-10.0) 09/06/20 07:00 RBC 4.11 M/mm3 (3.60-5.2) 09/06/20 07:00 Hgb 12.0 GM/dL (10.7-15.3) 09/06/20 07:00 Hct 36.4 % (32.4-45.2) 09/06/20 07:00 MCV 88.7 fl (80-96) 09/06/20 07:00 MCH 29.3 pg (25.7-33.7) D 09/06/20 07:00 MCHC 33.1 g/dl (32.0-36.0) 09/06/20 07:00 RDW 16.8 % (11.6-15.6) H 09/06/20 07:00 Plt Count 199 K/MM3 (134-434) 09/06/20 07:00 MPV 8.6 fl (7.5-11.1) 09/06/20 07:00 Sodium 140 mmol/L (136-145) 09/06/20 07:00 Potassium 3.9 mmol/L (3.5-5.1) 09/06/20 07:00 Chloride 107 mmol/L (98-107) 09/06/20 07:00 Carbon Dioxide 26 mmol/L (21-32) 09/06/20 07:00 Anion Gap 7 MMOL/L (8-16) L 09/06/20 07:00 BUN 9.0 mg/dL (7-18) 09/06/20 07:00 Creatinine 0.6 mg/dL (0.55-1.3) 09/06/20 07:00 Est GFR (CKD-EPI)AfAm 114.82 09/06/20 07:00 Est GFR (CKD-EPI)NonAf 99.07 09/06/20 07:00 POC Glucometer 113 UNITS (80-120) 09/08/20 11:41 Random Glucose 111 mg/dL (74-106) H 09/06/20 07:00 Calcium 8.5 mg/dL (8.5-10.1) 09/06/20 07:00 Total Bilirubin 0.5 mg/dL (0.2-1) 09/06/20 07:00 AST 11 U/L (15-37) L 09/06/20 07:00 ALT 11 U/L (13-61) L 09/06/20 07:00 Alkaline Phosphatase 84 U/L (45-117) 09/06/20 07:00 Total Protein 6.3 g/dl (6.4-8.2) L 09/06/20 07:00 Albumin 2.8 g/dl (3.4-5.0) L 09/06/20 07:00 Syphilis Serology Non-reactive (NONREACTIVE) 09/05/20 07:00 COVID-19 (MARGIE) Not detected (Not Detected) 09/05/20 19:50 Labs noted. Assessment: 09/08/20 15:32 AOX3, in no acute respiratory distress. Full ROM, ambulating in the unit. Withdrawal symptoms. Plan: continue detox.
[2020-09-08] MEDS: THIAMINE HCL 100 MG TABLET (FP) PO SCH (23:35)
[2020-09-08] MEDS: ATORVASTATIN CA 20 MG TABLET (FP) PO SCH (23:35)
[2020-09-08] MEDS: MELATONIN 5 MG TABLETS PO SCH (23:35)
[2020-09-09] MEDS: metFORMIN HCL 500 MG TABLET (FP) PO SCH ×2 (06:33→18:00)
[2020-09-09] MEDS: chlordiazePOXIDE HCL 10 MG CAPSULE PO SCH ×2 (06:33→18:02)
[2020-09-09] MEDS: hydrOXYzine PAMOATE 25 MG CAPSULE (FP) PO SCH ×5 (06:33→22:54)
[2020-09-09] MEDS: NICOTINE 7 MG/24 HOURS TOPICAL PATCH TD SCH (09:30)
[2020-09-09] MEDS: FAMOTIDINE 20 MG TABLET PO SCH (09:31)
[2020-09-09] MEDS: BUDESONIDE/FORMETEROL FUMARATE 80/4.5 mcg INHALER IH SCH ×2 (09:31→23:02)
[2020-09-09] MEDS: PRENATAL VITAMINS W/ FOLIC ACID TABLET (FP) PO SCH (09:31)
--- NOTE | 2020-09-09 13:36 | PN ---
S CIWA - CIWA Score Nausea/Vomitin-No Nausea/No Vomiting Muscle Tremors: 1-None Visible, but [place] Anxiety: 1-Mildly Anxious Agitation: 0-Normal Activity Paroxysmal Sweats: No Perspiration Orientation: 0-Oriented Tacttile Disturbances: 0-None Auditory Disturbances: 0-None Visual Disturbances: 1-Very Mild Sensitivity Headache: 0-None Present CIWA-Ar Total Score: 3 BHS Progress Note (SOAP) Subjective: 59 years old female was admitted on 09/05/20 for alcohol withdrawal sx management treating with librium detox regiment feels better today discussing aftercare with staff ms bustos prefers to go to [facility] for alcohol abuse treatment received nurse requests to reduce bgm frequency due to patient refuses bgm discontinue achs begin bidac Objective: 09/09/20 13:38 Vital Signs - 24 hr 09/08/20 09/09/20 09/09/20 19:18 07:20 08:35 Temperature 97.0 F L 97.5 F L 97.3 F L Pulse Rate 82 77 94 H Respiratory 16 18 18 Rate Blood Pressure 130/76 105/67 118/82 O2 Sat by Pulse 96 95 Oximetry (%) Laboratory Tests 09/05/20 09/05/20 09/05/20 07:00 19:50 20:30 WBC RBC Hgb Hct MCV MCH MCHC RDW Plt Count MPV Sodium Potassium Chloride Carbon Dioxide Anion Gap BUN Creatinine Est GFR (CKD-EPI)AfAm Est GFR (CKD-EPI)NonAf POC Glucometer 125 Random Glucose Calcium Total Bilirubin AST ALT Alkaline Phosphatase Total Protein Albumin Syphilis Serology Non-reactive COVID-19 (MARGIE) Not detected 09/06/20 09/06/20 09/06/20 07:00 07:00 11:32 WBC 4.2 RBC 4.11 Hgb 12.0 Hct 36.4 MCV 88.7 MCH 29.3 D MCHC 33.1 RDW 16.8 H Plt Count 199 MPV 8.6 Sodium 140 Potassium 3.9 Chloride 107 Carbon Dioxide 26 Anion Gap 7 L BUN 9.0 Creatinine 0.6 Est GFR (CKD-EPI)AfAm 114.82 Est GFR (CKD-EPI)NonAf 99.07 POC Glucometer 128 Random Glucose 111 H Calcium 8.5 Total Bilirubin 0.5 AST 11 L ALT 11 L Alkaline Phosphatase 84 Total Protein 6.3 L Albumin 2.8 L Syphilis Serology COVID-19 (MARGIE) 09/06/20 09/08/20 16:44 11:41 WBC RBC Hgb Hct MCV MCH MCHC RDW Plt Count MPV Sodium Potassium Chloride Carbon Dioxide Anion Gap BUN Creatinine Est GFR (CKD-EPI)AfAm Est GFR (CKD-EPI)NonAf POC Glucometer 106 113 Random Glucose Calcium Total Bilirubin AST ALT Alkaline Phosphatase Total Protein Albumin Syphilis Serology COVID-19 (MARGIE) lab noted Assessment: 09/09/20 13:39 alcohol withdrawal non insulin dependent diabetes Plan: librium regiment
--- NOTE | 2020-09-09 18:39 | PN ---
S Progress Note Note: patient feel weak poor appetite alert,oriented x 3 movement all extremities ok pulse ox 94% no weakness of extremity ambulation on the unit before lung clear on auscultation treatment encourage oral fluid,glucerna 1 can po bid close monitoring
[2020-09-09] MEDS: ATORVASTATIN CA 20 MG TABLET (FP) PO SCH (22:53)
[2020-09-09] MEDS: THIAMINE HCL 100 MG TABLET (FP) PO SCH (22:53)
[2020-09-09] MEDS: MELATONIN 5 MG TABLETS PO SCH (23:02)
[2020-09-10] MEDS ORDERED: chlordiazePOXIDE HCL 10 MG CAPSULE PO ONE (05:00)
[2020-09-10] MEDS: hydrOXYzine PAMOATE 25 MG CAPSULE (FP) PO SCH ×2 (05:55→09:42)
[2020-09-10] MEDS: metFORMIN HCL 500 MG TABLET (FP) PO SCH (06:24)
[2020-09-10 09:15] VITALS: BP 107/72; PULSE 82; TEMP 96.8
[2020-09-10] MEDS: FAMOTIDINE 20 MG TABLET PO SCH (09:43)
[2020-09-10] MEDS: BUDESONIDE/FORMETEROL FUMARATE 80/4.5 mcg INHALER IH SCH (09:43)
[2020-09-10] MEDS: NICOTINE 7 MG/24 HOURS TOPICAL PATCH TD SCH (09:43)
[2020-09-10] MEDS: PRENATAL VITAMINS W/ FOLIC ACID TABLET (FP) PO SCH (09:44)
--- NOTE | 2020-09-10 10:05 | DS ---
[facility] Detox Discharge Summary Admission Date: 09/05/20 Discharge Date: 09/10/20 - History Present History: Alcohol Dependence Additional Comments: 59 years old female was admitted on 09/05/20 for alcohol withdrawal sx management treated with librium detox regiment seen by psychiatrist florecita funez ms bustos has completed librium regiment and is tolerated well General Appearance: Yes: No Apparent Distress, mild Tremorous, not Irritable, mild Anxious HEENTM: Yes: Within Normal Limits Respiratory: Yes: Within Normal Limits, Chest Non-Tender, Normal Breath Sounds Neck: Yes: Within Normal Limits Breast: Yes: Breast Exam Deferred Cardiology: Yes: Within Normal Limits, Regular Rhythm, Regular Rate, S1, S2 Abdominal: Yes: Within Normal Limits Genitourinary: Yes: Within Normal Limits Back: Yes: Within Normal Limits, Normal Inspection Musculoskeletal: Yes: Within Normal Limits, Joint Stiffness Extremities: Yes: Within Normal Limits, Normal Capillary Refill, Normal Ins pection Neurological: Yes: Within Normal Limits, Fully Oriented, Alert, Normal Response Integumentary: Yes: Within Normal Limits, Normal Color, Dry, Warm Lymphatic: Yes: Within Normal Limits Pertinent Past History: time for discharge 49 minutes transferred order set from detox to rehab - Physical Exam Results Vital Signs: Vital Signs Temperature 96.8 F L 09/10/20 09:15 Pulse Rate 82 09/10/20 09:15 Respiratory Rate 18 09/10/20 09:15 Blood Pressure 107/72 09/10/20 09:15 O2 Sat by Pulse Oximetry (%) 97 09/10/20 09:15 Pertinent Admission Physical Exam Findings: alcohol withdrawal Vital Signs - 24 hr 09/09/20 09/09/20 09/09/20 12:40 16:42 18:37 Temperature 97.5 F L 97.5 F L Pulse Rate 96 H 99 H 106 H Respiratory 16 17 17 Rate Blood Pressure 119/77 121/75 O2 Sat by Pulse 95 94 L Oximetry (%) 09/09/20 09/10/20 09/10/20 21:01 07:03 09:15 Temperature 97.1 F L 97.1 F L 96.8 F L Pulse Rate 86 72 82 Respiratory 17 16 18 Rate Blood Pressure 115/73 110/74 107/72 O2 Sat by Pulse 95 97 97 Oximetry (%) Laboratory Tests 10/06/1809/05/20 09/05/20 07:00 19:50 20:30 WBC RBC Hgb Hct MCV MCH MCHC RDW Plt Count MPV Sodium Potassium Chloride Carbon Dioxide Anion Gap BUN Creatinine Est GFR (CKD-EPI)AfAm Est GFR (CKD-EPI)NonAf POC Glucometer 125 Random Glucose Calcium Total Bilirubin AST ALT Alkaline Phosphatase Total Protein Albumin Syphilis Serology Non-reactive COVID-19 (MARGIE) Not detected 09/06/20 09/06/20 09/06/20 07:00 07:00 11:32 WBC 4.2 RBC 4.11 Hgb 12.0 Hct 36.4 MCV 88.7 MCH 29.3 D MCHC 33.1 RDW 16.8 H Plt Count 199 MPV 8.6 Sodium 140 Potassium 3.9 Chloride 107 Carbon Dioxide 26 Anion Gap 7 L BUN 9.0 Creatinine 0.6 Est GFR (CKD-EPI)AfAm 114.82 Est GFR (CKD-EPI)NonAf 99.07 POC Glucometer 128 Random Glucose 111 H Calcium 8.5 Total Bilirubin 0.5 AST 11 L ALT 11 L Alkaline Phosphatase 84 Total Protein 6.3 L Albumin 2.8 L Syphilis Serology COVID-19 (MARGIE) 09/06/20 09/08/20 09/09/20 16:44 11:41 17:21 WBC RBC Hgb Hct MCV MCH MCHC RDW Plt Count MPV Sodium Potassium Chloride Carbon Dioxide Anion Gap BUN Creatinine Est GFR (CKD-EPI)AfAm Est GFR (CKD-EPI)NonAf POC Glucometer 106 113 194 Random Glucose Calcium Total Bilirubin AST ALT Alkaline Phosphatase Total Protein Albumin Syphilis Serology COVID-19 (MARGIE) long history of diabetes treated with metformin 500mg po bid ac - Treatment Hospital Course: Detox Protocol Followed, Detoxed Safely, Responded well, Discha rged Condition Good, Rehab Referral Accepted Patient has Accepted a Re[facility] Referral to: [facility] - Medication Discharge Medications: Ambulatory Orders Mirtazapine 30 mg PO HS 10/05/18 Risperidone 1 mg PO BID 08/24/19 oxyCODONE HCL [Oxycodone HCl] 30 mg PO Q4H 08/24/19 Bupropion HCl [Wellbutrin Sr] 150 mg PO DAILY 10/09/19 Albuterol Sulfate Inhaler - [Ventolin HFA Inhaler -] 2 inh PO Q4H PRN #1 inhaler 10/19/19 Atorvastatin Ca [Lipitor] 20 mg PO HS #14 tablet 10/19/19 Budesonide/Formeterol Fumarate [SYMBICORT 80/4.5mcg -] 1 inh PO BID #1 inhaler 10/19/19 Famotidine [Pepcid] 40 mg PO DAILY #14 tablet 10/19/19 Metformin HCl [Glucophage] 500 mg PO BID #30 tablet 10/19/19 Mirtazapine [Remeron -] 15 mg PO HS #30 tablet 10/19/19 Mometasone/Formoterol [Dulera 100 Mcg-5 Mcg Inhaler] 1 inh IH BID #1 hfa.aer.ad 10/19/19 Montelukast Sodium [Singulair] 10 mg PO DAILY #14 tablet 10/19/19 Risperidone [Risperdal -] 0.5 mg PO BID #60 tablet 10/19/19 - Diagnosis (1) Alcohol dependence with uncomplicated withdrawal Current Visit: Yes Status: Acute (2) Asthma Current Visit: Yes Status: Chronic Qualifiers: Asthma severity: mild Asthma persistence: intermittent Asthma complication type: with status asthmaticus Qualified Code(s): J45.22 - Mild intermittent asthma with status asthmaticus (3) COPD (chronic obstructive pulmonary disease) Current Visit: Yes Status: Chronic Qualifiers: Chronic bronchitis type: simple (4) DM2 (diabetes mellitus, type 2) Current Visit: Yes Status: Chronic Qualifiers: Diabetes mellitus halfway insulin use: without database developer use Diabetes mellitus complication status: without complication Qualified Code(s): E11.9 - Type 2 diabetes mellitus without complications (5) GERD (gastroesophageal reflux disease) Current Visit: Yes Status: Chronic Qualifiers: Esophagitis presence: without esophagitis Qualified Code(s): K21.9 - Gastro-esophageal reflux disease without esophagitis (6) HLD (hyperlipidemia) Current Visit: Yes Status: Chronic Qualifiers: Hyperlipidemia type: pure hypertriglyceridemia Qualified Code(s): E78.1 - Pure hyperglyceridemia (7) Nicotine dependence Current Visit: Yes Status: Acute Qualifiers: Nicotine product type: cigarettes Substance use status: in withdrawal Qualified Code(s): F17.213 - Nicotine dependence, cigarettes, with withdrawal (8) Substance induced mood disorder Current Visit: Yes Status: Suspected - AMA Did Patient Leave Against Medical Advice: No CIWA Score - CIWA Score Nausea/Vomitin-No Nausea/No Vomiting Muscle Tremors: 1-None Visible, but [place] Anxiety: 0-No Anxiety, at Ease Agitation: 0-Normal Activity Paroxysmal Sweats: No Perspiration Orientation: 0-Oriented Tacttile Disturbances: 0-None Auditory Disturbances: 0-None Visual Disturbances: 0-None Headache: 0-None Present CIWA-Ar Total Score: 1
== END 2020-09-10 11:15 | disposition other institution (70) | DRG 774 ==
LOC: YASAS 16:06 → Y3N 19:37
PROVIDERS: ADMIT Allergy & Immunology; ATTEND Allergy & Immunology
PROC: HZ2ZZZZ Detoxification Services for Substance Abuse Treatment (ICD-10-PCS; principal; 2020-09-05)
DX: F10.230 Alcohol dependence with withdrawal, uncomplicated (principal); F14.20 Cocaine dependence, uncomplicated; F17.213 Nicotine dependence, cigarettes, with withdrawal; F19.24 Other psychoactive substance dependence with psychoactive substance-induced mood disorder; F31.9 Bipolar disorder, unspecified; E78.5 Hyperlipidemia, unspecified; E11.9 Type 2 diabetes mellitus without complications; Z79.84 Long term (current) use of oral hypoglycemic drugs; J44.9 Chronic obstructive pulmonary disease, unspecified; J45.20 Mild intermittent asthma, uncomplicated; K21.9 Gastro-esophageal reflux disease without esophagitis; Z85.118 Personal history of other malignant neoplasm of bronchus and lung; Z90.2 Acquired absence of lung [part of]; Z98.890 Other specified postprocedural states
CPT/HCPCS: 36415; 80053; 82962; 85027; 86780; 93005; 93010; C9803; U0003